=== PATIENT | female | born 1960 | race Caucasian/White ===

== ENCOUNTER 2021-01-15 10:35 | Inpatient (IN) | payer MEDICARE, MEDICAID ==
[~2021-01-15] VITALS: Ht 157.5 cm; Wt 57.3 kg
[2021-01-15] MEDS ORDERED: methylPREDNISolone sod succ 125mg/2ml vial IV ONE (10:45)
[2021-01-15] MEDS ORDERED: albuterol 2.5 MG/3 ML nebule NEB ONE (10:45)
[2021-01-15] MEDS ORDERED: iohexol 350MG/ML 100ml bottle IV ONE (11:10)
[2021-01-15 11:20] LABS: BASOPHILS # (AUTO) 0.1 X10'3 (0-0.2); BASOPHILS % (AUTO) 0.8 % (0-1); EOSINOPHILS # (AUTO) 0.1 X10'3 (0-0.9); EOSINOPHILS % (AUTO) 1.1 % (0-6); HEMATOCRIT 30.2 % (35.0-45.0); LYMPHOCYTES # (AUTO) 1.9 X10'3 (1.1-4.8); LYMPHOCYTES % (AUTO) 26.4 % (21-51); MEAN CORPUSCULAR HEMOGLOBIN 32.2 PG (27.0-31.0); MEAN CORPUSCULAR HGB CONC 33.2 g/dL (33.0-36.5); MEAN PLATELET VOLUME 8.1 FL (7.4-10.4); MONOCYTES # (AUTO) 0.6 X10'3 (0-0.9); MONOCYTES % (AUTO) 7.6 % (2-12); NEUTROPHILS # (AUTO) 4.7 X10'3 (1.8-7.7); NEUTROPHILS % (AUTO) 64.1 % (42-75); PLATELET COUNT 294 X10'3 (140-440); RED BLOOD COUNT 3.11 X10'6 (4.20-5.60); RED CELL DISTRIBUTION WIDTH 15.3 % (11.5-14.5); WHITE BLOOD COUNT 7.3 X10'3 (4.5-11.0)
[2021-01-15 11:35] LABS: ABG BASE EXCESS -7.8 mmol/L (-2.0-2.0); ABG HCO3 17.4 mmol/L (22.0-26.0); ABG OXYGEN SATURATION 95.3 % (94-97); ABG PCO2 (T) 33.9 mmHg (32.0-45.0); ABG PO2 (T) 82.9 mmHg (75.0-100.0); ALLEN'S TEST POSITIVE; FCOHb 0.7 % (0.0-3.9); FMetHb 0.4 % (0.0-1.5); FO2Hb 94.3 % (94-97); PATIENT TEMPERATURE 36.7; RESPIRATORY RATE 12 b/min; TOTAL HEMOGLOBIN 10.8 G/dl (12.0-16.0)
[2021-01-15 11:36] LABS: ALANINE AMINOTRANSFERASE 26 U/L (12-78); ALBUMIN/GLOBULIN RATIO 0.7 (1.1-1.5); ALKALINE PHOSPHATASE 96 IU/L (46-116); ANION GAP 14 (8-16); ASPARTATE AMINO TRANSFERASE 38 U/L (10-37); BILIRUBIN,TOTAL 0.8 MG/DL (0.1-1.0); BLOOD UREA NITROGEN 49 MG/DL (7-18); BUN/CREATININE RATIO 25.1 (6.6-38.0); CALCIUM 8.3 MG/DL (8.5-10.1); CHLORIDE 103 MMOL/L (99-107); CREATININE 1.95 MG/DL (0.40-0.90); GLUCOSE 137 MG/DL (70-104); POTASSIUM 4.8 MMOL/L (3.5-5.1); SODIUM 135 MMOL/L (135-145); TOTAL CARBON DIOXIDE 17.9 MMOL/L (24-32); TOTAL PROTEIN 7.2 G/DL (6.4-8.2); eGFR 26 ML/MIN
--- NOTE | 2021-01-15 11:43 | NUR ---
RELIEVING RN FOR BREAK, PT IS RESTING QUIETLY ON GURNEY, AUGUSTA BIPAP WELL, NO RESP DISTRESS,
[2021-01-15 12:04] LABS: PARTIAL THROMBOPLASTIN TIME 27 SECONDS (22-32)
[2021-01-15] MEDS ORDERED: aspirin 81mg tab.chew PO ONE (13:10)
[2021-01-15] MEDS ORDERED: nitroGLYCERIN 0.2mg/hour patch TD ONE (13:10)
[2021-01-15] MEDS ORDERED: FENO160T30 PO (13:40)
[2021-01-15] MEDS ORDERED: METO50TA17 PO (13:40)
[2021-01-15] MEDS ORDERED: LISI5TAB22 PO (13:40)
[2021-01-15] MEDS ORDERED: VERA240C2 PO (13:40)
[2021-01-15] MEDS ORDERED: EZET10TA6 PO (13:42)
[2021-01-15] MEDS ORDERED: ASPI-611 PO (13:42)
[2021-01-15] MEDS ORDERED: RIVA2.5T PO (13:42)
[2021-01-15] MEDS ORDERED: ROSU40TA PO (13:42)
[2021-01-15] MEDS ORDERED: mag hydrox/Alum hydrox/simeth 30ml oral suspension PO PRN (14:20)
[2021-01-15] MEDS ORDERED: acetaminophen 325mg tablet PO PRN (14:20)
[2021-01-15] MEDS ORDERED: ondansetron/PF 4mg/2ml inj IV PRN (14:20)
[2021-01-15] MEDS ORDERED: magnesium hydroxide 30ml (MOM) UD suspension PO PRN (14:20)
[2021-01-15] MEDS ORDERED: enoxaparin 60mg/0.6ml syringe SUBCUT ONE (15:25)
[2021-01-15] MEDS ORDERED: furosemide 10 MG/1 ML 10ml inj IV ONE (15:30)
[2021-01-15] MEDS ORDERED: albuterol 2.5 MG/3 ML nebule NEB PRN (18:20)
--- NOTE | 2021-01-15 18:30 | NUR ---
ASSUMED CARE OF PT. PT SLEEPING COMFORTABLY. AWAKENS SPONTANEOUSLY WHEN I ENTER ROOM. MEAL TRAY AT BEDSIDE.
[2021-01-15] MEDS: docusate sod 100mg capsule PO SCH (20:00)
[2021-01-15] MEDS: XARELTO 2.5 MG PO SCH (20:00)
[2021-01-15] MEDS: furosemide 40mg/4ml inj IV SCH (21:20)
[2021-01-15] MEDS: methylPREDNISolone sod succ 125mg/2ml vial IV SCH (21:20)
[2021-01-15] MEDS ORDERED: rivaroxaban 10mg tablet PO ONE (22:20)
[2021-01-15 22:21] LABS: CLARITY,URINE CLEAR (Clear); COLOR,URINE YELLOW (Yellow); UA COLLECTION TYPE NON-SPECIFIED
[2021-01-15 22:22] LABS: GLUCOSE, URINE NEGATIVE (Neg); KETONES,URINE NEGATIVE (Neg); LEUKOCYTE ESTERASE ,URINE NEGATIVE (Neg); NITRITES, URINE NEGATIVE (Neg); OCCULT BLOOD,URINE NEGATIVE (Neg); PROTEIN,URINE NEGATIVE (Neg); UROBILINOGEN,URINE 0.2 E.U/dL (0.2-1.0)
[2021-01-15 22:23] LABS: URINE AMPHETAMINE SCREEN NEGATIVE (Neg); URINE BARBITUATE SCREEN NEGATIVE (Neg); URINE BENZODIAZEPINES SCREEN NEGATIVE (Neg); URINE CANNABINOID SCREEN POSITIVE (Neg); URINE COCAINE SCREEN NEGATIVE (Neg); URINE METHADONE SCREEN NEGATIVE (Neg); URINE OPIATE SCREEN NEGATIVE (Neg); URINE PHENCYCLIDINE SCREEN NEGATIVE (Neg)
--- NOTE | 2021-01-15 23:00 | NUR ---
SPOKE TO DR AGUILAR AND PHARMACY CONCERNING PT'S XARELTO. PT TAKES 2.5 MG TWICE A DAY BUT PHARMACY ONLY CARRIES 10 MG TABS. PT DID NOT BRING HER OWN MEDICATION WITH HER. DR AGUILAR GAVE VERBAL ORDER FOR ONE DOSE 5MG XARELTO TO BE GIVEN NOW.
[2021-01-16 02:36] LABS: BASOPHILS % (AUTO) 0.5 % (0-1); EOSINOPHILS % (AUTO) 0 % (0-6); HEMATOCRIT 31.3 % (35.0-45.0); HEMOGLOBIN 10.5 g/dl (12.0-16.0); LYMPHOCYTES % (AUTO) 25.3 % (21-51); MEAN CORPUSCULAR HGB CONC 33.5 g/dL (33.0-36.5); MEAN CORPUSCULAR VOLUME 95.5 FL (78-98); MEAN PLATELET VOLUME 8.6 FL (7.4-10.4); MONOCYTES % (AUTO) 1.2 % (2-12); NEUTROPHILS # (AUTO) 2.9 X10'3 (1.8-7.7); PLATELET COUNT 277 X10'3 (140-440); RED BLOOD COUNT 3.28 X10'6 (4.20-5.60); RED CELL DISTRIBUTION WIDTH 15.3 % (11.5-14.5)
[2021-01-16 02:54] LABS: ALANINE AMINOTRANSFERASE 26 U/L (12-78); ALBUMIN 3.1 G/DL (3.4-5.0); ALBUMIN/GLOBULIN RATIO 0.7 (1.1-1.5); ALKALINE PHOSPHATASE 69 IU/L (46-116); ANION GAP 12 (8-16); ASPARTATE AMINO TRANSFERASE 41 U/L (10-37); BLOOD UREA NITROGEN 57 MG/DL (7-18); BUN/CREATININE RATIO 29.7 (6.6-38.0); CHLORIDE 105 MMOL/L (99-107); CREATININE 1.92 MG/DL (0.40-0.90); GLUCOSE 136 MG/DL (70-104); POTASSIUM 4.5 MMOL/L (3.5-5.1); SODIUM 138 MMOL/L (135-145); TOTAL CARBON DIOXIDE 20.8 MMOL/L (24-32); TOTAL PROTEIN 7.5 G/DL (6.4-8.2); eGFR 27 ML/MIN
--- NOTE | 2021-01-16 03:08 | NUR ---
PT SITTING UP AND PLAYING ON HER PHONE. NO COMPLAINTS. SHE REPORTS FEELING MUCH BETTER THAN WHEN SHE FIRST CAME IN.
[2021-01-16 06:00] VITALS: BP 122/69
--- NOTE | 2021-01-16 06:00 | NUR ---
received ED report, patient comfortable and without complaint in 3012A. Vitals were taken on patient and MRSA swab completed before it was time for shift change
--- NOTE | 2021-01-16 06:37 | NUR ---
Problems reprioritized. Patient report given, questions answered & plan of care reviewed with Radha MEJIA.
[2021-01-16] MEDS: XARELTO 2.5 MG PO SCH (08:00)
[2021-01-16] MEDS ORDERED: aspirin 81mg, enteric-coated 1 TAB TABLET.DR PO SCH (08:00)
[2021-01-16] MEDS ORDERED: ezetimibe 10mg tablet PO SCH (08:00)
[2021-01-16] MEDS ORDERED: fenofibrate 145mg tablet PO SCH (08:00)
[2021-01-16] MEDS ORDERED: atorvastatin 20mg tablet PO SCH (08:00)
[2021-01-16] MEDS ORDERED: metoprolol tartrate 50mg tablet PO SCH (08:00)
[2021-01-16] MEDS ORDERED: lisinopril 5mg tablet PO SCH (08:00)
[2021-01-16] MEDS ORDERED: CefTRIAXone/D5W-Rocephin 1gm 50 ML IV SCH (08:00)
[2021-01-16] MEDS ORDERED: verapamil SR 120mg (sust. release) tab PO SCH (08:00)
[2021-01-16] MEDS: methylPREDNISolone sod succ 125mg/2ml vial IV SCH (09:00)
[2021-01-16] MEDS: furosemide 40mg/4ml inj IV SCH (09:00)
[2021-01-16] MEDS: docusate sod 100mg capsule PO SCH (09:01)
[2021-01-16] MEDS ORDERED: gabapentin 300mg capsule PO ONE (09:25)
[2021-01-16] MEDS ORDERED: PRED20TA PO (10:43)
[2021-01-16] MEDS ORDERED: FURO-150 PO (10:43)
[2021-01-16] MEDS ORDERED: DOXY100C2 PO (10:43)
[2021-01-16 11:00] VITALS: BP 140/74
--- NOTE | 2021-01-16 13:45 | NUR ---
Pt stable for discharge. All d/c paperwork reviewed with pt. Pt verbalized understanding. All questions answered. New prescriptions faxed to [facility] and verified received. PIV removed from left forearm. tolerated well. telebox 23 removed and given to Mbite. All personal belongings sent with pt. Pt left via wheelchair by nursing staff to personal vehicle.
== END 2021-01-16 13:45 | disposition home or self-care (01) | DRG 189 ==
LOC: ER 10:35 → ED HOLD 14:21 → PCU 3S 01-16 09:30
PROVIDERS: ADMIT Family Medicine; ATTEND Family Medicine
PROC: 5A09357 Assistance with Respiratory Ventilation, Less than 24 Consecutive Hours, Continuous Positive Airway Pressure (ICD-10-PCS; principal; 2021-01-15)
DX: J96.01 Acute respiratory failure with hypoxia (principal); I21.A1 Myocardial infarction type 2; I50.33 Acute on chronic diastolic (congestive) heart failure; I13.0 Hypertensive heart and chronic kidney disease with heart failure and stage 1 through stage 4 chronic kidney disease, or unspecified chronic kidney disease; J44.1 Chronic obstructive pulmonary disease with (acute) exacerbation; I42.9 Cardiomyopathy, unspecified; N18.9 Chronic kidney disease, unspecified; Z20.822 Contact with and (suspected) exposure to COVID-19; E78.5 Hyperlipidemia, unspecified; F12.90 Cannabis use, unspecified, uncomplicated; I73.9 Peripheral vascular disease, unspecified; Z91.14 Patient's other noncompliance with medication regimen; Z91.19 Patient's noncompliance with other medical treatment and regimen; Z88.8 Allergy status to other drugs, medicaments and biological substances; Z90.49 Acquired absence of other specified parts of digestive tract; Z88.7 Allergy status to serum and vaccine; Z71.51 Drug abuse counseling and surveillance of drug abuser
CPT/HCPCS: 36415; 36600; 71045; 80053; 80305; 81003; 82803; 83880; 84443; 84484; 85018; 85025; 85610; 85730; 87081; 87635; 93005; 93306; 94640; 94660; 94760; 99291; C9803; G0378; J1650; J1940; J2930; Q9967

== ENCOUNTER 2021-03-20 20:46 | Inpatient (IN) | payer MEDICARE, MEDICAID ==
[~2021-03-20] VITALS: Ht 172.7 cm; Wt 60.0 kg
[~2021-03-20 20:46] MED LIST: ASPI-611 PO; EZET10TA6 PO; FENO160T30 PO; METO50CA PO; ONDA4TAB6 PO; RIVA2.5T PO; ROSU40TA PO; VERA240C2 PO
[2021-03-20] MEDS ORDERED: nitroGLYCERIN-Tridil 50MG/D5W 250 ML IV PRN (21:00)
[2021-03-20] MEDS ORDERED: nitroGLYCERIN 0.4mg SUBLingual tab SL PRN (21:00)
[2021-03-20] MEDS: nitroGLYCERIN-Tridil 50MG/D5W 250 ML IV PRN ×2 (21:14→22:38)
[2021-03-20 21:17] LABS: BASOPHILS # (AUTO) 0.1 X10'3 (0-0.2); BASOPHILS % (AUTO) 0.7 % (0-1); EOSINOPHILS # (AUTO) 0.2 X10'3 (0-0.9); HEMOGLOBIN 8.9 g/dl (12.0-16.0); LYMPHOCYTES # (AUTO) 8.2 X10'3 (1.1-4.8); LYMPHOCYTES % (AUTO) 52.5 % (21-51); MEAN CORPUSCULAR HGB CONC 30.6 g/dL (33.0-36.5); MEAN PLATELET VOLUME 8.4 FL (7.4-10.4)
[2021-03-20 21:19] LABS: EOSINOPHILS % (AUTO) 1.1 % (0-6); MEAN CORPUSCULAR HEMOGLOBIN 31.1 PG (27.0-31.0); MEAN CORPUSCULAR VOLUME 101.8 FL (78-98); MONOCYTES % (AUTO) 6.3 % (2-12); NEUTROPHILS # (AUTO) 6.1 X10'3 (1.8-7.7); NEUTROPHILS % (AUTO) 39.4 % (42-75); PLATELET COUNT 225 X10'3 (140-440); RED BLOOD COUNT 2.84 X10'6 (4.20-5.60); RED CELL DISTRIBUTION WIDTH 22.5 % (11.5-14.5); WHITE BLOOD COUNT 15.6 X10'3 (4.5-11.0)
[2021-03-20 21:20] LABS: ALANINE AMINOTRANSFERASE 12 U/L (12-78); ALBUMIN/GLOBULIN RATIO 0.7 (1.1-1.5); ALKALINE PHOSPHATASE 112 IU/L (46-116); ANION GAP 18 (8-16); ASPARTATE AMINO TRANSFERASE 40 U/L (10-37); BILIRUBIN,TOTAL 0.9 MG/DL (0.1-1.0); BLOOD UREA NITROGEN 60 MG/DL (7-18); BUN/CREATININE RATIO 30.8 (6.6-38.0); CALCIUM 8.7 MG/DL (8.5-10.1); CHLORIDE 104 MMOL/L (99-107); CREATININE 1.95 MG/DL (0.40-0.90); GLUCOSE 171 MG/DL (70-104); POTASSIUM 4.8 MMOL/L (3.5-5.1); SODIUM 137 MMOL/L (135-145); TOTAL CARBON DIOXIDE 15.4 MMOL/L (24-32); TOTAL PROTEIN 7.2 G/DL (6.4-8.2); eGFR 26 ML/MIN
[2021-03-20] MEDS ORDERED: GABA300T25 PO (21:23)
[2021-03-20 21:28] LABS: C-REACTIVE PROTEIN 0.42 MG/DL (0.0-0.5); MAGNESIUM 2.2 MG/DL (1.5-2.4)
[2021-03-20 21:29] LABS: ABG BASE EXCESS -11.5 mmol/L (-2.0-2.0); ABG HCO3 14.4 mmol/L (22.0-26.0); ABG OXYGEN SATURATION 98.3 % (94-97); ABG PCO2 (T) 31.7 mmHg (32.0-45.0); ABG PO2 (T) 127.8 mmHg (75.0-100.0); ALLEN'S TEST POSITIVE; FCOHb 1.3 % (0.0-3.9); FMetHb 0.3 % (0.0-1.5); FO2Hb 96.7 % (94-97); PATIENT TEMPERATURE 36.6; RESPIRATORY RATE 12 b/min; TOTAL HEMOGLOBIN 9.4 G/dl (12.0-16.0)
[2021-03-20 21:38] LABS: APTT 29 SECONDS (22-32)
[2021-03-20 21:56] LABS: PLATELET ESTIMATE NORMAL; TOTAL CELLS COUNTED 100
[2021-03-20 21:57] LABS: ANISOCYTOSIS 3+; STOMATOCYTES 1+
[2021-03-20 21:58] LABS: ELLIPTOCYTES FEW; HYPOCHROMASIA 1+; POLYCHROMASIA FEW
[2021-03-20 22:08] LABS: D-DIMER 16.35 MG/L FEU (0-0.50)
--- NOTE | 2021-03-20 22:12 | NUR ---
Patient appears asleep and is improved. remains on bipap and nitro gtt 10mcg/min. Will CTM.
[2021-03-20] MEDS ORDERED: iohexol 350MG/ML 100ml bottle IV ONE (22:32)
[2021-03-20] MEDS ORDERED: enalaprilat dihydrate 2.5mg/2ml vial IV ONE (23:00)
[2021-03-20 23:35] LABS: ABG BASE EXCESS -8.5 mmol/L (-2.0-2.0); ABG HCO3 16.6 mmol/L (22.0-26.0); ABG OXYGEN SATURATION 99.5 % (94-97); ABG PCO2 (T) 31.9 mmHg (32.0-45.0); ABG PO2 (T) 254.7 mmHg (75.0-100.0); ALLEN'S TEST POSITIVE; FCOHb 0.8 % (0.0-3.9); FMetHb 0.2 % (0.0-1.5); FO2Hb 98.5 % (94-97); PATIENT TEMPERATURE 36.8; RESPIRATORY RATE 12 b/min; TOTAL HEMOGLOBIN 8.1 G/dl (12.0-16.0)
[2021-03-21] MEDS ORDERED: magnesium Cl slow-release 64mg tablet PO PRN (01:10)
[2021-03-21] MEDS ORDERED: potassium Cl 20 mEq SR tablet PO PRN ×2 (01:10)
[2021-03-21] MEDS ORDERED: potassium CL 10mEq/100ml bag 100 ML IV PRN (01:10)
[2021-03-21] MEDS ORDERED: acetaminophen 325mg tablet PO PRN ×2 (01:10)
[2021-03-21] MEDS ORDERED: magnesium 2GM in 50ml NS 50 ML IV PRN (01:10)
[2021-03-21] MEDS ORDERED: magnesium 4gm in 100ml NS 100 ML IV PRN (01:10)
[2021-03-21] MEDS ORDERED: magnesium hydroxide 30ml (MOM) UD suspension PO PRN (01:10)
[2021-03-21] MEDS: heparin, porcine 5000 units/ml vial SQ SCH ×4 (01:14→23:22)
[2021-03-21] MEDS ORDERED: ondansetron 4mg rapidly disintigrating tab PO PRN (01:20)
[2021-03-21] MEDS: normal saline 1000ml 1,000 ML IV SCH ×2 (01:41→21:10)
[2021-03-21] MEDS: nitroGLYCERIN-Tridil 50MG/D5W 250 ML IV PRN (01:42)
[2021-03-21 01:54] LABS: MAGNESIUM 2.1 MG/DL (1.5-2.4); POTASSIUM 5.2 MMOL/L (3.5-5.1)
[2021-03-21] MEDS ORDERED: albuterol 2.5 MG/3 ML nebule NEB SCH (04:00)
--- NOTE | 2021-03-21 05:14 | NUR ---
pt complains of VERDE now. ongoing nitro gtt at 20mcg/min - see MAR
[2021-03-21 05:45] LABS: CLARITY,URINE CLEAR (Clear); GLUCOSE, URINE NEGATIVE (Neg); KETONES,URINE NEGATIVE (Neg); LEUKOCYTE ESTERASE ,URINE NEGATIVE (Neg); NITRITES, URINE NEGATIVE (Neg); OCCULT BLOOD,URINE NEGATIVE (Neg); PROTEIN,URINE NEGATIVE (Neg); UROBILINOGEN,URINE 0.2 E.U/dL (0.2-1.0)
[2021-03-21 05:55] LABS: UA COLLECTION TYPE VOIDED
[2021-03-21 05:56] LABS: COLOR,URINE STRAW (Yellow)
[2021-03-21] MEDS: aspirin 81mg, enteric-coated 1 TAB TABLET.DR PO SCH (08:00)
[2021-03-21] MEDS: furosemide 40mg/4ml inj IV SCH ×2 (08:00→22:20)
[2021-03-21] MEDS: ezetimibe 10mg tablet PO SCH (08:00)
[2021-03-21] MEDS ORDERED: non-formulary drug (Rivaroxaban (Xarelto) 1 TAB) PO SCH (08:00)
[2021-03-21] MEDS: metoprolol succinate 25mg (24-HOUR) SR. Tablet PO SCH (08:00)
[2021-03-21] MEDS: K and/or MAG REPLACEMENT MC SCH ×2 (08:00→20:00)
[2021-03-21] MEDS: atorvastatin 20mg tablet PO SCH (08:00)
[2021-03-21] MEDS: methylPREDNISolone sod succ 125mg/2ml vial IV SCH ×2 (08:00→22:20)
[2021-03-21] MEDS: verapamil SR 120mg (sust. release) tab PO SCH ×2 (08:00→21:20)
[2021-03-21] MEDS: CefTRIAXone 2gm/D5W 50ml BAG 50 ML IV SCH (08:00)
[2021-03-21] MEDS ORDERED: ipratropium/albuterol 3ml nebule NEB PRN (08:25)
[2021-03-21] MEDS ORDERED: albuterol 2.5 MG/3 ML nebule NEB PRN (08:25)
--- NOTE | 2021-03-21 09:10 | NUR ---
ALL MEDICATION CHECKED W/5 RIGHTS. SCANNER NOT WORKING. PURPOSE AND SIDE EFFECTS DISCUSSED W/ PT.
[2021-03-21 09:16] LABS: EOSINOPHILS % (AUTO) 0.3 % (0-6); MONOCYTES # (AUTO) 0.7 X10'3 (0-0.9)
[2021-03-21 09:18] LABS: BASOPHILS # (AUTO) 0.1 X10'3 (0-0.2); BASOPHILS % (AUTO) 0.9 % (0-1); HEMATOCRIT 25.6 % (35.0-45.0); LYMPHOCYTES % (AUTO) 19.9 % (21-51); MEAN CORPUSCULAR HEMOGLOBIN 31.5 PG (27.0-31.0); MEAN CORPUSCULAR HGB CONC 31.4 g/dL (33.0-36.5); MEAN CORPUSCULAR VOLUME 100.3 FL (78-98); MEAN PLATELET VOLUME 8.3 FL (7.4-10.4); MONOCYTES % (AUTO) 7.3 % (2-12); NEUTROPHILS % (AUTO) 71.6 % (42-75); PLATELET COUNT 182 X10'3 (140-440); RED BLOOD COUNT 2.55 X10'6 (4.20-5.60); RED CELL DISTRIBUTION WIDTH 22.9 % (11.5-14.5); WHITE BLOOD COUNT 9.8 X10'3 (4.5-11.0)
[2021-03-21 10:03] LABS: ALANINE AMINOTRANSFERASE 19 U/L (12-78); ALBUMIN 2.8 G/DL (3.4-5.0); ALBUMIN/GLOBULIN RATIO 0.7 (1.1-1.5); ALKALINE PHOSPHATASE 85 IU/L (46-116); ANION GAP 13 (8-16); ASPARTATE AMINO TRANSFERASE 47 U/L (10-37); BILIRUBIN,TOTAL 0.9 MG/DL (0.1-1.0); BLOOD UREA NITROGEN 58 MG/DL (7-18); BUN/CREATININE RATIO 33.1 (6.6-38.0); CALCIUM 8.9 MG/DL (8.5-10.1); CHLORIDE 107 MMOL/L (99-107); CREATININE 1.75 MG/DL (0.40-0.90); GLUCOSE 117 MG/DL (70-104); POTASSIUM 5.2 MMOL/L (3.5-5.1); SODIUM 139 MMOL/L (135-145); TOTAL CARBON DIOXIDE 18.8 MMOL/L (24-32); TOTAL PROTEIN 6.6 G/DL (6.4-8.2); eGFR 30 ML/MIN
[2021-03-21] MEDS ORDERED: hydrALAZINE 20mg/ml inj. IV PRN (10:50)
[2021-03-21] MEDS ORDERED: LISI5TAB22 PO (11:14)
--- NOTE | 2021-03-21 12:13 | NUR ---
SPOKE W/ DR. DARNELL FOR ORDER CLARIFICATION. PER MD; ADMINISTER HYDRALAZINE 10MG FOR HTN. CONT. NITRO GTT W/ GOAL TO TITRATE NITRO DOSE.
[2021-03-21] MEDS ORDERED: lisinopril 20mg tablet PO ONE (15:25)
--- NOTE | 2021-03-21 19:17 | NUR ---
assumed care of patient. placed patient on an inpatient bed. Advocated to CN for room assignment. see MAR/ patient is aox4 98% RA and bp within acceptable range. patient is asking about her verapamil. will notify hospitalist.
[2021-03-21] MEDS ORDERED: temazepam 15mg capsule PO PRN (21:00)
[2021-03-21 22:00] VITALS: BP 139/55
[2021-03-21] MEDS: lactobacillus rhamnosus 10,000 MMU CELLS/CAPSULE PO SCH (22:20)
[2021-03-22 02:00] VITALS: BP 160/77
--- NOTE | 2021-03-22 06:30 | NUR ---
Patient in room PCU 3017. I have received report from Asmita RN and had the opportunity to ask questions and assume patient care. Patient is up and watching tv, asked questions about the plan of care for the day. Patient is wanting to be discharged if possible. All needs are met at this time.
[2021-03-22 07:09] LABS: BASOPHILS # (AUTO) 0.1 X10'3 (0-0.2); BASOPHILS % (AUTO) 0.8 % (0-1); EOSINOPHILS % (AUTO) 0.2 % (0-6); HEMATOCRIT 25.1 % (35.0-45.0); HEMOGLOBIN 7.9 g/dl (12.0-16.0); LYMPHOCYTES # (AUTO) 2.5 X10'3 (1.1-4.8); LYMPHOCYTES % (AUTO) 29.6 % (21-51); MEAN CORPUSCULAR HEMOGLOBIN 31.5 PG (27.0-31.0); MEAN CORPUSCULAR HGB CONC 31.6 g/dL (33.0-36.5); MEAN CORPUSCULAR VOLUME 99.6 FL (78-98); MEAN PLATELET VOLUME 8.7 FL (7.4-10.4); MONOCYTES % (AUTO) 11.8 % (2-12); NEUTROPHILS # (AUTO) 4.8 X10'3 (1.8-7.7); NEUTROPHILS % (AUTO) 57.6 % (42-75); PLATELET COUNT 199 X10'3 (140-440); RED BLOOD COUNT 2.52 X10'6 (4.20-5.60); RED CELL DISTRIBUTION WIDTH 22.7 % (11.5-14.5); WHITE BLOOD COUNT 8.4 X10'3 (4.5-11.0)
[2021-03-22 07:28] LABS: ALANINE AMINOTRANSFERASE 19 U/L (12-78); ALBUMIN 2.8 G/DL (3.4-5.0); ALBUMIN/GLOBULIN RATIO 0.8 (1.1-1.5); ALKALINE PHOSPHATASE 71 IU/L (46-116); ANION GAP 13 (8-16); ASPARTATE AMINO TRANSFERASE 39 U/L (10-37); BILIRUBIN,TOTAL 0.8 MG/DL (0.1-1.0); BLOOD UREA NITROGEN 63 MG/DL (7-18); BUN/CREATININE RATIO 38.9 (6.6-38.0); CALCIUM 9.3 MG/DL (8.5-10.1); CHLORIDE 108 MMOL/L (99-107); CHOL/HDL RATIO 14.2 (0.00-4.99); CHOLESTEROL 128 MG/DL (0-200); CREATININE 1.62 MG/DL (0.40-0.90); GLUCOSE 105 MG/DL (70-104); HDL CHOLESTEROL 9 MG/DL (35-60); LDL CHOLESTEROL 88 MG/DL (50-100); POTASSIUM 4.5 MMOL/L (3.5-5.1); SODIUM 140 MMOL/L (135-145); TOTAL CARBON DIOXIDE 19.2 MMOL/L (24-32); TOTAL PROTEIN 6.5 G/DL (6.4-8.2); TRIGLYCERIDES 159 MG/DL (20-135); eGFR 33 ML/MIN
[2021-03-22] MEDS: K and/or MAG REPLACEMENT MC SCH (08:00)
[2021-03-22] MEDS ORDERED: lisinopril 5mg tablet PO SCH (08:00)
[2021-03-22] MEDS: methylPREDNISolone sod succ 125mg/2ml vial IV SCH (08:31)
[2021-03-22] MEDS: furosemide 40mg/4ml inj IV SCH (08:31)
[2021-03-22] MEDS: heparin, porcine 5000 units/ml vial SQ SCH (08:32)
[2021-03-22] MEDS: atorvastatin 20mg tablet PO SCH (08:32)
[2021-03-22] MEDS: metoprolol succinate 25mg (24-HOUR) SR. Tablet PO SCH (08:32)
[2021-03-22] MEDS: CefTRIAXone 2gm/D5W 50ml BAG 50 ML IV SCH (08:32)
[2021-03-22 08:33] VITALS: BP_SYST 151
[2021-03-22] MEDS: aspirin 81mg, enteric-coated 1 TAB TABLET.DR PO SCH (08:33)
[2021-03-22] MEDS: lactobacillus rhamnosus 10,000 MMU CELLS/CAPSULE PO SCH (08:33)
[2021-03-22] MEDS: ezetimibe 10mg tablet PO SCH (08:33)
[2021-03-22] MEDS: verapamil SR 120mg (sust. release) tab PO SCH (08:33)
[2021-03-22 09:06] LABS: PLATELET ESTIMATE NORMAL
[2021-03-22 09:07] LABS: ANISOCYTOSIS 3+; TARGET CELLS 1+
[2021-03-22 09:08] LABS: POLYCHROMASIA 1+; SCHISTOCYTES FEW
[2021-03-22] MEDS ORDERED: ALBU8.5H17 INH (11:16)
[2021-03-22] MEDS ORDERED: PRED20TA PO (11:16)
[2021-03-22] MEDS ORDERED: FURO40TA4 PO (11:16)
[2021-03-22] MEDS ORDERED: CEFD300C3 PO (11:16)
--- NOTE | 2021-03-22 14:10 | NUR ---
Patient is stable for discharge per MD. Patient was educated and was able to ask questions about new medications and diagnosis. PIV was removed and tele was discontinued. Wheeled patient down to car where mom picked her up to discharge home.
== END 2021-03-22 16:05 | disposition home or self-care (01) | DRG 189 ==
LOC: ER 20:47 → ED HOLD 03-21 01:14 → PCU 3S 03-21 21:40
PROVIDERS: ADMIT Internal Medicine; ATTEND Family Medicine
PROC: 5A09357 Assistance with Respiratory Ventilation, Less than 24 Consecutive Hours, Continuous Positive Airway Pressure (ICD-10-PCS; 2021-03-20)
PROC: CB121ZZ Planar Nuclear Medicine Imaging of Lungs and Bronchi using Technetium 99m (Tc-99m) (ICD-10-PCS; principal; 2021-03-21)
DX: J96.01 Acute respiratory failure with hypoxia (principal); I21.A1 Myocardial infarction type 2; I50.43 Acute on chronic combined systolic (congestive) and diastolic (congestive) heart failure; I13.0 Hypertensive heart and chronic kidney disease with heart failure and stage 1 through stage 4 chronic kidney disease, or unspecified chronic kidney disease; J44.1 Chronic obstructive pulmonary disease with (acute) exacerbation; I16.1 Hypertensive emergency; I48.20 Chronic atrial fibrillation, unspecified; N17.9 Acute kidney failure, unspecified; I42.9 Cardiomyopathy, unspecified; N18.9 Chronic kidney disease, unspecified; I73.9 Peripheral vascular disease, unspecified; I08.3 Combined rheumatic disorders of mitral, aortic and tricuspid valves; I25.10 Atherosclerotic heart disease of native coronary artery without angina pectoris; Z20.822 Contact with and (suspected) exposure to COVID-19; E78.5 Hyperlipidemia, unspecified; F12.90 Cannabis use, unspecified, uncomplicated; Z79.01 Long term (current) use of anticoagulants; Z79.899 Other long term (current) drug therapy; Z87.891 Personal history of nicotine dependence; Z95.1 Presence of aortocoronary bypass graft; Z88.6 Allergy status to analgesic agent; Z88.7 Allergy status to serum and vaccine; Z91.048 Other nonmedicinal substance allergy status; Z79.82 Long term (current) use of aspirin
CPT/HCPCS: 36415; 36600; 71045; 78582; 80053; 80061; 81003; 82803; 83605; 83735; 83880; 84132; 84484; 85007; 85008; 85018; 85025; 85379; 85610; 85730; 86140; 87040; 87081; 87635; 93005; 93308; 94660; 94760; 99291; A9539; A9540; G0378; J0360; J0696; J1644; J1940; J2930; J3490; J7030; Q9967

== ENCOUNTER 2021-04-04 15:26 | Emergency (ER) | payer MEDICARE, MEDICAID ==
[~2021-04-04] VITALS: Ht 157.5 cm; Wt 125.0 kg
[~2021-04-04 15:26] MED LIST changes: +ALBU8.5H17 INH; +CEFD300C3 PO; +FURO40TA4 PO; +GABA300T25 PO; +LISI5TAB22 PO; -ONDA4TAB6 PO; +PRED20TA PO
[2021-04-04 16:48] LABS: BASOPHILS % (AUTO) 0.3 % (0-1); EOSINOPHILS # (AUTO) 0.1 X10'3 (0-0.9); EOSINOPHILS % (AUTO) 1.2 % (0-6); HEMATOCRIT 25.3 % (35.0-45.0); LYMPHOCYTES # (AUTO) 2.2 X10'3 (1.1-4.8); LYMPHOCYTES % (AUTO) 27.7 % (21-51); MEAN CORPUSCULAR HEMOGLOBIN 29.3 PG (27.0-31.0); MEAN CORPUSCULAR HGB CONC 31.8 g/dL (33.0-36.5); MEAN CORPUSCULAR VOLUME 92.4 FL (78-98); MEAN PLATELET VOLUME 8.8 FL (7.4-10.4); MONOCYTES # (AUTO) 1.2 X10'3 (0-0.9); NEUTROPHILS # (AUTO) 4.3 X10'3 (1.8-7.7); NEUTROPHILS % (AUTO) 54.8 % (42-75); PLATELET COUNT 164 X10'3 (140-440); RED BLOOD COUNT 2.74 X10'6 (4.20-5.60); RED CELL DISTRIBUTION WIDTH 20.6 % (11.5-14.5); WHITE BLOOD COUNT 7.8 X10'3 (4.5-11.0)
[2021-04-04 17:03] LABS: ALANINE AMINOTRANSFERASE 31 U/L (12-78); ALBUMIN 2.4 G/DL (3.4-5.0); ALBUMIN/GLOBULIN RATIO 0.7 (1.1-1.5); ALKALINE PHOSPHATASE 122 IU/L (46-116); ANION GAP 13 (8-16); ASPARTATE AMINO TRANSFERASE 42 U/L (10-37); BILIRUBIN,TOTAL 0.6 MG/DL (0.1-1.0); BLOOD UREA NITROGEN 129 MG/DL (7-18); BUN/CREATININE RATIO 41.9 (6.6-38.0); CALCIUM 8.2 MG/DL (8.5-10.1); CHLORIDE 107 MMOL/L (99-107); CREATININE 3.08 MG/DL (0.40-0.90); GLUCOSE 115 MG/DL (70-104); POTASSIUM 5.5 MMOL/L (3.5-5.1); SODIUM 139 MMOL/L (135-145); TOTAL CARBON DIOXIDE 18.6 MMOL/L (24-32); TOTAL PROTEIN 5.7 G/DL (6.4-8.2); eGFR 15 ML/MIN
[2021-04-04 18:04] LABS: ANISOCYTOSIS 3+; PLATELET ESTIMATE NORMAL; SCHISTOCYTES FEW; TARGET CELLS FEW; TOTAL CELLS COUNTED 100
[2021-04-04 18:05] LABS: HYPERSEGMENTED NEUTROPHILS 2+; LARGE PLATELETS FEW; MICROCYTOSIS FEW; POLYCHROMASIA FEW
[2021-04-04 23:46] VITALS: BP 150/78
== END 2021-04-05 | disposition home or self-care (01) ==
LOC: ER 15:27
DX: K62.5 Hemorrhage of anus and rectum (principal); R10.30 Lower abdominal pain, unspecified; I13.0 Hypertensive heart and chronic kidney disease with heart failure and stage 1 through stage 4 chronic kidney disease, or unspecified chronic kidney disease; I50.9 Heart failure, unspecified; N18.9 Chronic kidney disease, unspecified; J44.9 Chronic obstructive pulmonary disease, unspecified; Z95.1 Presence of aortocoronary bypass graft; Z88.6 Allergy status to analgesic agent; Z79.82 Long term (current) use of aspirin; Z79.899 Other long term (current) drug therapy
CPT/HCPCS: 36415; 80053; 85007; 85025; 85610; 86885; 86900; 86901; 99283

== ENCOUNTER 2021-04-24 12:21 | Inpatient (IN) | payer MEDICARE, MEDICAID ==
[2021-04-24] VITALS (9 sets, daily range): BP systolic 95–124; BP diastolic 49–98
[~2021-04-24] VITALS: Ht 157.5 cm; Wt 56.8 kg
[2021-04-24 13:28] LABS: BASOPHILS % (AUTO) 0.5 % (0-1); EOSINOPHILS % (AUTO) 0.2 % (0-6); LYMPHOCYTES # (AUTO) 1.1 X10'3 (1.1-4.8); LYMPHOCYTES % (AUTO) 18.4 % (21-51); MEAN CORPUSCULAR HEMOGLOBIN 24.2 PG (27.0-31.0); MEAN CORPUSCULAR HGB CONC 29.5 g/dL (33.0-36.5); MEAN CORPUSCULAR VOLUME 82.2 FL (78-98); MEAN PLATELET VOLUME 8.6 FL (7.4-10.4); MONOCYTES # (AUTO) 0.7 X10'3 (0-0.9); MONOCYTES % (AUTO) 12.2 % (2-12); NEUTROPHILS # (AUTO) 4.2 X10'3 (1.8-7.7); NEUTROPHILS % (AUTO) 68.7 % (42-75); PLATELET COUNT 207 X10'3 (140-440); RED BLOOD COUNT 2.37 X10'6 (4.20-5.60); WHITE BLOOD COUNT 6.1 X10'3 (4.5-11.0)
[2021-04-24 13:36] LABS: ALANINE AMINOTRANSFERASE 64 U/L (12-78); ALBUMIN 2.5 G/DL (3.4-5.0); ALBUMIN/GLOBULIN RATIO 0.6 (1.1-1.5); ALKALINE PHOSPHATASE 77 IU/L (46-116); ANION GAP 26 (8-16); ASPARTATE AMINO TRANSFERASE 159 U/L (10-37); BILIRUBIN,TOTAL 1.9 MG/DL (0.1-1.0); CALCIUM 7.2 MG/DL (8.5-10.1); CHLORIDE 87 MMOL/L (99-107); CREATININE 12.86 MG/DL (0.40-0.90); ETHANOL < 0.010 GM/DL (0.0-0.010); GLUCOSE 88 MG/DL (70-104); SODIUM 128 MMOL/L (135-145); TOTAL CARBON DIOXIDE 15.5 MMOL/L (24-32); TOTAL PROTEIN 6.5 G/DL (6.4-8.2); eGFR 3 ML/MIN
[2021-04-24 13:44] LABS: HEMOGLOBIN 5.7 g/dl (12.0-16.0)
[2021-04-24 13:45] LABS: HEMATOCRIT 19.5 % (35.0-45.0); PLATELET ESTIMATE NORMAL
[2021-04-24 13:46] LABS: ANISOCYTOSIS 3+
[2021-04-24 13:51] LABS: NUCLEATED RED BLOOD CELLS 15 /100WBC (0-0); TOTAL CELLS COUNTED 100
[2021-04-24 13:52] LABS: ELLIPTOCYTES FEW; HYPOCHROMASIA 1+; POLYCHROMASIA 1+; TARGET CELLS FEW
[2021-04-24 13:57] LABS: BLOOD UREA NITROGEN 243 MG/DL (7-18)
[2021-04-24 13:58] LABS: BUN/CREATININE RATIO 18.9 (6.6-38.0); POTASSIUM 7.6 MMOL/L (3.5-5.1)
[2021-04-24] MEDS ORDERED: calcium chloride 100 MG/1 ML inj IV STA (15:46)
[2021-04-24] MEDS ORDERED: SODIUM ZIRCONIUM CYCLOSILICATE 10 GM POWD.PACK PO STA (15:46)
[2021-04-24] MEDS ORDERED: insulin regular, human U-100 3ml vial - multi-dose IV ONE (15:50)
[2021-04-24] MEDS ORDERED: dextrose 50%-water 50ml dispensing syringe IV ONE (15:50)
[2021-04-24] MEDS ORDERED: albuterol 2.5 MG/3 ML nebule CONTNEB PRN (15:50)
[2021-04-24] MEDS: sodium bicarbonate (8.4%) inj. 150 MEQ in dextrose 5%-water 1,000 ML IV SCH (16:13)
[2021-04-24 16:26] LABS: ABG BASE EXCESS -9.6 mmol/L (-2.0-2.0); ABG HCO3 14.6 mmol/L (22.0-26.0); ABG OXYGEN SATURATION 85.3 % (94-97); ABG PCO2 (T) 24.5 mmHg (32.0-45.0); ABG PO2 (T) 53.7 mmHg (75.0-100.0); ALLEN'S TEST POSITIVE; FCOHb 0.5 % (0.0-3.9); FMetHb 0.2 % (0.0-1.5); FO2Hb 84.7 % (94-97); TOTAL HEMOGLOBIN 4.8 G/dl (12.0-16.0)
[2021-04-24] MEDS ORDERED: sodium bicarbonate (8.4%) 1 mEq/ml syringe IV ONE (16:50)
[2021-04-24] MEDS ORDERED: VERA240T92 PO (17:09)
[2021-04-24] MEDS ORDERED: ALBU17AE26 PO (17:09)
[2021-04-24] MEDS ORDERED: OXYB5TAB16 PO (17:09)
[2021-04-24] MEDS ORDERED: METO-384 PO (17:09)
[2021-04-24] MEDS ORDERED: ROSU40TA22 PO (17:09)
[2021-04-24] MEDS ORDERED: FENO160T PO (17:09)
[2021-04-24] MEDS ORDERED: ASPI-1265 PO (17:09)
[2021-04-24] MEDS ORDERED: EZET10TA48 PO (17:09)
[2021-04-24] MEDS ORDERED: GABA300C PO (17:10)
[2021-04-24] MEDS ORDERED: GABA600T13 PO (17:10)
[2021-04-24] MEDS ORDERED: LIDOcaine 2% 10ml TOPICAL JELLY (Urojet) TP ONE (17:30)
[2021-04-24] MEDS ORDERED: normal saline 1000ml 1,000 ML IV ONE (17:55)
[2021-04-24] MEDS ORDERED: DESMOPRESSIN IV ONE (19:15)
[2021-04-24] MEDS ORDERED: NORMAL SALINE IV ONE (19:15)
[2021-04-24] MEDS ORDERED: magnesium 4gm in 100ml NS 100 ML IV PRN (19:50)
[2021-04-24] MEDS: normal saline 1000ml 1,000 ML IV SCH (19:50)
[2021-04-24] MEDS ORDERED: magnesium Cl slow-release 64mg tablet PO PRN (19:50)
[2021-04-24] MEDS ORDERED: potassium CL 10mEq/100ml bag 100 ML IV PRN (19:50)
[2021-04-24] MEDS ORDERED: potassium Cl 20 mEq SR tablet PO PRN ×2 (19:50)
[2021-04-24] MEDS ORDERED: magnesium 2GM in 50ml NS 50 ML IV PRN (19:50)
[2021-04-24] MEDS ORDERED: K and/or MAG REPLACEMENT MC SCH (20:00)
[2021-04-24 20:01] LABS: MEAN CORPUSCULAR VOLUME 81.5 FL (78-98); MONOCYTES # (AUTO) 0.9 X10'3 (0-0.9); WHITE BLOOD COUNT 5.7 X10'3 (4.5-11.0)
[2021-04-24 20:02] LABS: BASOPHILS % (AUTO) 0.4 % (0-1); EOSINOPHILS % (AUTO) 0.1 % (0-6); LYMPHOCYTES # (AUTO) 0.5 X10'3 (1.1-4.8); LYMPHOCYTES % (AUTO) 8.6 % (21-51); MEAN CORPUSCULAR HEMOGLOBIN 25.6 PG (27.0-31.0); MEAN CORPUSCULAR HGB CONC 31.4 g/dL (33.0-36.5); MEAN PLATELET VOLUME 8.2 FL (7.4-10.4); MONOCYTES % (AUTO) 16.7 % (2-12); NEUTROPHILS # (AUTO) 4.2 X10'3 (1.8-7.7); NEUTROPHILS % (AUTO) 74.2 % (42-75); PLATELET COUNT 163 X10'3 (140-440); RED BLOOD COUNT 2.19 X10'6 (4.20-5.60); RED CELL DISTRIBUTION WIDTH 22.9 % (11.5-14.5)
[2021-04-24 20:21] LABS: CLARITY,URINE CLOUDY (Clear); COLOR,URINE YELLOW (Yellow); GLUCOSE, URINE NEGATIVE (Neg); KETONES,URINE NEGATIVE (Neg); LEUKOCYTE ESTERASE ,URINE NEGATIVE (Neg); NITRITES, URINE NEGATIVE (Neg); OCCULT BLOOD,URINE SMALL (Neg); PROTEIN,URINE 100 mg/dl (Neg); UROBILINOGEN,URINE 0.2 E.U/dL (0.2-1.0)
[2021-04-24 20:26] LABS: UA COLLECTION TYPE FOLEY CATH
[2021-04-24 20:26] LABS: HEMATOCRIT 17.9 % (35.0-45.0); HEMOGLOBIN 5.6 g/dl (12.0-16.0)
[2021-04-24 20:28] LABS: SQUAMOUS EPITHELIAL CELL,UR FEW /LPF (FEW)
[2021-04-24 20:30] LABS: TRANSITIONAL EPI CELLS,URINE FEW /HPF
[2021-04-24 20:32] LABS: RBC,URINE 0-2 /HPF (0-2); WBC,URINE 0-4 /HPF (0-4)
[2021-04-24 20:39] LABS: URINE AMPHETAMINE SCREEN NEGATIVE (Neg); URINE BARBITUATE SCREEN NEGATIVE (Neg); URINE BENZODIAZEPINES SCREEN NEGATIVE (Neg); URINE CANNABINOID SCREEN POSITIVE (Neg); URINE COCAINE SCREEN NEGATIVE (Neg); URINE METHADONE SCREEN NEGATIVE (Neg); URINE OPIATE SCREEN NEGATIVE (Neg); URINE PHENCYCLIDINE SCREEN NEGATIVE (Neg)
[2021-04-24 20:46] LABS: BACTERIA,URINE NONE SEEN /HPF (Neg)
[2021-04-24 20:52] LABS: ALANINE AMINOTRANSFERASE 56 U/L (12-78); ALBUMIN 2.2 G/DL (3.4-5.0); ALBUMIN/GLOBULIN RATIO 0.6 (1.1-1.5); ALKALINE PHOSPHATASE 68 IU/L (46-116); ANION GAP 24 (8-16); ASPARTATE AMINO TRANSFERASE 148 U/L (10-37); BILIRUBIN,TOTAL 1.5 MG/DL (0.1-1.0); CALCIUM 8.8 MG/DL (8.5-10.1); CHLORIDE 89 MMOL/L (99-107); CREATININE 12.22 MG/DL (0.40-0.90); GLUCOSE 156 MG/DL (70-104); MAGNESIUM 2.5 MG/DL (1.5-2.4); SODIUM 131 MMOL/L (135-145); TOTAL CARBON DIOXIDE 18.4 MMOL/L (24-32); TOTAL PROTEIN 5.7 G/DL (6.4-8.2); eGFR 3 ML/MIN
[2021-04-24 21:02] LABS: POTASSIUM 6.5 MMOL/L (3.5-5.1)
[2021-04-24 21:45] LABS: BLOOD UREA NITROGEN 228 MG/DL (7-18); BUN/CREATININE RATIO 18.7 (6.6-38.0)
--- NOTE | 2021-04-24 23:11 | NUR ---
called nephrology. instructed to continue bicarb infusion and repeat morning cmp labs. if CO2 is over 24, may dc bicarb.
[2021-04-24 23:53] LABS: EOSINOPHILS % (AUTO) 0 % (0-6); MEAN CORPUSCULAR HEMOGLOBIN 24.5 PG (27.0-31.0); MONOCYTES # (AUTO) 0.5 X10'3 (0-0.9); NEUTROPHILS # (AUTO) 4.4 X10'3 (1.8-7.7)
[2021-04-24 23:55] LABS: BASOPHILS % (AUTO) 0.2 % (0-1); HEMATOCRIT 24.5 % (35.0-45.0); HEMOGLOBIN 7.7 g/dl (12.0-16.0); LYMPHOCYTES # (AUTO) 0.4 X10'3 (1.1-4.8); LYMPHOCYTES % (AUTO) 7.6 % (21-51); MEAN CORPUSCULAR HGB CONC 31.4 g/dL (33.0-36.5); MEAN CORPUSCULAR VOLUME 77.8 FL (78-98); MEAN PLATELET VOLUME 8.6 FL (7.4-10.4); MONOCYTES % (AUTO) 9.6 % (2-12); NEUTROPHILS % (AUTO) 82.6 % (42-75); PLATELET COUNT 135 X10'3 (140-440); RED BLOOD COUNT 3.15 X10'6 (4.20-5.60); RED CELL DISTRIBUTION WIDTH 21.9 % (11.5-14.5); WHITE BLOOD COUNT 5.3 X10'3 (4.5-11.0)
[2021-04-25] VITALS (9 sets, daily range): BP systolic 93–137; BP diastolic 52–90
[2021-04-25] MEDS ORDERED: albuterol 2.5 MG/3 ML nebule NEB PRN (00:05)
[2021-04-25] MEDS ORDERED: gabapentin 300mg capsule PO SCH ×2 (00:10→08:00)
[2021-04-25 00:53] LABS: NUCLEATED RED BLOOD CELLS 11 /100WBC (0-0); TOTAL CELLS COUNTED 100
[2021-04-25 00:54] LABS: ANISOCYTOSIS 3+; MICROCYTOSIS 1+; PLATELET ESTIMATE DECREASED; TARGET CELLS FEW
[2021-04-25 00:56] LABS: HYPOCHROMASIA 1+
[2021-04-25 00:57] LABS: BURR CELLS FEW; ELLIPTOCYTES FEW
[2021-04-25 00:58] LABS: POLYCHROMASIA 1+
--- NOTE | 2021-04-25 01:00 | NUR ---
Received pt on stretcher, transferred to bed AAOX4 pt denied any discomfort. pt oriented to room and staff, call light placed within reach. pt placed on tele, IV fluid infusing well. Berman to gravity. HOB elevated for comfort.
[2021-04-25] MEDS: sodium bicarbonate (8.4%) inj. 150 MEQ in dextrose 5%-water 1,000 ML IV SCH ×3 (03:10→19:26)
[2021-04-25] MEDS: normal saline 1000ml 1,000 ML IV SCH (05:50)
[2021-04-25] MEDS: verapamil SR 120mg (sust. release) tab PO SCH (08:00)
[2021-04-25] MEDS: aspirin 81mg tab.chew PO SCH (08:00)
[2021-04-25] MEDS ORDERED: metoprolol succinate 25mg (24-HOUR) SR. Tablet PO SCH (08:00)
[2021-04-25 08:19] LABS: HEMOGLOBIN 7.2 g/dl (12.0-16.0); LYMPHOCYTES # (AUTO) 0.9 X10'3 (1.1-4.8); MONOCYTES # (AUTO) 0.7 X10'3 (0-0.9); WHITE BLOOD COUNT 5.6 X10'3 (4.5-11.0)
[2021-04-25 08:21] LABS: BASOPHILS % (AUTO) 0.2 % (0-1); EOSINOPHILS % (AUTO) 0.2 % (0-6); HEMATOCRIT 22.2 % (35.0-45.0); LYMPHOCYTES % (AUTO) 15.4 % (21-51); MEAN CORPUSCULAR HEMOGLOBIN 24.8 PG (27.0-31.0); MEAN CORPUSCULAR HGB CONC 32.6 g/dL (33.0-36.5); MEAN CORPUSCULAR VOLUME 76.2 FL (78-98); MONOCYTES % (AUTO) 12.1 % (2-12); NEUTROPHILS % (AUTO) 72.1 % (42-75); PLATELET COUNT 128 X10'3 (140-440); RED BLOOD COUNT 2.91 X10'6 (4.20-5.60); RED CELL DISTRIBUTION WIDTH 23.1 % (11.5-14.5)
[2021-04-25] MEDS: oxybutynin 5mg tablet PO SCH (08:31)
[2021-04-25] MEDS: atorvastatin 20mg tablet PO SCH (08:31)
--- NOTE | 2021-04-25 08:34 | NUR ---
Dr. Mckeon made aware of blood pressure 101/51 Heart rate 80. States to hold verapamil and decrease metoprolol to 25mg. States to hold apirin and DC NS 100ml/hr and to just infuse Bicarb.
[2021-04-25 09:00] LABS: ALANINE AMINOTRANSFERASE 58 U/L (12-78); ALBUMIN 2.2 G/DL (3.4-5.0); ALBUMIN/GLOBULIN RATIO 0.8 (1.1-1.5); ALKALINE PHOSPHATASE 74 IU/L (46-116); ASPARTATE AMINO TRANSFERASE 167 U/L (10-37); BILIRUBIN,TOTAL 1.8 MG/DL (0.1-1.0); CALCIUM 6.9 MG/DL (8.5-10.1); CHLORIDE 88 MMOL/L (99-107); CREATININE 11.49 MG/DL (0.40-0.90); GLUCOSE 173 MG/DL (70-104); MAGNESIUM 2.3 MG/DL (1.5-2.4); SODIUM 132 MMOL/L (135-145); TOTAL PROTEIN 4.8 G/DL (6.4-8.2); eGFR 3 ML/MIN
[2021-04-25] MEDS: metoprolol succinate 25mg (24-HOUR) SR. Tablet PO SCH (09:20)
[2021-04-25 09:34] LABS: ANION GAP 22 (8-16); BLOOD UREA NITROGEN 223 MG/DL (7-18); BUN/CREATININE RATIO 19.4 (6.6-38.0)
[2021-04-25 09:35] LABS: POTASSIUM 6.1 MMOL/L (3.5-5.1); RHEUM FACTOR QUAL REFLEX TITER NEGATIVE (Neg)
--- NOTE | 2021-04-25 09:36 | NUR ---
PAGER ID: [phone] MESSAGE: [id number] Lauro Cook 6.1. Dee 9087
[2021-04-25] MEDS ORDERED: EPOETIN ALFA-EPBX 20,000 UNIT/ML 1 ML MDV IV ONE (09:40)
[2021-04-25] MEDS ORDERED: albumin (human) 25% 100ml IV 100 ML IV PRN (09:40)
[2021-04-25] MEDS ORDERED: heparin 1,000 units/ml 10ml inj HE ONE ×2 (10:00)
--- NOTE | 2021-04-25 10:20 | NUR ---
Communicated with patient and her mother, Paris, on the phone in the room. The mother states she is doing laundry at the patient's house and found blood in her underwear.
--- NOTE | 2021-04-25 10:53 | NUR ---
PAGER ID: [phone] MESSAGE: [id number] Leonardo- Mother called stating her underwear at home has blood in it. Dee [id number]
[2021-04-25] MEDS ORDERED: heparin 1,000unit/ml 10ml vial 10 ML ONE (11:23)
[2021-04-25 12:52] LABS: LYMPHOCYTES # (AUTO) 0.9 X10'3 (1.1-4.8); LYMPHOCYTES % (AUTO) 14.7 % (21-51)
[2021-04-25 12:54] LABS: BASOPHILS % (AUTO) 0.4 % (0-1); EOSINOPHILS % (AUTO) 0.1 % (0-6); HEMATOCRIT 24.1 % (35.0-45.0); HEMOGLOBIN 7.7 g/dl (12.0-16.0); MEAN CORPUSCULAR HEMOGLOBIN 24.6 PG (27.0-31.0); MEAN CORPUSCULAR HGB CONC 32.2 g/dL (33.0-36.5); MEAN CORPUSCULAR VOLUME 76.5 FL (78-98); MONOCYTES # (AUTO) 1.1 X10'3 (0-0.9); MONOCYTES % (AUTO) 18.3 % (2-12); NEUTROPHILS # (AUTO) 4.1 X10'3 (1.8-7.7); NEUTROPHILS % (AUTO) 66.5 % (42-75); PLATELET COUNT 110 X10'3 (140-440); RED BLOOD COUNT 3.14 X10'6 (4.20-5.60); RED CELL DISTRIBUTION WIDTH 22.8 % (11.5-14.5); WHITE BLOOD COUNT 6.2 X10'3 (4.5-11.0)
[2021-04-25 13:17] LABS: NUCLEATED RED BLOOD CELLS 10 /100WBC (0-0); TOTAL CELLS COUNTED 100
[2021-04-25 13:18] LABS: ANISOCYTOSIS 3+; BURR CELLS FEW; ELLIPTOCYTES FEW; HYPOCHROMASIA 2+; MICROCYTOSIS 1+; PLATELET ESTIMATE DECREASED; POLYCHROMASIA 1+; TARGET CELLS FEW
[2021-04-25 15:44] LABS: EOSINOPHILS % (AUTO) 0.1 % (0-6); LYMPHOCYTES # (AUTO) 0.8 X10'3 (1.1-4.8); NEUTROPHILS # (AUTO) 3.6 X10'3 (1.8-7.7)
[2021-04-25 15:47] LABS: BASOPHILS % (AUTO) 0.3 % (0-1); LYMPHOCYTES % (AUTO) 15.3 % (21-51); MEAN CORPUSCULAR HEMOGLOBIN 24.8 PG (27.0-31.0); MEAN CORPUSCULAR HGB CONC 32.8 g/dL (33.0-36.5); MEAN CORPUSCULAR VOLUME 75.5 FL (78-98); MEAN PLATELET VOLUME 8.2 FL (7.4-10.4); MONOCYTES # (AUTO) 0.7 X10'3 (0-0.9); MONOCYTES % (AUTO) 14.6 % (2-12); NEUTROPHILS % (AUTO) 69.7 % (42-75); PLATELET COUNT 96 X10'3 (140-440); RED BLOOD COUNT 2.56 X10'6 (4.20-5.60); RED CELL DISTRIBUTION WIDTH 22.7 % (11.5-14.5); WHITE BLOOD COUNT 5.1 X10'3 (4.5-11.0)
[2021-04-25 15:53] LABS: HEMOGLOBIN 6.3 g/dl (12.0-16.0)
[2021-04-25 15:54] LABS: HEMATOCRIT 19.3 % (35.0-45.0)
--- NOTE | 2021-04-25 15:56 | NUR ---
PAGER ID: [phone] MESSAGE: [id number] Jennifer Patterson- Antonino/Antonino 6.3 and 19.3. Dee 4498
--- NOTE | 2021-04-25 16:57 | NUR ---
PAGER ID: [phone] MESSAGE: [id number] Jennifer Patterson= H/H 6.3/19.3. Dee 7804
--- NOTE | 2021-04-25 18:00 | NUR ---
Problems reprioritized. Patient report given, questions answered & plan of care reviewed with Maribel MEJIA.
--- NOTE | 2021-04-25 18:30 | NUR ---
Pt in bed confused and restless, plan of care verbalized to pt about blood transfusion . Pt denied any discomfort.
--- NOTE | 2021-04-25 20:42 | NUR ---
Blood transfusion started as per protocol, Pt teaching done about the signs and symptoms of transfusion reaction. Pt verbalized understanding. IV fluid is on hold.
[2021-04-25 20:43] LABS: EOSINOPHILS % (AUTO) 0.2 % (0-6); HEMOGLOBIN 7.7 g/dl (12.0-16.0); MONOCYTES # (AUTO) 0.4 X10'3 (0-0.9); NEUTROPHILS # (AUTO) 5.2 X10'3 (1.8-7.7); PLATELET COUNT 127 X10'3 (140-440)
[2021-04-25 20:45] LABS: BASOPHILS % (AUTO) 0.2 % (0-1); HEMATOCRIT 24.2 % (35.0-45.0); LYMPHOCYTES # (AUTO) 0.7 X10'3 (1.1-4.8); LYMPHOCYTES % (AUTO) 11.4 % (21-51); MEAN CORPUSCULAR HEMOGLOBIN 24.2 PG (27.0-31.0); MEAN CORPUSCULAR HGB CONC 31.7 g/dL (33.0-36.5); MEAN CORPUSCULAR VOLUME 76.2 FL (78-98); MEAN PLATELET VOLUME 8.7 FL (7.4-10.4); MONOCYTES % (AUTO) 6.1 % (2-12); NEUTROPHILS % (AUTO) 82.1 % (42-75); RED BLOOD COUNT 3.18 X10'6 (4.20-5.60); WHITE BLOOD COUNT 6.3 X10'3 (4.5-11.0)
--- NOTE | 2021-04-25 21:00 | NUR ---
Blood infusing well; no reaction noted.
--- NOTE | 2021-04-25 22:00 | NUR ---
Pt continues to be in stable condition.
[2021-04-25 22:51] LABS: ANISOCYTOSIS 3+; MICROCYTOSIS 1+; NUCLEATED RED BLOOD CELLS 7 /100WBC (0-0); PLATELET ESTIMATE DECREASED; TOTAL CELLS COUNTED 100
[2021-04-25 22:52] LABS: ELLIPTOCYTES FEW; HYPOCHROMASIA 1+; POLYCHROMASIA 1+; TARGET CELLS FEW
[2021-04-25 22:53] LABS: BURR CELLS FEW
--- NOTE | 2021-04-25 23:39 | NUR ---
Transfusion ended; pt tolerated it well
[2021-04-26 02:05] LABS: EOSINOPHILS % (AUTO) 0.1 % (0-6); MEAN PLATELET VOLUME 8.6 FL (7.4-10.4); NEUTROPHILS # (AUTO) 8.1 X10'3 (1.8-7.7)
[2021-04-26 02:07] LABS: BASOPHILS % (AUTO) 0.1 % (0-1); HEMATOCRIT 25.8 % (35.0-45.0); HEMOGLOBIN 8.5 g/dl (12.0-16.0); LYMPHOCYTES # (AUTO) 0.9 X10'3 (1.1-4.8); LYMPHOCYTES % (AUTO) 8.1 % (21-51); MEAN CORPUSCULAR HEMOGLOBIN 25.5 PG (27.0-31.0); MEAN CORPUSCULAR VOLUME 77.2 FL (78-98); MONOCYTES # (AUTO) 1.7 X10'3 (0-0.9); MONOCYTES % (AUTO) 15.7 % (2-12); PLATELET COUNT 94 X10'3 (140-440); RED BLOOD COUNT 3.35 X10'6 (4.20-5.60); RED CELL DISTRIBUTION WIDTH 22.5 % (11.5-14.5); WHITE BLOOD COUNT 10.7 X10'3 (4.5-11.0)
[2021-04-26 04:22] VITALS: BP 117/61
[2021-04-26] MEDS: sodium bicarbonate (8.4%) inj. 150 MEQ in dextrose 5%-water 1,000 ML IV SCH (04:38)
[2021-04-26 06:00] VITALS: BP 132/76
[2021-04-26] MEDS ORDERED: albumin (human) 25% 100ml IV 100 ML IV PRN (07:35)
[2021-04-26] MEDS ORDERED: EPOETIN ALFA-EPBX 20,000 UNIT/ML 1 ML MDV IV ONE (07:35)
[2021-04-26 07:36] LABS: HEMOGLOBIN 8.8 g/dl (12.0-16.0); WHITE BLOOD COUNT 11.5 X10'3 (4.5-11.0)
[2021-04-26] MEDS ORDERED: heparin 1,000 units/ml 10ml inj HE ONE ×2 (07:40)
[2021-04-26 07:45] LABS: BASOPHILS % (AUTO) 0.3 % (0-1); EOSINOPHILS % (AUTO) 0.1 % (0-6); HEMATOCRIT 27.1 % (35.0-45.0); LYMPHOCYTES # (AUTO) 1.7 X10'3 (1.1-4.8); LYMPHOCYTES % (AUTO) 14.9 % (21-51); MEAN CORPUSCULAR HEMOGLOBIN 25.3 PG (27.0-31.0); MEAN CORPUSCULAR HGB CONC 32.4 g/dL (33.0-36.5); MEAN PLATELET VOLUME 8.9 FL (7.4-10.4); MONOCYTES # (AUTO) 1.8 X10'3 (0-0.9); MONOCYTES % (AUTO) 15.9 % (2-12); NEUTROPHILS # (AUTO) 7.9 X10'3 (1.8-7.7); NEUTROPHILS % (AUTO) 68.8 % (42-75); PLATELET COUNT 98 X10'3 (140-440); RED BLOOD COUNT 3.48 X10'6 (4.20-5.60); RED CELL DISTRIBUTION WIDTH 22.1 % (11.5-14.5)
[2021-04-26] MEDS ORDERED: metoprolol succinate 25mg (24-HOUR) SR. Tablet PO SCH (08:00)
[2021-04-26] MEDS: verapamil SR 120mg (sust. release) tab PO SCH (08:00)
[2021-04-26] MEDS: aspirin 81mg tab.chew PO SCH (08:00)
[2021-04-26] MEDS: metoprolol succinate 25mg (24-HOUR) SR. Tablet PO SCH (08:00)
[2021-04-26 08:17] LABS: ALANINE AMINOTRANSFERASE 63 U/L (12-78); ALBUMIN 1.9 G/DL (3.4-5.0); ALBUMIN/GLOBULIN RATIO 0.6 (1.1-1.5); ALKALINE PHOSPHATASE 87 IU/L (46-116); ANION GAP 13 (8-16); ASPARTATE AMINO TRANSFERASE 179 U/L (10-37); BILIRUBIN,TOTAL 2.5 MG/DL (0.1-1.0); BLOOD UREA NITROGEN 76 MG/DL (7-18); BUN/CREATININE RATIO 13.5 (6.6-38.0); CALCIUM 6.9 MG/DL (8.5-10.1); CHLORIDE 96 MMOL/L (99-107); CREATININE 5.62 MG/DL (0.40-0.90); GLUCOSE 114 MG/DL (70-104); MAGNESIUM 1.8 MG/DL (1.5-2.4); PHOSPHORUS 7.5 MG/DL (2.3-4.5); POTASSIUM 4.1 MMOL/L (3.5-5.1); SODIUM 138 MMOL/L (135-145); TOTAL CARBON DIOXIDE 29.2 MMOL/L (24-32); eGFR 8 ML/MIN
[2021-04-26] MEDS: oxybutynin 5mg tablet PO SCH (08:44)
[2021-04-26] MEDS: atorvastatin 20mg tablet PO SCH (08:44)
[2021-04-26 10:24] LABS: ANISOCYTOSIS 3+; HYPOCHROMASIA 1+; MICROCYTOSIS 1+; PLATELET ESTIMATE DECREASED; TOTAL CELLS COUNTED 100
[2021-04-26 10:25] LABS: NUCLEATED RED BLOOD CELLS 1 /100WBC (0-0); POLYCHROMASIA 1+
[2021-04-26 11:00] VITALS: BP 132/72
[2021-04-26 11:16] LABS: A/G RATIO 0.9 (0.7-1.7); ALBUMIN 2.4 g/dL (2.9-4.4); ANTINUCLEAR ANTIBODIES Negative (Negative); BETA GLOBULIN 0.9 g/dL (0.7-1.3); GLOBULIN, TOTAL 2.8 g/dL (2.2-3.9); M-SPIKE Not Observed g/dL (Not Observed); PROTEIN, TOTAL, SERUM 5.2 g/dL (6.0-8.5)
[2021-04-26 15:00] VITALS: BP 150/77
--- NOTE | 2021-04-26 16:03 | NUR ---
Nutrition consult: Pt presented with c/o BLE weakness and admit for acute renal failure/CKD with hyperkalemia and hyponatremia. Pt s/p TDC placement and started on dialysis per EMR. Pt currently on a mechanical soft heart healthy diet and eating poorly, documented to be refusing meals with the exception of 25% PO intake of protein with lunch and dinner 04/25. Attempted visit with pt at bedside however pt sleeping. RD contact information left at bedside. Recommend Nepro TID to assist with meeting estimated nutrient needs, to be sent pending physician approval in EMR. LBM 04/25, first documented BM since admit. Will continue to follow closely. Recommendations: 1) Liberalize to regular diet if PO intake does not improve 2) Nepro TIDWM, pending physician approval in EMR 3) Monitor need for Phos binder per MD discretion 4) Routine bowel care 5) Scaled weight this admit; subsequent scaled weights with dialysis Addendum: 04/26/21 at [address] Amended: Links added.
[2021-04-26 18:00] VITALS: BP 146/67
--- NOTE | 2021-04-26 18:16 | NUR ---
Problems reprioritized. Patient report given, questions answered & plan of care reviewed with Asmita RN.
[2021-04-26] MEDS: gabapentin 100mg capsule PO SCH (20:33)
[2021-04-26 22:00] VITALS: BP 142/70
[2021-04-27 02:00] VITALS: BP 119/55
[2021-04-27 06:00] VITALS: BP 133/74
[2021-04-27 07:36] LABS: MEAN PLATELET VOLUME 9.3 FL (7.4-10.4); MONOCYTES # (AUTO) 2.2 X10'3 (0-0.9)
[2021-04-27 07:41] LABS: BASOPHILS % (AUTO) 0.4 % (0-1); EOSINOPHILS % (AUTO) 0.3 % (0-6); LYMPHOCYTES # (AUTO) 1.3 X10'3 (1.1-4.8); LYMPHOCYTES % (AUTO) 10.9 % (21-51); MEAN CORPUSCULAR HEMOGLOBIN 25.5 PG (27.0-31.0); MEAN CORPUSCULAR HGB CONC 32.1 g/dL (33.0-36.5); MEAN CORPUSCULAR VOLUME 79.4 FL (78-98); MONOCYTES % (AUTO) 18.8 % (2-12); NEUTROPHILS # (AUTO) 8.2 X10'3 (1.8-7.7); NEUTROPHILS % (AUTO) 69.6 % (42-75); PLATELET COUNT 84 X10'3 (140-440); RED BLOOD COUNT 3.53 X10'6 (4.20-5.60); RED CELL DISTRIBUTION WIDTH 22.4 % (11.5-14.5); WHITE BLOOD COUNT 11.7 X10'3 (4.5-11.0)
[2021-04-27 08:00] LABS: ALANINE AMINOTRANSFERASE 59 U/L (12-78); ALBUMIN 1.9 G/DL (3.4-5.0); ALBUMIN/GLOBULIN RATIO 0.7 (1.1-1.5); ALKALINE PHOSPHATASE 90 IU/L (46-116); ANION GAP 11 (8-16); ASPARTATE AMINO TRANSFERASE 167 U/L (10-37); BILIRUBIN,TOTAL 3.3 MG/DL (0.1-1.0); BLOOD UREA NITROGEN 40 MG/DL (7-18); BUN/CREATININE RATIO 10.6 (6.6-38.0); CALCIUM 7.2 MG/DL (8.5-10.1); CHLORIDE 100 MMOL/L (99-107); CREATININE 3.76 MG/DL (0.40-0.90); GLUCOSE 80 MG/DL (70-104); MAGNESIUM 1.7 MG/DL (1.5-2.4); PHOSPHORUS 5.4 MG/DL (2.3-4.5); POTASSIUM 3.3 MMOL/L (3.5-5.1); SODIUM 138 MMOL/L (135-145); TOTAL CARBON DIOXIDE 26.9 MMOL/L (24-32); TOTAL PROTEIN 4.7 G/DL (6.4-8.2); eGFR 12 ML/MIN
[2021-04-27] MEDS: aspirin 81mg tab.chew PO SCH (08:00)
[2021-04-27 08:12] LABS: TOTAL CELLS COUNTED 100
[2021-04-27 08:13] LABS: ANISOCYTOSIS 3+; MICROCYTOSIS 1+; PLATELET ESTIMATE DECREASED; POLYCHROMASIA FEW; STOMATOCYTES 1+
[2021-04-27] MEDS: metoprolol succinate 25mg (24-HOUR) SR. Tablet PO SCH (08:13)
[2021-04-27] MEDS: oxybutynin 5mg tablet PO SCH (08:13)
[2021-04-27] MEDS: atorvastatin 20mg tablet PO SCH (08:13)
--- NOTE | 2021-04-27 10:30 | NUR ---
Verapamil on hold for clarification from physician. Waiting for call back. Medication has been on hold for decreased BP.
[2021-04-27 11:00] VITALS: BP 140/66
[2021-04-27 15:00] VITALS: BP 123/60
[2021-04-27 18:00] VITALS: BP 133/74
--- NOTE | 2021-04-27 18:15 | NUR ---
Problems reprioritized. Patient report given, questions answered & plan of care reviewed with Cordelia MEJIA.
[2021-04-27 20:20] LABS: HBSAG SCREEN Negative (Negative)
[2021-04-27] MEDS: gabapentin 100mg capsule PO SCH (20:25)
[2021-04-27 22:00] VITALS: BP 131/70
[2021-04-28] VITALS (8 sets, daily range): BP systolic 103–127; BP diastolic 51–68
[2021-04-28] MEDS: diltiazem SR 60mg capsule (twice daily) PO SCH ×3 (05:13→20:02)
--- NOTE | 2021-04-28 06:54 | NUR ---
Patient in room PCU 3013A. I have received report from ROBERTO ROBISON and had the opportunity to ask questions and assume patient care.
[2021-04-28 07:11] LABS: ALANINE AMINOTRANSFERASE 63 U/L (12-78); ALBUMIN 1.9 G/DL (3.4-5.0); ALBUMIN/GLOBULIN RATIO 0.6 (1.1-1.5); ALKALINE PHOSPHATASE 115 IU/L (46-116); ANION GAP 15 (8-16); ASPARTATE AMINO TRANSFERASE 185 U/L (10-37); BILIRUBIN,TOTAL 3.9 MG/DL (0.1-1.0); BLOOD UREA NITROGEN 48 MG/DL (7-18); BUN/CREATININE RATIO 10.8 (6.6-38.0); CALCIUM 7.4 MG/DL (8.5-10.1); CHLORIDE 97 MMOL/L (99-107); CREATININE 4.46 MG/DL (0.40-0.90); GLUCOSE 61 MG/DL (70-104); MAGNESIUM 1.6 MG/DL (1.5-2.4); PHOSPHORUS 5.6 MG/DL (2.3-4.5); SODIUM 135 MMOL/L (135-145); TOTAL PROTEIN 4.9 G/DL (6.4-8.2); eGFR 10 ML/MIN
[2021-04-28 07:12] LABS: POTASSIUM 3.4 MMOL/L (3.5-5.1)
--- NOTE | 2021-04-28 07:56 | NUR ---
PAGED DR ABOUT HEART RATE 120-140'S. AWAITING CALL BACK. CHECKED ON PATIENT. PATIENT SITTING ON SIDE OF BED EATING BREAKFAST, NO CURRENT SYMPTOMS
[2021-04-28] MEDS: NUT.TX.IMP.RENAL FXN,LAC-REDUC (Nepro) 237 ML VANILLA PO SCH ×3 (08:00→18:00)
[2021-04-28] MEDS: metoprolol succinate 25mg (24-HOUR) SR. Tablet PO SCH (08:04)
[2021-04-28] MEDS: atorvastatin 20mg tablet PO SCH (08:05)
[2021-04-28] MEDS: oxybutynin 5mg tablet PO SCH (08:05)
[2021-04-28 09:15] LABS: BASOPHILS # (AUTO) 0.1 X10'3 (0-0.2); HEMOGLOBIN 9.4 g/dl (12.0-16.0); MEAN CORPUSCULAR HGB CONC 31.5 g/dL (33.0-36.5); NEUTROPHILS # (AUTO) 8.7 X10'3 (1.8-7.7); RED BLOOD COUNT 3.71 X10'6 (4.20-5.60)
[2021-04-28 09:16] LABS: BASOPHILS % (AUTO) 0.4 % (0-1); EOSINOPHILS % (AUTO) 0.1 % (0-6); LYMPHOCYTES # (AUTO) 1.7 X10'3 (1.1-4.8); LYMPHOCYTES % (AUTO) 13.6 % (21-51); MEAN CORPUSCULAR HEMOGLOBIN 25.4 PG (27.0-31.0); MEAN CORPUSCULAR VOLUME 80.7 FL (78-98); MEAN PLATELET VOLUME 9.4 FL (7.4-10.4); MONOCYTES % (AUTO) 15.7 % (2-12); NEUTROPHILS % (AUTO) 70.2 % (42-75); PLATELET COUNT 89 X10'3 (140-440); RED CELL DISTRIBUTION WIDTH 22.3 % (11.5-14.5); WHITE BLOOD COUNT 12.4 X10'3 (4.5-11.0)
[2021-04-28 09:48] LABS: ANISOCYTOSIS 3+; ELLIPTOCYTES FEW; HYPOCHROMASIA 1+; PLATELET ESTIMATE DECREASED; POLYCHROMASIA FEW; STOMATOCYTES 1+; TEAR DROP CELLS FEW; TOTAL CELLS COUNTED 100
[2021-04-28] MEDS ORDERED: heparin 10,000 units/1 ML INJ IV ONE (13:55)
[2021-04-28 14:36] LABS: BASOPHILS % (AUTO) 0.4 % (0-1); EOSINOPHILS % (AUTO) 0.3 % (0-6); HEMATOCRIT 30.1 % (35.0-45.0); HEMOGLOBIN 9.7 g/dl (12.0-16.0); LYMPHOCYTES # (AUTO) 1.2 X10'3 (1.1-4.8); LYMPHOCYTES % (AUTO) 12.1 % (21-51); MEAN CORPUSCULAR HEMOGLOBIN 25.8 PG (27.0-31.0); MEAN CORPUSCULAR HGB CONC 32.2 g/dL (33.0-36.5); MEAN CORPUSCULAR VOLUME 80.1 FL (78-98); MEAN PLATELET VOLUME 8.8 FL (7.4-10.4); MONOCYTES # (AUTO) 1.4 X10'3 (0-0.9); MONOCYTES % (AUTO) 13.9 % (2-12); NEUTROPHILS # (AUTO) 7.3 X10'3 (1.8-7.7); NEUTROPHILS % (AUTO) 73.3 % (42-75); PLATELET COUNT 78 X10'3 (140-440); RED BLOOD COUNT 3.75 X10'6 (4.20-5.60); RED CELL DISTRIBUTION WIDTH 22.6 % (11.5-14.5); WHITE BLOOD COUNT 9.9 X10'3 (4.5-11.0)
[2021-04-28 14:44] LABS: APTT 31 SECONDS (22-32)
[2021-04-28] MEDS: heparin 25,000 UNIT/250ml bag 250 ML IV SCH (15:00)
--- NOTE | 2021-04-28 19:21 | NUR ---
Problems reprioritized. Patient report given, questions answered & plan of care reviewed with ROBERTO JOHNSON.
[2021-04-28] MEDS: gabapentin 100mg capsule PO SCH (20:02)
--- NOTE | 2021-04-28 23:30 | NUR ---
aptt 139. heparin held per protocol. will continue to monitor.
[2021-04-29] MEDS: heparin 25,000 UNIT/250ml bag 250 ML IV SCH (01:35)
--- NOTE | 2021-04-29 01:36 | NUR ---
heparin restarted @ 0130. next aptt is for 0330. will continue to monitor.
[2021-04-29 02:00] VITALS: BP 109/83
[2021-04-29 06:00] VITALS: BP 99/58
[2021-04-29 07:14] LABS: BASOPHILS % (AUTO) 0.4 % (0-1); LYMPHOCYTES # (AUTO) 1.4 X10'3 (1.1-4.8); WHITE BLOOD COUNT 10.9 X10'3 (4.5-11.0)
[2021-04-29 07:17] LABS: EOSINOPHILS % (AUTO) 0.2 % (0-6); HEMATOCRIT 25.5 % (35.0-45.0); HEMOGLOBIN 8.4 g/dl (12.0-16.0); MEAN CORPUSCULAR HEMOGLOBIN 25.8 PG (27.0-31.0); MEAN CORPUSCULAR VOLUME 78.2 FL (78-98); MEAN PLATELET VOLUME 9.6 FL (7.4-10.4); MONOCYTES # (AUTO) 1.6 X10'3 (0-0.9); NEUTROPHILS # (AUTO) 7.8 X10'3 (1.8-7.7); NEUTROPHILS % (AUTO) 71.4 % (42-75); PLATELET COUNT 74 X10'3 (140-440); RED BLOOD COUNT 3.26 X10'6 (4.20-5.60); RED CELL DISTRIBUTION WIDTH 23.1 % (11.5-14.5)
[2021-04-29 07:58] LABS: ALANINE AMINOTRANSFERASE 71 U/L (12-78); ALBUMIN 1.7 G/DL (3.4-5.0); ALBUMIN/GLOBULIN RATIO 0.6 (1.1-1.5); ALKALINE PHOSPHATASE 217 IU/L (46-116); ANION GAP 11 (8-16); ASPARTATE AMINO TRANSFERASE 209 U/L (10-37); BILIRUBIN,TOTAL 3.1 MG/DL (0.1-1.0); BLOOD UREA NITROGEN 55 MG/DL (7-18); BUN/CREATININE RATIO 10.7 (6.6-38.0); CHLORIDE 90 MMOL/L (99-107); CREATININE 5.13 MG/DL (0.40-0.90); GLUCOSE 112 MG/DL (70-104); MAGNESIUM 1.3 MG/DL (1.5-2.4); PHOSPHORUS 4.5 MG/DL (2.3-4.5); SODIUM 127 MMOL/L (135-145); TOTAL CARBON DIOXIDE 25.6 MMOL/L (24-32); TOTAL PROTEIN 4.6 G/DL (6.4-8.2); eGFR 9 ML/MIN
[2021-04-29] MEDS: NUT.TX.IMP.RENAL FXN,LAC-REDUC (Nepro) 237 ML VANILLA PO SCH ×3 (08:00→17:35)
[2021-04-29 08:03] LABS: ANISOCYTOSIS 3+; MICROCYTOSIS 1+; PLATELET ESTIMATE DECREASED; TOTAL CELLS COUNTED 100
[2021-04-29 08:05] LABS: ELLIPTOCYTES FEW; SCHISTOCYTES FEW
[2021-04-29 08:18] LABS: POTASSIUM 2.9 MMOL/L (3.5-5.1)
[2021-04-29] MEDS ORDERED: EPOETIN ALFA-EPBX 20,000 UNIT/ML 1 ML MDV IV ONE (08:40)
[2021-04-29] MEDS ORDERED: albumin (human) 25% 100ml IV 100 ML IV PRN (08:40)
[2021-04-29] MEDS ORDERED: heparin 1,000 units/ml 10ml inj HE ONE ×2 (08:45)
[2021-04-29] MEDS: atorvastatin 20mg tablet PO SCH (08:52)
[2021-04-29] MEDS: diltiazem SR 60mg capsule (twice daily) PO SCH ×2 (08:52→20:09)
[2021-04-29] MEDS: oxybutynin 5mg tablet PO SCH (08:53)
[2021-04-29] MEDS: metoprolol succinate 25mg (24-HOUR) SR. Tablet PO SCH (08:53)
[2021-04-29] MEDS: heparin 10,000 units/1 ML INJ IV PRN ×2 (09:03→17:34)
[2021-04-29] MEDS ORDERED: magnesium 4gm in 100ml NS 100 ML IV PRN (09:05)
[2021-04-29] MEDS ORDERED: potassium Cl 20 mEq SR tablet PO PRN (09:05)
[2021-04-29] MEDS ORDERED: potassium Cl 40MEQ/1/2NS 520ml 520 ML IV PRN (09:05)
[2021-04-29] MEDS ORDERED: potassium CL 10mEq/100ml bag 100 ML IV PRN (09:10)
--- NOTE | 2021-04-29 10:45 | NUR ---
Reassessment: Pt currently on MM5/heart healthy/renal diet and eating poorly, documented to be refusing meals with the exception of ~25% consumption of 04/28 meals and 50% ONS x 2. Pt partially meeting estimated nutrient needs. Recommend liberalizing to regular diet if PO intake does not improve. Pt received dialysis 04/26 w/ 1 liter output per documentation. LBM 04/28. Will continue to monitor need for additional nutrition intervention. Recommendations: 1) Liberalize to regular diet if PO intake does not improve 2) Continue Nepro TIDWM 3) Routine bowel care 4) Scaled weight this admit; subsequent scaled weights with dialysis Addendum: 04/29/21 at [address] Amended: Links added. Addendum: 04/29/21 at [address] I have reviewed assessment by internet application developer
[2021-04-29 11:00] VITALS: BP 107/60
[2021-04-29] MEDS: potassium Cl 20 mEq SR tablet PO SCH (14:09)
[2021-04-29 14:45] LABS: APTT 33 SECONDS (22-32)
[2021-04-29 15:00] VITALS: BP 106/58
[2021-04-29] MEDS: LORazepam 1 MG tablet PO PRN (16:27)
[2021-04-29 18:00] VITALS: BP 106/52
[2021-04-29] MEDS: K and/or MAG REPLACEMENT MC SCH (19:17)
[2021-04-29] MEDS: gabapentin 100mg capsule PO SCH (20:09)
[2021-04-29] MEDS: magnesium Cl slow-release 64mg tablet PO PRN (20:09)
[2021-04-30 02:00] VITALS: BP 95/52
[2021-04-30] MEDS: heparin 25,000 UNIT/250ml bag 250 ML IV SCH ×2 (04:49→12:58)
[2021-04-30 06:00] VITALS: BP 98/57
[2021-04-30] MEDS: potassium Cl 20 mEq SR tablet PO SCH (07:47)
[2021-04-30] MEDS: oxybutynin 5mg tablet PO SCH (07:47)
[2021-04-30] MEDS: atorvastatin 20mg tablet PO SCH (07:47)
[2021-04-30] MEDS: diltiazem SR 60mg capsule (twice daily) PO SCH ×2 (07:47→20:08)
[2021-04-30] MEDS: metoprolol succinate 25mg (24-HOUR) SR. Tablet PO SCH (07:48)
[2021-04-30] MEDS: K and/or MAG REPLACEMENT MC SCH ×2 (07:49→20:00)
[2021-04-30] MEDS: NUT.TX.IMP.RENAL FXN,LAC-REDUC (Nepro) 237 ML VANILLA PO SCH ×3 (08:00→18:00)
[2021-04-30 08:52] LABS: HEMOGLOBIN 8.6 g/dl (12.0-16.0); WHITE BLOOD COUNT 9.9 X10'3 (4.5-11.0)
[2021-04-30 08:55] LABS: MEAN CORPUSCULAR HEMOGLOBIN 25.6 PG (27.0-31.0); MEAN CORPUSCULAR HGB CONC 31.9 g/dL (33.0-36.5); MEAN CORPUSCULAR VOLUME 80.1 FL (78-98); PLATELET COUNT 73 X10'3 (140-440); RED BLOOD COUNT 3.37 X10'6 (4.20-5.60); RED CELL DISTRIBUTION WIDTH 22.4 % (11.5-14.5)
[2021-04-30 09:01] LABS: ALANINE AMINOTRANSFERASE 70 U/L (12-78); ALBUMIN 1.5 G/DL (3.4-5.0); ALBUMIN/GLOBULIN RATIO 0.5 (1.1-1.5); ANION GAP 8 (8-16); ASPARTATE AMINO TRANSFERASE 168 U/L (10-37); BILIRUBIN,TOTAL 2.2 MG/DL (0.1-1.0); BLOOD UREA NITROGEN 31 MG/DL (7-18); BUN/CREATININE RATIO 9.3 (6.6-38.0); CHLORIDE 99 MMOL/L (99-107); CREATININE 3.32 MG/DL (0.40-0.90); GLUCOSE 96 MG/DL (70-104); MAGNESIUM 1.4 MG/DL (1.5-2.4); POTASSIUM 3.5 MMOL/L (3.5-5.1); SODIUM 133 MMOL/L (135-145); TOTAL CARBON DIOXIDE 25.9 MMOL/L (24-32); TOTAL PROTEIN 4.4 G/DL (6.4-8.2); eGFR 14 ML/MIN
[2021-04-30 09:02] LABS: PHOSPHORUS 3.3 MG/DL (2.3-4.5)
[2021-04-30 11:00] VITALS: BP 109/70
[2021-04-30 11:29] LABS: ANISOCYTOSIS 3+; GIANT PLATELET FEW; LARGE PLATELETS FEW; MICROCYTOSIS 1+; PLATELET ESTIMATE DECREASED; POIKILOCYTOSIS 1+; TOTAL CELLS COUNTED 100; TOXIC GRANULATION 1+; TOXIC VACUOLATION 3+
[2021-04-30 11:30] LABS: POLYCHROMASIA 1+
[2021-04-30 11:40] LABS: ELLIPTOCYTES FEW; STOMATOCYTES 1+
[2021-04-30 11:41] LABS: HYPOCHROMASIA 1+
[2021-04-30 15:00] VITALS: BP 105/66
--- NOTE | 2021-04-30 18:59 | NUR ---
Patient in room PCU 3012. I have received report from ROBERTO Chan and had the opportunity to ask questions and assume patient care.
[2021-04-30 19:47] VITALS: BP 113/53
--- NOTE | 2021-04-30 19:47 | NUR ---
I received report and was told that the heparin drip was running at 5ML/hr, and has been therapeutic. When I rounded on the patient the pump was set to 5mL/hr, but the eMar shows that it has been at 7mL/hr. Charge nurse and I looked into this the 5mL/hr is correct, it was just not changed correctly previously. Charge nurse Agnes and I changed it from 7 to 5 mL/hr in the eMar.
[2021-04-30] MEDS: gabapentin 100mg capsule PO SCH (20:08)
[2021-04-30 23:24] VITALS: BP 105/50
[2021-05-01 02:00] VITALS: BP 96/62
[2021-05-01 03:42] LABS: HEMOGLOBIN 9.7 g/dl (12.0-16.0); MEAN CORPUSCULAR HEMOGLOBIN 25.8 PG (27.0-31.0); MEAN CORPUSCULAR HGB CONC 32.1 g/dL (33.0-36.5); MEAN CORPUSCULAR VOLUME 80.2 FL (78-98); MEAN PLATELET VOLUME 10.2 FL (7.4-10.4); PLATELET COUNT 89 X10'3 (140-440); RED BLOOD COUNT 3.74 X10'6 (4.20-5.60); RED CELL DISTRIBUTION WIDTH 22.9 % (11.5-14.5); WHITE BLOOD COUNT 10.5 X10'3 (4.5-11.0)
[2021-05-01] MEDS: heparin 10,000 units/1 ML INJ IV PRN ×2 (04:12→16:58)
[2021-05-01 05:05] LABS: ANISOCYTOSIS 3+; PLATELET ESTIMATE DECREASED; TOTAL CELLS COUNTED 100
[2021-05-01 05:06] LABS: ELLIPTOCYTES FEW; POIKILOCYTOSIS FEW; POLYCHROMASIA FEW; TEAR DROP CELLS FEW
[2021-05-01 05:07] LABS: HYPOCHROMASIA 1+; TOXIC GRANULATION 2+; TOXIC VACUOLATION FEW
[2021-05-01 05:08] LABS: LARGE PLATELETS FEW
[2021-05-01 06:00] VITALS: BP 125/76
[2021-05-01 06:14] LABS: ALBUMIN, UR 16.4 % (.); ALPHA-1-GLOBULIN,UR 7.5 % (.); ALPHA-2-GLOBULIN,UR 30.3 % (.); BETA GLOBULIN, UR 29.9 % (.); GAMMA GLOBULIN,UR 15.9 % (.); PROTEIN,TOTAL,URINE 158.8 mg/dL (Not Estab.)
--- NOTE | 2021-05-01 06:34 | NUR ---
Problems reprioritized. Patient report given, questions answered & plan of care reviewed with ROBERTO Flores.
[2021-05-01] MEDS: K and/or MAG REPLACEMENT MC SCH ×2 (08:00→20:00)
[2021-05-01] MEDS: metoprolol succinate 25mg (24-HOUR) SR. Tablet PO SCH (08:51)
[2021-05-01] MEDS: atorvastatin 20mg tablet PO SCH (08:51)
[2021-05-01] MEDS: oxybutynin 5mg tablet PO SCH (08:53)
[2021-05-01] MEDS: potassium Cl 20 mEq SR tablet PO SCH (08:53)
[2021-05-01] MEDS: diltiazem SR 60mg capsule (twice daily) PO SCH ×2 (08:53→20:45)
[2021-05-01 11:00] VITALS: BP 111/64
[2021-05-01 11:16] LABS: ALANINE AMINOTRANSFERASE 84 U/L (12-78); ALBUMIN 1.5 G/DL (3.4-5.0); ALBUMIN/GLOBULIN RATIO 0.5 (1.1-1.5); ANION GAP 8 (8-16); ASPARTATE AMINO TRANSFERASE 178 U/L (10-37); BILIRUBIN,TOTAL 1.8 MG/DL (0.1-1.0); BLOOD UREA NITROGEN 40 MG/DL (7-18); BUN/CREATININE RATIO 10.2 (6.6-38.0); CALCIUM 6.9 MG/DL (8.5-10.1); CHLORIDE 98 MMOL/L (99-107); CREATININE 3.93 MG/DL (0.40-0.90); GLUCOSE 111 MG/DL (70-104); MAGNESIUM 1.4 MG/DL (1.5-2.4); PHOSPHORUS 3.9 MG/DL (2.3-4.5); POTASSIUM 3.2 MMOL/L (3.5-5.1); SODIUM 131 MMOL/L (135-145); TOTAL PROTEIN 4.7 G/DL (6.4-8.2); eGFR 12 ML/MIN
[2021-05-01] MEDS: ondansetron/PF 4mg/2ml inj IV PRN ×2 (11:21→23:06)
[2021-05-01] MEDS: NUT.TX.IMP.RENAL FXN,LAC-REDUC (Nepro) 237 ML VANILLA PO SCH ×3 (11:22→18:00)
[2021-05-01 12:41] LABS: HEP B CORE AB, TOT Negative (Negative)
[2021-05-01] MEDS: magnesium Cl slow-release 64mg tablet PO PRN (12:59)
[2021-05-01] MEDS: LORazepam 1 MG tablet PO PRN ×2 (16:20→22:27)
--- NOTE | 2021-05-01 16:25 | NUR ---
Provided with PO Ativan for c/o anxiety
[2021-05-01 18:00] VITALS: BP 106/57
[2021-05-01] MEDS: heparin 25,000 UNIT/250ml bag 250 ML IV SCH (18:00)
[2021-05-01] MEDS: potassium Cl 20 mEq SR tablet PO PRN ×2 (18:21→22:27)
--- NOTE | 2021-05-01 18:25 | NUR ---
Patient in room PCU 3012. I have received report from ROBERTO Travis, and had the opportunity to ask questions and assume patient care. Heparin infusion in progress at 800units/hr/8cc/hr, next PTT due at 2221.
[2021-05-01] MEDS: gabapentin 100mg capsule PO SCH (20:45)
[2021-05-01 22:00] VITALS: BP 110/57
--- NOTE | 2021-05-02 00:20 | NUR ---
Heparin on hold, PTT >130. Will restart infusion in 120mins, per protocol.
[2021-05-02 00:23] LABS: APTT > 139 SECONDS (22-32)
--- NOTE | 2021-05-02 00:37 | NUR ---
PAGER ID: [phone] MESSAGE: RE:Leonardo Rodriguez in room 3012-B, Lab called at 0020, PTT >130, Heparin infusion on hold for 120mins,per protocol.
[2021-05-02 02:00] VITALS: BP_SYST 106; BP_SYST 115; BP_DIAS 57; BP_DIAS 60
--- NOTE | 2021-05-02 02:21 | NUR ---
Heparin restarted after 120mins, hold, rar Addendum: 05/02/21 at 0305 by Yolanda Zendejas RN Heparin restarted at 0221,after 120mins hold, rate decreased by 3units/kg/Hr, infusing at 600u/6cc/hr, PTT in 2 hrs,0421, after decreasing rate.
--- NOTE | 2021-05-02 04:56 | NUR ---
Unable to draw PTT after multiple attempts , by 2 RNsm lab informed, will draw with morning lab.
[2021-05-02] MEDS: heparin 25,000 UNIT/250ml bag 250 ML IV SCH (05:49)
[2021-05-02 06:00] VITALS: BP 115/60
--- NOTE | 2021-05-02 06:30 | NUR ---
Patient in room PCU 3012. I have received report from Yolanda MEJIA and had the opportunity to ask questions and assume patient care.
--- NOTE | 2021-05-02 06:30 | NUR ---
Patient in room PCU 3012. I have received report from ROBERTO Guerrero and had the opportunity to ask questions and assume patient care. Patient resting comfortably in bed with no concerns at this time.
--- NOTE | 2021-05-02 06:40 | NUR ---
Problems reprioritized. Patient report given, questions answered & plan of care reviewed with RN Karla from lab, reported that she is unable to draw blood for PTT, after multiple attempts, endorsed to AM RN,possibility of PICC line placement.
[2021-05-02] MEDS: K and/or MAG REPLACEMENT MC SCH ×2 (08:00→20:00)
[2021-05-02] MEDS ORDERED: heparin 1,000unit/ml 10ml vial 10 ML IV ONE (08:20)
[2021-05-02] MEDS ORDERED: normal saline 1000ml 250 ML IV PRN (08:20)
[2021-05-02] MEDS ORDERED: EPOETIN ALFA-EPBX 20,000 UNIT/ML 1 ML MDV IV ONE (08:20)
[2021-05-02] MEDS ORDERED: heparin 1,000 units/ml 10ml inj HE ONE ×2 (08:25)
[2021-05-02] MEDS: atorvastatin 20mg tablet PO SCH (08:31)
[2021-05-02] MEDS: diltiazem SR 60mg capsule (twice daily) PO SCH ×2 (08:31→20:18)
[2021-05-02] MEDS: potassium Cl 20 mEq SR tablet PO SCH (08:32)
[2021-05-02] MEDS: metoprolol succinate 25mg (24-HOUR) SR. Tablet PO SCH (08:32)
[2021-05-02] MEDS: oxybutynin 5mg tablet PO SCH (08:32)
[2021-05-02] MEDS: NUT.TX.IMP.RENAL FXN,LAC-REDUC (Nepro) 237 ML VANILLA PO SCH ×3 (08:33→18:13)
[2021-05-02] MEDS: heparin 10,000 units/1 ML INJ IV PRN (08:34)
[2021-05-02 09:09] LABS: HEMOGLOBIN 8.7 g/dl (12.0-16.0); MEAN CORPUSCULAR VOLUME 80.3 FL (78-98); PLATELET COUNT 98 X10'3 (140-440); RED CELL DISTRIBUTION WIDTH 23.5 % (11.5-14.5)
[2021-05-02 09:10] LABS: BASOPHILS # (AUTO) 0.1 X10'3 (0-0.2); BASOPHILS % (AUTO) 0.5 % (0-1); EOSINOPHILS % (AUTO) 0.1 % (0-6); HEMATOCRIT 27.1 % (35.0-45.0); LYMPHOCYTES # (AUTO) 1.1 X10'3 (1.1-4.8); LYMPHOCYTES % (AUTO) 11.2 % (21-51); MEAN CORPUSCULAR HEMOGLOBIN 25.9 PG (27.0-31.0); MEAN CORPUSCULAR HGB CONC 32.3 g/dL (33.0-36.5); MEAN PLATELET VOLUME 9.9 FL (7.4-10.4); MONOCYTES # (AUTO) 1.8 X10'3 (0-0.9); MONOCYTES % (AUTO) 17.8 % (2-12); NEUTROPHILS # (AUTO) 7.1 X10'3 (1.8-7.7); NEUTROPHILS % (AUTO) 70.4 % (42-75); RED BLOOD COUNT 3.37 X10'6 (4.20-5.60); WHITE BLOOD COUNT 10.1 X10'3 (4.5-11.0)
[2021-05-02 10:41] LABS: TOTAL CELLS COUNTED 100
[2021-05-02 10:42] LABS: HYPOCHROMASIA 1+; STOMATOCYTES 1+; TOXIC GRANULATION 1+; TOXIC VACUOLATION 1+
[2021-05-02 10:43] LABS: ELLIPTOCYTES FEW; POLYCHROMASIA 1+; SCHISTOCYTES FEW
[2021-05-02 10:44] LABS: POIKILOCYTOSIS 2+
[2021-05-02 10:45] LABS: PLATELET ESTIMATE DECREASED
[2021-05-02 11:00] VITALS: BP 101/59
--- NOTE | 2021-05-02 14:06 | NUR ---
Reassessment: PO intake appears to have improved significantly, documented with average 60% PO intake of meals with average 46% PO intake of ONS since last nutrition assessment 04/29 meeting estimated nutrient needs. Received TC from ROXANNE stating pt dislikes the flavor of current ONS though unfortunately there are no other flavors available. Per ROXANNE note pt c/o not liking current texture of food. Pt seen at bedside. Noted pt with dentures at bedside. Pt denies issues chewing or swallowing and requests regular texture of food. Noted current texture modification is NOT per ST anays and was ordered by previous RN. RD discussed available ONS flavors and the reasoning of ONS being sent. Pt agrees that she does need to continue with ONS to assist with meeting estimated nutrient needs given dialysis though wishes to decrease frequency. Pt denies food allergies or food preferences at this time. RD contact information again provided and pt encouraged to reach out if needed. D/w bedside RN recommendation to liberalize texture modification per pt preferences given pt reports of no difficultly chewing/swallowing as well as recommendation to discontinue renal diet as patient's electrolytes are low and pt receiving routine K replacement. Also d/w RN recommendation to decrease ONS frequency to once daily or BID. LBM 05/01. Will continue to follow. Recommendations: 1) Liberalize to heart healthy diet with no texture modification; electrolytes low and pt denies difficulty chewing or swallowing 2) Decrease Nepro to once daily versus BID 3) Routine bowel care 4) Scaled weight this admit; subsequent scaled weights with dialysis Addendum: 05/02/21 at [address] Amended: Links added.
[2021-05-02 15:00] VITALS: BP 116/67
--- NOTE | 2021-05-02 16:03 | NUR ---
Page Accepted Message: Room 3012B: Elizabeth Patterson: Critical PTT value: 93. Holding for 120 minutes per protocol. [place] [phone]
--- NOTE | 2021-05-02 16:38 | NUR ---
Paged hospitalist: [phone]: Pt: Leonardo: Pt requesting pain medication for a continuous generalized, aching pain. Is it possible for them to have PRN Tylenol to treat their pain? -[facility] [phone]
[2021-05-02 18:00] VITALS: BP 122/63
--- NOTE | 2021-05-02 18:16 | NUR ---
Patient in room PCU 3012. I have received report from ROBERTO Marks, and had the opportunity to ask questions and assume patient care. Heparin infusion, continues per protocol.
--- NOTE | 2021-05-02 18:16 | NUR ---
Problems reprioritized. Patient report given, questions answered & plan of care reviewed with Yolanda MEJIA.
[2021-05-02 19:20] LABS: ALANINE AMINOTRANSFERASE 93 U/L (12-78); ALBUMIN 1.6 G/DL (3.4-5.0); ALBUMIN/GLOBULIN RATIO 0.5 (1.1-1.5); ALKALINE PHOSPHATASE 158 IU/L (46-116); ANION GAP 14 (8-16); ASPARTATE AMINO TRANSFERASE 208 U/L (10-37); BILIRUBIN,TOTAL 1.5 MG/DL (0.1-1.0); BLOOD UREA NITROGEN 51 MG/DL (7-18); BUN/CREATININE RATIO 11.5 (6.6-38.0); CHLORIDE 97 MMOL/L (99-107); CREATININE 4.44 MG/DL (0.40-0.90); GLUCOSE 92 MG/DL (70-104); PHOSPHORUS 4.9 MG/DL (2.3-4.5); SODIUM 129 MMOL/L (135-145); TOTAL CARBON DIOXIDE 18.2 MMOL/L (24-32); TOTAL PROTEIN 4.6 G/DL (6.4-8.2); eGFR 10 ML/MIN
[2021-05-02 19:27] LABS: POTASSIUM 5.3 MMOL/L (3.5-5.1)
[2021-05-02] MEDS: gabapentin 100mg capsule PO SCH (20:18)
--- NOTE | 2021-05-02 20:38 | NUR ---
HD Nurse here for dialysis, draw blood for PTT, from HD catheter.
--- NOTE | 2021-05-02 21:17 | NUR ---
PAGER ID: [phone] MESSAGE, sent to Dr. White, RE: Leonardo Rodriguez in room 3012 B, PTT >139. Heparin infusion on hold , will hold for 120mins, decrease rate by 3units/kg/hour, per protocol.
[2021-05-02 22:00] VITALS: BP 91/53
--- NOTE | 2021-05-02 23:05 | NUR ---
Heparin decreased, by 3units/kg/hr-200units/hr, restarted at 2305, infusing at 3cc/hr, next PTT IN 2hrs. at 0105am.
--- NOTE | 2021-05-03 01:05 | NUR ---
Unable to draw PTT, multiple attempts failed, CN informed,
[2021-05-03 02:00] VITALS: BP 100/54
--- NOTE | 2021-05-03 02:50 | NUR ---
More attempts to draw PTT, not successful, pt states, she does not want to be stuck any more, c/o she has not slept due to dialysis, and want to be left alone, Lab called , spoke with Aj, lab will draw about 5am, as no one in the lab now to draw blood.
--- NOTE | 2021-05-03 05:15 | NUR ---
PTT drawn by Vivian from lab, and taken sent to lab.
[2021-05-03 05:32] LABS: ALBUMIN 1.4 G/DL (3.4-5.0); ANION GAP 7 (8-16); BLOOD UREA NITROGEN 24 MG/DL (7-18); BUN/CREATININE RATIO 10.4 (6.6-38.0); CALCIUM 7.2 MG/DL (8.5-10.1); CHLORIDE 103 MMOL/L (99-107); CREATININE 2.31 MG/DL (0.40-0.90); GLUCOSE 91 MG/DL (70-104); MAGNESIUM 1.5 MG/DL (1.5-2.4); PHOSPHORUS 2.7 MG/DL (2.3-4.5); POTASSIUM 4.1 MMOL/L (3.5-5.1); SODIUM 133 MMOL/L (135-145); TOTAL CARBON DIOXIDE 23.4 MMOL/L (24-32); eGFR 22 ML/MIN
[2021-05-03 05:36] LABS: HEMATOCRIT 24.3 % (35.0-45.0); HEMOGLOBIN 7.7 g/dl (12.0-16.0); MEAN CORPUSCULAR HEMOGLOBIN 25.4 PG (27.0-31.0); MEAN CORPUSCULAR HGB CONC 31.7 g/dL (33.0-36.5); MEAN CORPUSCULAR VOLUME 80.2 FL (78-98); MEAN PLATELET VOLUME 9.7 FL (7.4-10.4); PLATELET COUNT 94 X10'3 (140-440); RED BLOOD COUNT 3.03 X10'6 (4.20-5.60); RED CELL DISTRIBUTION WIDTH 23.9 % (11.5-14.5); WHITE BLOOD COUNT 10.9 X10'3 (4.5-11.0)
[2021-05-03] MEDS: heparin 10,000 units/1 ML INJ IV PRN ×2 (06:01→16:11)
[2021-05-03 06:23] LABS: ANISOCYTOSIS 3+; NUCLEATED RED BLOOD CELLS 1 /100WBC (0-0); PLATELET ESTIMATE DECREASED; TOTAL CELLS COUNTED 100
[2021-05-03 06:24] LABS: HYPOCHROMASIA 1+; SCHISTOCYTES FEW; STOMATOCYTES 1+; TARGET CELLS FEW; TOXIC GRANULATION 1+; TOXIC VACUOLATION 1+
[2021-05-03 06:25] LABS: POLYCHROMASIA 2+
--- NOTE | 2021-05-03 06:30 | NUR ---
Problems reprioritized. Patient report given, questions answered & plan of care reviewed with ROBERTO Smith, Heparin infusion continues at 500units/hr-5cc/hr, per protocol, next PTT due at 12n00m Addendum: 05/03/21 at 0658 by Yolanda Zendejas RN Next PTT due at 12NOON.
[2021-05-03] MEDS: K and/or MAG REPLACEMENT MC SCH ×2 (07:08→20:00)
[2021-05-03 07:23] VITALS: BP 108/49
[2021-05-03] MEDS: potassium Cl 20 mEq SR tablet PO SCH (10:57)
[2021-05-03] MEDS: diltiazem SR 60mg capsule (twice daily) PO SCH ×2 (10:57→20:42)
[2021-05-03] MEDS: NUT.TX.IMP.RENAL FXN,LAC-REDUC (Nepro) 237 ML VANILLA PO SCH ×3 (10:58→18:00)
[2021-05-03] MEDS: oxybutynin 5mg tablet PO SCH (10:58)
[2021-05-03] MEDS: atorvastatin 20mg tablet PO SCH (10:58)
[2021-05-03] MEDS: metoprolol succinate 25mg (24-HOUR) SR. Tablet PO SCH (10:58)
[2021-05-03 11:00] VITALS: BP 124/60
[2021-05-03 15:00] VITALS: BP 113/60
[2021-05-03 18:00] VITALS: BP 121/52
--- NOTE | 2021-05-03 18:30 | NUR ---
Pt in bed resting, denied any discomfort. heparin drips infusing well. Pt encouraged to notify staff if having any sign of bleeding.
--- NOTE | 2021-05-03 18:30 | NUR ---
Pt is getting dialysis IV fluid stops; will notified Addendum: 05/04/21 at 0700 by Maribel Zendejas RN error, wrong patient
[2021-05-03] MEDS: gabapentin 100mg capsule PO SCH (20:42)
--- NOTE | 2021-05-03 21:00 | NUR ---
Pt voiced no complaints. Heparin infusing well.
[2021-05-03 22:00] VITALS: BP 107/56
[2021-05-04 02:00] VITALS: BP 114/72
--- NOTE | 2021-05-04 04:00 | NUR ---
right Internal Jugular temporary dialysis catheter dressing change done. Steril technique used, no bleeding noted. Addendum: 05/04/21 at 0700 by Maribel Zendejas RN error, wrong patient
[2021-05-04 06:49] LABS: BASOPHILS # (AUTO) 0.1 X10'3 (0-0.2); BASOPHILS % (AUTO) 0.5 % (0-1); EOSINOPHILS % (AUTO) 0 % (0-6); HEMATOCRIT 24.6 % (35.0-45.0); HEMOGLOBIN 7.8 g/dl (12.0-16.0); LYMPHOCYTES # (AUTO) 1.3 X10'3 (1.1-4.8); LYMPHOCYTES % (AUTO) 11.2 % (21-51); MEAN CORPUSCULAR HEMOGLOBIN 25.8 PG (27.0-31.0); MEAN CORPUSCULAR HGB CONC 31.9 g/dL (33.0-36.5); MEAN CORPUSCULAR VOLUME 80.9 FL (78-98); MEAN PLATELET VOLUME 9.3 FL (7.4-10.4); MONOCYTES # (AUTO) 1.3 X10'3 (0-0.9); MONOCYTES % (AUTO) 11.4 % (2-12); NEUTROPHILS # (AUTO) 8.7 X10'3 (1.8-7.7); NEUTROPHILS % (AUTO) 76.9 % (42-75); PLATELET COUNT 113 X10'3 (140-440); RED BLOOD COUNT 3.04 X10'6 (4.20-5.60); RED CELL DISTRIBUTION WIDTH 24.1 % (11.5-14.5); WHITE BLOOD COUNT 11.3 X10'3 (4.5-11.0)
[2021-05-04 06:59] LABS: ALBUMIN 1.4 G/DL (3.4-5.0); ANION GAP 11 (8-16); BLOOD UREA NITROGEN 34 MG/DL (7-18); BUN/CREATININE RATIO 11.4 (6.6-38.0); CHLORIDE 101 MMOL/L (99-107); CREATININE 2.98 MG/DL (0.40-0.90); GLUCOSE 72 MG/DL (70-104); MAGNESIUM 1.5 MG/DL (1.5-2.4); PHOSPHORUS 3.5 MG/DL (2.3-4.5); SODIUM 134 MMOL/L (135-145); TOTAL CARBON DIOXIDE 21.7 MMOL/L (24-32); eGFR 16 ML/MIN
--- NOTE | 2021-05-04 07:16 | NUR ---
Pt has no BM, container placed at bedside for stool collection ; pt and sitter made aware.
[2021-05-04 07:38] VITALS: BP 109/60
[2021-05-04] MEDS: K and/or MAG REPLACEMENT MC SCH ×2 (08:00→20:00)
[2021-05-04] MEDS: NUT.TX.IMP.RENAL FXN,LAC-REDUC (Nepro) 237 ML VANILLA PO SCH ×2 (08:00→13:00)
[2021-05-04] MEDS: diltiazem SR 60mg capsule (twice daily) PO SCH ×2 (09:39→20:43)
[2021-05-04] MEDS: metoprolol succinate 25mg (24-HOUR) SR. Tablet PO SCH (09:41)
[2021-05-04] MEDS: atorvastatin 20mg tablet PO SCH (09:41)
[2021-05-04] MEDS: oxybutynin 5mg tablet PO SCH (09:41)
[2021-05-04] MEDS: potassium Cl 20 mEq SR tablet PO SCH (09:42)
[2021-05-04] MEDS: ondansetron/PF 4mg/2ml inj IV PRN (10:16)
[2021-05-04] MEDS ORDERED: heparin 1,000 units/ml 10ml inj HE ONE (10:50)
[2021-05-04 11:00] VITALS: BP 107/51
[2021-05-04] MEDS: heparin 25,000 UNIT/250ml bag 250 ML IV SCH (14:12)
[2021-05-04 15:00] VITALS: BP 109/60
[2021-05-04] MEDS ORDERED: heparin 1,000 units/ml 10ml inj IV ONE (16:20)
[2021-05-04 18:00] VITALS: BP 113/54
[2021-05-04] MEDS: gabapentin 100mg capsule PO SCH (20:43)
[2021-05-04] MEDS: enoxaparin 60mg/0.6ml syringe SUBCUT SCH (20:43)
[2021-05-04] MEDS: LORazepam 1 MG tablet PO PRN (20:50)
[2021-05-04 22:00] VITALS: BP 111/55
[2021-05-05 02:00] VITALS: BP 117/50
--- NOTE | 2021-05-05 02:00 | NUR ---
Pt is sleeping, no signs of any discomfort noted.
[2021-05-05 06:00] VITALS: BP 133/67
[2021-05-05 07:49] LABS: BASOPHILS # (AUTO) 0.1 X10'3 (0-0.2); HEMOGLOBIN 8.9 g/dl (12.0-16.0); PLATELET COUNT 134 X10'3 (140-440)
[2021-05-05 07:51] LABS: BASOPHILS % (AUTO) 0.4 % (0-1); EOSINOPHILS % (AUTO) 0.1 % (0-6); HEMATOCRIT 28.2 % (35.0-45.0); LYMPHOCYTES # (AUTO) 1.2 X10'3 (1.1-4.8); LYMPHOCYTES % (AUTO) 9.9 % (21-51); MEAN CORPUSCULAR HEMOGLOBIN 25.8 PG (27.0-31.0); MEAN CORPUSCULAR HGB CONC 31.4 g/dL (33.0-36.5); MEAN CORPUSCULAR VOLUME 82.2 FL (78-98); MEAN PLATELET VOLUME 9.3 FL (7.4-10.4); MONOCYTES # (AUTO) 1.3 X10'3 (0-0.9); MONOCYTES % (AUTO) 10.4 % (2-12); NEUTROPHILS # (AUTO) 9.7 X10'3 (1.8-7.7); NEUTROPHILS % (AUTO) 79.2 % (42-75); RED BLOOD COUNT 3.44 X10'6 (4.20-5.60); RED CELL DISTRIBUTION WIDTH 24.9 % (11.5-14.5); WHITE BLOOD COUNT 12.2 X10'3 (4.5-11.0)
[2021-05-05 07:53] LABS: ALBUMIN 1.5 G/DL (3.4-5.0); ANION GAP 13 (8-16); BLOOD UREA NITROGEN 40 MG/DL (7-18); BUN/CREATININE RATIO 11.9 (6.6-38.0); CALCIUM 7.2 MG/DL (8.5-10.1); CHLORIDE 101 MMOL/L (99-107); CREATININE 3.36 MG/DL (0.40-0.90); GLUCOSE 71 MG/DL (70-104); MAGNESIUM 1.6 MG/DL (1.5-2.4); POTASSIUM 4.2 MMOL/L (3.5-5.1); SODIUM 135 MMOL/L (135-145); TOTAL CARBON DIOXIDE 20.8 MMOL/L (24-32); eGFR 14 ML/MIN
[2021-05-05] MEDS: K and/or MAG REPLACEMENT MC SCH ×2 (08:00→20:00)
[2021-05-05] MEDS: NUT.TX.IMP.RENAL FXN,LAC-REDUC (Nepro) 237 ML VANILLA PO SCH ×4 (08:00→17:48)
[2021-05-05] MEDS: diltiazem SR 60mg capsule (twice daily) PO SCH ×2 (08:02→20:20)
[2021-05-05] MEDS: atorvastatin 20mg tablet PO SCH (08:02)
[2021-05-05] MEDS: potassium Cl 20 mEq SR tablet PO SCH (08:03)
[2021-05-05] MEDS: oxybutynin 5mg tablet PO SCH (08:03)
[2021-05-05] MEDS: metoprolol succinate 25mg (24-HOUR) SR. Tablet PO SCH (08:03)
[2021-05-05] MEDS: enoxaparin 60mg/0.6ml syringe SUBCUT SCH ×2 (08:04→20:20)
[2021-05-05 08:56] LABS: TOTAL CELLS COUNTED 100
[2021-05-05 08:58] LABS: ANISOCYTOSIS 3+; HYPOCHROMASIA 1+; PLATELET ESTIMATE DECREASED; POLYCHROMASIA 1+; STOMATOCYTES 1+; TEAR DROP CELLS 1+
[2021-05-05 11:00] VITALS: BP 113/96
[2021-05-05 15:00] VITALS: BP 113/51
[2021-05-05 18:00] VITALS: BP 119/52
[2021-05-05] MEDS: gabapentin 100mg capsule PO SCH (20:20)
[2021-05-05] MEDS: LORazepam 1 MG tablet PO PRN (20:20)
[2021-05-05 22:00] VITALS: BP 148/76
[2021-05-06 02:00] VITALS: BP 146/71
[2021-05-06 06:00] VITALS: BP 123/50
[2021-05-06 06:43] LABS: HEMOGLOBIN 8.4 g/dl (12.0-16.0); PLATELET COUNT 145 X10'3 (140-440); RED CELL DISTRIBUTION WIDTH 24.9 % (11.5-14.5)
[2021-05-06 06:47] LABS: BASOPHILS % (AUTO) 0 % (0-1); MEAN CORPUSCULAR HEMOGLOBIN 26.8 PG (27.0-31.0); MEAN PLATELET VOLUME 8.7 FL (7.4-10.4); RED BLOOD COUNT 3.13 X10'6 (4.20-5.60)
[2021-05-06 06:53] LABS: EOSINOPHILS % (AUTO) 0.1 % (0-6); LYMPHOCYTES % (AUTO) 14.9 % (21-51); MEAN CORPUSCULAR HGB CONC 32.2 g/dL (33.0-36.5); MEAN CORPUSCULAR VOLUME 82.6 FL (78-98); MONOCYTES % (AUTO) 12.3 % (2-12); NEUTROPHILS % (AUTO) 71.8 % (42-75); WHITE BLOOD COUNT 10.7 X10'3 (4.5-11.0)
[2021-05-06 06:54] LABS: EOSINOPHILS # (AUTO) 0.1 X10'3 (0-0.9); LYMPHOCYTES # (AUTO) 1.6 X10'3 (1.1-4.8); MONOCYTES # (AUTO) 1.3 X10'3 (0-0.9); NEUTROPHILS # (AUTO) 7.7 X10'3 (1.8-7.7)
[2021-05-06 07:13] LABS: ALBUMIN 1.4 G/DL (3.4-5.0); ANION GAP 12 (8-16); BLOOD UREA NITROGEN 48 MG/DL (7-18); CALCIUM 7.1 MG/DL (8.5-10.1); CHLORIDE 103 MMOL/L (99-107); CREATININE 3.44 MG/DL (0.40-0.90); GLUCOSE 82 MG/DL (70-104); MAGNESIUM 1.7 MG/DL (1.5-2.4); PHOSPHORUS 4.5 MG/DL (2.3-4.5); POTASSIUM 4.3 MMOL/L (3.5-5.1); SODIUM 134 MMOL/L (135-145); TOTAL CARBON DIOXIDE 19.5 MMOL/L (24-32); eGFR 14 ML/MIN
[2021-05-06] MEDS: K and/or MAG REPLACEMENT MC SCH ×2 (08:00→20:00)
[2021-05-06] MEDS: NUT.TX.IMP.RENAL FXN,LAC-REDUC (Nepro) 237 ML VANILLA PO SCH ×3 (08:00→18:00)
[2021-05-06] MEDS: metoprolol succinate 25mg (24-HOUR) SR. Tablet PO SCH (09:34)
[2021-05-06] MEDS: oxybutynin 5mg tablet PO SCH (09:34)
[2021-05-06] MEDS: diltiazem SR 60mg capsule (twice daily) PO SCH ×2 (09:35→20:11)
[2021-05-06] MEDS: atorvastatin 20mg tablet PO SCH (09:35)
[2021-05-06] MEDS: enoxaparin 60mg/0.6ml syringe SUBCUT SCH (09:43)
[2021-05-06] MEDS: potassium Cl 20 mEq SR tablet PO SCH (09:49)
[2021-05-06 10:02] LABS: ANISOCYTOSIS 3+; PLATELET ESTIMATE NORMAL
[2021-05-06 10:03] LABS: HYPOCHROMASIA 1+; SCHISTOCYTES FEW
[2021-05-06 10:04] LABS: TEAR DROP CELLS FEW
[2021-05-06 11:00] VITALS: BP 138/69
--- NOTE | 2021-05-06 11:07 | NUR ---
Reassessment: Pt PO intake currently average ~52% x 10 renal meals and average 73% PO intake of ONS since last nutrition assessment 05/02 meeting estimated nutrient needs. Pt seen at bedside by JENNY and international trade teacher and discussed pt preferences stated she would like Nepro BID versus TID. RD discussed w/ RN. Pt further noted she does not prefer many of the starchy foods offered, though she does particularly like the raspberry vinaigrette and green salads. LB 05/06. Will continue to follow. Recommendations: 1) Continue renal diet on HD; consider liberalizing to regular if off HD given labs and receiving routine potassium replacement 2) Decrease Nepro to BID versus TID per pt preference 3) Routine bowel care 4) Scaled weight this admit; subsequent scaled weights with dialysis Addendum: 05/06/21 at [address] Amended: Links added. Addendum: 05/06/21 at [address] JENNY has reviewed and approves of above note.
[2021-05-06 15:00] VITALS: BP 138/61
[2021-05-06 18:00] VITALS: BP 125/64
[2021-05-06] MEDS: LORazepam 1 MG tablet PO PRN (20:11)
[2021-05-06] MEDS: gabapentin 100mg capsule PO SCH (20:11)
[2021-05-07 02:00] VITALS: BP 138/56
[2021-05-07 06:00] VITALS: BP 131/69
[2021-05-07 07:24] LABS: ALBUMIN 1.5 G/DL (3.4-5.0); ANION GAP 14 (8-16); BLOOD UREA NITROGEN 51 MG/DL (7-18); BUN/CREATININE RATIO 15.4 (6.6-38.0); CALCIUM 7.5 MG/DL (8.5-10.1); CHLORIDE 105 MMOL/L (99-107); CREATININE 3.32 MG/DL (0.40-0.90); GLUCOSE 70 MG/DL (70-104); MAGNESIUM 1.6 MG/DL (1.5-2.4); PHOSPHORUS 4.9 MG/DL (2.3-4.5); POTASSIUM 4.5 MMOL/L (3.5-5.1); SODIUM 136 MMOL/L (135-145); eGFR 14 ML/MIN
[2021-05-07] MEDS: K and/or MAG REPLACEMENT MC SCH ×2 (08:00→20:00)
[2021-05-07] MEDS: atorvastatin 20mg tablet PO SCH (08:13)
[2021-05-07] MEDS: diltiazem SR 60mg capsule (twice daily) PO SCH ×2 (08:13→20:50)
[2021-05-07] MEDS: potassium Cl 20 mEq SR tablet PO SCH (08:14)
[2021-05-07] MEDS: oxybutynin 5mg tablet PO SCH (08:14)
[2021-05-07] MEDS: metoprolol succinate 25mg (24-HOUR) SR. Tablet PO SCH (08:14)
[2021-05-07] MEDS: enoxaparin 60mg/0.6ml syringe SUBCUT SCH (08:17)
[2021-05-07] MEDS: NUT.TX.IMP.RENAL FXN,LAC-REDUC (Nepro) 237 ML VANILLA PO SCH ×3 (08:20→20:00)
[2021-05-07 09:06] LABS: BASOPHILS # (AUTO) 0.1 X10'3 (0-0.2); BASOPHILS % (AUTO) 0.7 % (0-1); EOSINOPHILS % (AUTO) 0.3 % (0-6); HEMATOCRIT 28.2 % (35.0-45.0); LYMPHOCYTES % (AUTO) 11.1 % (21-51); MEAN CORPUSCULAR HEMOGLOBIN 26.4 PG (27.0-31.0); MEAN CORPUSCULAR HGB CONC 31.8 g/dL (33.0-36.5); MEAN CORPUSCULAR VOLUME 82.8 FL (78-98); MEAN PLATELET VOLUME 8.4 FL (7.4-10.4); MONOCYTES # (AUTO) 0.7 X10'3 (0-0.9); MONOCYTES % (AUTO) 7.9 % (2-12); NEUTROPHILS # (AUTO) 6.9 X10'3 (1.8-7.7); PLATELET COUNT 176 X10'3 (140-440); RED CELL DISTRIBUTION WIDTH 25.8 % (11.5-14.5); WHITE BLOOD COUNT 8.7 X10'3 (4.5-11.0)
[2021-05-07 11:00] VITALS: BP 129/67
[2021-05-07 15:00] VITALS: BP 130/68
[2021-05-07 18:00] VITALS: BP 137/73
[2021-05-07] MEDS: gabapentin 100mg capsule PO SCH (20:50)
[2021-05-07] MEDS: LORazepam 1 MG tablet PO PRN (20:50)
[2021-05-07 22:00] VITALS: BP 121/55
--- NOTE | 2021-05-07 22:00 | NUR ---
Pt is incontinent, night care done, wick is use. Pt reported feeling weak and would like to go to a rehab facility; pt encouraged to use her upper and lower extremities to move up in bed with assistance.
[2021-05-08] MEDS: ondansetron/PF 4mg/2ml inj IV PRN (06:10)
[2021-05-08 06:11] LABS: BASOPHILS # (AUTO) 0.1 X10'3 (0-0.2); BASOPHILS % (AUTO) 0.7 % (0-1); EOSINOPHILS % (AUTO) 0.2 % (0-6); HEMATOCRIT 27.2 % (35.0-45.0); HEMOGLOBIN 8.7 g/dl (12.0-16.0); LYMPHOCYTES # (AUTO) 1.3 X10'3 (1.1-4.8); LYMPHOCYTES % (AUTO) 13.8 % (21-51); MEAN CORPUSCULAR HEMOGLOBIN 26.7 PG (27.0-31.0); MEAN CORPUSCULAR HGB CONC 31.9 g/dL (33.0-36.5); MEAN CORPUSCULAR VOLUME 83.7 FL (78-98); MEAN PLATELET VOLUME 8.1 FL (7.4-10.4); MONOCYTES # (AUTO) 1.1 X10'3 (0-0.9); MONOCYTES % (AUTO) 11.5 % (2-12); NEUTROPHILS # (AUTO) 6.8 X10'3 (1.8-7.7); NEUTROPHILS % (AUTO) 73.8 % (42-75); PLATELET COUNT 200 X10'3 (140-440); RED BLOOD COUNT 3.25 X10'6 (4.20-5.60); RED CELL DISTRIBUTION WIDTH 25.7 % (11.5-14.5); WHITE BLOOD COUNT 9.2 X10'3 (4.5-11.0)
--- NOTE | 2021-05-08 06:13 | NUR ---
Pt reported feeling nauseous; IV medication given
[2021-05-08 06:41] LABS: ALBUMIN 1.5 G/DL (3.4-5.0); ANION GAP 17 (8-16); BLOOD UREA NITROGEN 55 MG/DL (7-18); BUN/CREATININE RATIO 17.1 (6.6-38.0); CALCIUM 7.5 MG/DL (8.5-10.1); CHLORIDE 103 MMOL/L (99-107); CREATININE 3.22 MG/DL (0.40-0.90); GLUCOSE 83 MG/DL (70-104); MAGNESIUM 1.7 MG/DL (1.5-2.4); POTASSIUM 4.7 MMOL/L (3.5-5.1); SODIUM 136 MMOL/L (135-145); TOTAL CARBON DIOXIDE 16.5 MMOL/L (24-32); eGFR 15 ML/MIN
[2021-05-08] MEDS: oxybutynin 5mg tablet PO SCH (08:10)
[2021-05-08] MEDS: atorvastatin 20mg tablet PO SCH (08:11)
[2021-05-08] MEDS: metoprolol succinate 25mg (24-HOUR) SR. Tablet PO SCH (08:12)
[2021-05-08] MEDS: potassium Cl 20 mEq SR tablet PO SCH (08:12)
[2021-05-08] MEDS: diltiazem SR 60mg capsule (twice daily) PO SCH ×2 (08:12→20:45)
[2021-05-08] MEDS: enoxaparin 60mg/0.6ml syringe SUBCUT SCH (08:14)
[2021-05-08] MEDS: NUT.TX.IMP.RENAL FXN,LAC-REDUC (Nepro) 237 ML VANILLA PO SCH ×3 (08:15→18:04)
[2021-05-08] MEDS: K and/or MAG REPLACEMENT MC SCH ×2 (08:17→20:00)
[2021-05-08 09:10] LABS: ANISOCYTOSIS 3+; PLATELET ESTIMATE NORMAL; SCHISTOCYTES FEW
[2021-05-08 09:11] LABS: HYPOCHROMASIA 1+
[2021-05-08 11:00] VITALS: BP 163/66
[2021-05-08 15:00] VITALS: BP 105/63
--- NOTE | 2021-05-08 15:13 | NUR ---
PT FEELING EXTREMELY WEAK , ACCORDING TO FAMILY PT COLOR AND ASHEN AND EYES DILATED, PT UNABLE TO PARTICIPATE IN PT THERAPY, PT STATES NO STRENGTH IN LEFT HAND. AWAITING MD ORDERS
[2021-05-08 18:00] VITALS: BP 114/57
[2021-05-08] MEDS: gabapentin 100mg capsule PO SCH (20:45)
[2021-05-08] MEDS: LORazepam 1 MG tablet PO PRN (20:45)
[2021-05-08 22:00] VITALS: BP 130/71
[2021-05-09 02:00] VITALS: BP 119/62
[2021-05-09 06:21] LABS: BASOPHILS # (AUTO) 0.1 X10'3 (0-0.2); BASOPHILS % (AUTO) 0.8 % (0-1); EOSINOPHILS % (AUTO) 0.4 % (0-6); HEMATOCRIT 28.1 % (35.0-45.0); HEMOGLOBIN 8.7 g/dl (12.0-16.0); LYMPHOCYTES # (AUTO) 1.2 X10'3 (1.1-4.8); LYMPHOCYTES % (AUTO) 12.5 % (21-51); MEAN CORPUSCULAR HEMOGLOBIN 26.7 PG (27.0-31.0); MEAN CORPUSCULAR HGB CONC 30.9 g/dL (33.0-36.5); MEAN CORPUSCULAR VOLUME 86.5 FL (78-98); MONOCYTES % (AUTO) 10.3 % (2-12); NEUTROPHILS # (AUTO) 7.3 X10'3 (1.8-7.7); PLATELET COUNT 209 X10'3 (140-440); RED BLOOD COUNT 3.24 X10'6 (4.20-5.60); RED CELL DISTRIBUTION WIDTH 26.4 % (11.5-14.5); WHITE BLOOD COUNT 9.7 X10'3 (4.5-11.0)
[2021-05-09 06:41] LABS: ALBUMIN 1.5 G/DL (3.4-5.0); ANION GAP 13 (8-16); BLOOD UREA NITROGEN 58 MG/DL (7-18); BUN/CREATININE RATIO 18.5 (6.6-38.0); CALCIUM 7.7 MG/DL (8.5-10.1); CHLORIDE 105 MMOL/L (99-107); CREATININE 3.13 MG/DL (0.40-0.90); GLUCOSE 70 MG/DL (70-104); MAGNESIUM 1.7 MG/DL (1.5-2.4); PHOSPHORUS 5.1 MG/DL (2.3-4.5); POTASSIUM 4.7 MMOL/L (3.5-5.1); SODIUM 135 MMOL/L (135-145); TOTAL CARBON DIOXIDE 16.6 MMOL/L (24-32); eGFR 15 ML/MIN
[2021-05-09] MEDS: K and/or MAG REPLACEMENT MC SCH (08:00)
[2021-05-09] MEDS: oxybutynin 5mg tablet PO SCH (08:39)
[2021-05-09] MEDS: potassium Cl 20 mEq SR tablet PO SCH (08:39)
[2021-05-09] MEDS: diltiazem SR 60mg capsule (twice daily) PO SCH (08:39)
[2021-05-09] MEDS: metoprolol succinate 25mg (24-HOUR) SR. Tablet PO SCH (08:39)
[2021-05-09] MEDS: atorvastatin 20mg tablet PO SCH (08:39)
[2021-05-09] MEDS: enoxaparin 60mg/0.6ml syringe SUBCUT SCH (08:40)
== END 2021-05-09 15:15 | DRG 377 ==
LOC: ER 12:21 → ED HOLD 19:52 → PCU 3S 04-25 00:02
PROVIDERS: ADMIT Internal Medicine; ATTEND Family Medicine
PROC: 30233N1 Transfusion of Nonautologous Red Blood Cells into Peripheral Vein, Percutaneous Approach (ICD-10-PCS; principal; 2021-04-24)
PROC: 02HV33Z Insertion of Infusion Device into Superior Vena Cava, Percutaneous Approach (ICD-10-PCS; 2021-04-25)
PROC: B548ZZA Ultrasonography of Superior Vena Cava, Guidance (ICD-10-PCS; 2021-04-25)
PROC: B5181ZA Fluoroscopy of Superior Vena Cava using Low Osmolar Contrast, Guidance (ICD-10-PCS; 2021-04-25)
PROC: 5A1D70Z Performance of Urinary Filtration, Intermittent, Less than 6 Hours Per Day (ICD-10-PCS; 2021-04-25)
PROC: 5A1D70Z Performance of Urinary Filtration, Intermittent, Less than 6 Hours Per Day (ICD-10-PCS; 2021-04-26)
PROC: 5A1D70Z Performance of Urinary Filtration, Intermittent, Less than 6 Hours Per Day (ICD-10-PCS; 2021-04-29)
PROC: 5A1D70Z Performance of Urinary Filtration, Intermittent, Less than 6 Hours Per Day (ICD-10-PCS; 2021-05-02)
DX: K92.1 Melena (principal); N17.0 Acute kidney failure with tubular necrosis; D62 Acute posthemorrhagic anemia; I13.0 Hypertensive heart and chronic kidney disease with heart failure and stage 1 through stage 4 chronic kidney disease, or unspecified chronic kidney disease; I50.32 Chronic diastolic (congestive) heart failure; E87.1 Hypo-osmolality and hyponatremia; E87.2 Acidosis; E86.0 Dehydration; Z20.822 Contact with and (suspected) exposure to COVID-19; D69.1 Qualitative platelet defects; E78.5 Hyperlipidemia, unspecified; E87.5 Hyperkalemia; M79.604 Pain in right leg; M79.605 Pain in left leg; Z60.2 Problems related to living alone; R26.2 Difficulty in walking, not elsewhere classified; E87.6 Hypokalemia; G62.9 Polyneuropathy, unspecified; I25.10 Atherosclerotic heart disease of native coronary artery without angina pectoris; I48.91 Unspecified atrial fibrillation; J44.9 Chronic obstructive pulmonary disease, unspecified; K76.9 Liver disease, unspecified; N18.9 Chronic kidney disease, unspecified; Z79.01 Long term (current) use of anticoagulants; Z95.1 Presence of aortocoronary bypass graft; Z88.7 Allergy status to serum and vaccine; Z88.8 Allergy status to other drugs, medicaments and biological substances; Z79.899 Other long term (current) drug therapy; Z91.19 Patient's noncompliance with other medical treatment and regimen
CPT/HCPCS: 36415; 36430; 36556; 36600; 71045; 80048; 80053; 80305; 80320; 81001; 82140; 82803; 82948; 83735; 84100; 84155; 84156; 84165; 84166; 85007; 85008; 85018; 85025; 85610; 85730; 86038; 86430; 86592; 86704; 86706; 86885; 86900; 86901; 86920; 87081; 87340; 87635; 93005; 93306; 94640; 94760; 96361; 96374; 96375; 97116; 97161; 97530; 97535; 99291; A7015; A9270; C1751; C1769; C1894; G0257; G0378; J1644; J1650; J1815; J2150; J2405; J2597; J3490; J7030; J7070; P9016; Q4081

== ENCOUNTER 2021-05-13 18:27 | Inpatient (IN) | payer MEDICARE, MEDICAID ==
[~2021-05-13] VITALS: Ht 157.5 cm; Wt 84.5 kg
[~2021-05-13 18:27] MED LIST changes: +ALBU17AE26 PO; -ALBU8.5H17 INH; +ASPI-1265 PO; -ASPI-611 PO; -CEFD300C3 PO; +EZET10TA48 PO; -EZET10TA6 PO; +FENO160T PO; -FENO160T30 PO; -FURO40TA4 PO; +GABA300C PO; -GABA300T25 PO; +GABA600T13 PO; +METO-384 PO; -METO50CA PO; +OXYB5TAB16 PO; -PRED20TA PO; -ROSU40TA PO; +ROSU40TA22 PO; -VERA240C2 PO; +VERA240T92 PO; +dextrose 50%-water 50ml dispensing syringe IV ONE
[2021-05-13 19:28] LABS: HEMOGLOBIN 9.6 g/dl (12.0-16.0); MEAN CORPUSCULAR HGB CONC 30.8 g/dL (33.0-36.5); MONOCYTES # (AUTO) 2.1 X10'3 (0-0.9); NEUTROPHILS % (AUTO) 88.4 % (42-75); RED BLOOD COUNT 3.65 X10'6 (4.20-5.60)
[2021-05-13 19:30] LABS: BASOPHILS % (AUTO) 0.2 % (0-1); EOSINOPHILS % (AUTO) 0.1 % (0-6); HEMATOCRIT 31.2 % (35.0-45.0); LYMPHOCYTES # (AUTO) 0.5 X10'3 (1.1-4.8); LYMPHOCYTES % (AUTO) 2.2 % (21-51); MEAN CORPUSCULAR HEMOGLOBIN 26.3 PG (27.0-31.0); MEAN CORPUSCULAR VOLUME 85.4 FL (78-98); MEAN PLATELET VOLUME 8.1 FL (7.4-10.4); MONOCYTES % (AUTO) 9.1 % (2-12); NEUTROPHILS # (AUTO) 20.5 X10'3 (1.8-7.7); PLATELET COUNT 314 X10'3 (140-440); RED CELL DISTRIBUTION WIDTH 26.2 % (11.5-14.5); WHITE BLOOD COUNT 23.2 X10'3 (4.5-11.0)
[2021-05-13 19:54] LABS: ALANINE AMINOTRANSFERASE 431 U/L (12-78); ALBUMIN 1.5 G/DL (3.4-5.0); ALBUMIN/GLOBULIN RATIO 0.3 (1.1-1.5); ALKALINE PHOSPHATASE 133 IU/L (46-116); ANION GAP 17 (8-16); ASPARTATE AMINO TRANSFERASE 510 U/L (10-37); BILIRUBIN,TOTAL 1.6 MG/DL (0.1-1.0); BLOOD UREA NITROGEN 90 MG/DL (7-18); BUN/CREATININE RATIO 22.8 (6.6-38.0); CALCIUM 7.7 MG/DL (8.5-10.1); CHLORIDE 97 MMOL/L (99-107); CREATININE 3.94 MG/DL (0.40-0.90); GLUCOSE 89 MG/DL (70-104); SODIUM 124 MMOL/L (135-145); TOTAL PROTEIN 6.2 G/DL (6.4-8.2); eGFR 12 ML/MIN
[2021-05-13 20:04] LABS: POTASSIUM 7.3 MMOL/L (3.5-5.1); TOTAL CARBON DIOXIDE 10.3 MMOL/L (24-32)
[2021-05-13] MEDS ORDERED: SODIUM ZIRCONIUM CYCLOSILICATE 10 GM POWD.PACK PO STA (21:06)
[2021-05-13] MEDS ORDERED: dextrose 50%-water 50ml dispensing syringe IV ONE (21:10)
[2021-05-13] MEDS ORDERED: albuterol 2.5 MG/3 ML nebule CONTNEB PRN (21:10)
[2021-05-13] MEDS ORDERED: CALCIUM GLUC 1gm/50ml NACL,iso 50 ML IV PRN (21:10)
[2021-05-13] MEDS ORDERED: normal saline 1000ML IV soln IV ONE (21:10)
[2021-05-13] MEDS ORDERED: insulin regular, human 10 units/0.1 ml syringe IV ONE (21:10)
[2021-05-13 21:23] LABS: TOTAL CELLS COUNTED 100
[2021-05-13 21:24] LABS: PLATELET ESTIMATE NORMAL
[2021-05-13 21:25] LABS: ANISOCYTOSIS 3+
[2021-05-13 21:27] LABS: HYPOCHROMASIA 1+; SCHISTOCYTES FEW
[2021-05-13 21:30] LABS: TEAR DROP CELLS FEW
[2021-05-13 21:38] LABS: ABG BASE EXCESS -12.4 mmol/L (-2.0-2.0); ABG HCO3 10.7 mmol/L (22.0-26.0); ABG PO2 (T) 73.7 mmHg (75.0-100.0); ALLEN'S TEST POSITIVE; FCOHb 0.4 % (0.0-3.9); FLOW 3 L/min; FMetHb 0.2 % (0.0-1.5); FO2Hb 93.4 % (94-97); PATIENT TEMPERATURE 36.9; TOTAL HEMOGLOBIN 9.7 G/dl (12.0-16.0)
[2021-05-13 21:50] LABS: MAGNESIUM 1.9 MG/DL (1.5-2.4); PHOSPHORUS 7.4 MG/DL (2.3-4.5)
[2021-05-13] MEDS ORDERED: piperacillin/tazo 3.375gm/50ml 50 ML IV ONE (22:10)
[2021-05-13] MEDS ORDERED: POTA-207 PO (22:27)
[2021-05-13] MEDS ORDERED: ALBU2.5V13 NEB (22:27)
[2021-05-13] MEDS ORDERED: ATOR-2 PO (22:27)
[2021-05-13] MEDS ORDERED: LORA-268 PO (22:27)
[2021-05-13] MEDS: sodium bicarbonate (8.4%) inj. 150 MEQ in dextrose 5%-water 1,000 ML IV SCH (22:29)
[2021-05-13] MEDS ORDERED: vancomycin/NS 1 GM ADD-VANTAGE 250 ML IV ONE (23:30)
[2021-05-13] MEDS ORDERED: acetaminophen 325mg tablet PO PRN (23:45)
[2021-05-13] MEDS ORDERED: albuterol 2.5 MG/3 ML nebule NEB PRN (23:50)
[2021-05-13] MEDS ORDERED: non-formulary drug (Albuterol 2 PUFFS) PO PRN (23:50)
[2021-05-14 01:33] LABS: MEAN CORPUSCULAR HEMOGLOBIN 26.2 PG (27.0-31.0)
[2021-05-14 01:35] LABS: BASOPHILS # (AUTO) 0.1 X10'3 (0-0.2); BASOPHILS % (AUTO) 0.3 % (0-1); EOSINOPHILS % (AUTO) 0 % (0-6); LYMPHOCYTES # (AUTO) 0.7 X10'3 (1.1-4.8); LYMPHOCYTES % (AUTO) 3.5 % (21-51); MEAN CORPUSCULAR HGB CONC 31.3 g/dL (33.0-36.5); MEAN CORPUSCULAR VOLUME 83.7 FL (78-98); MEAN PLATELET VOLUME 7.9 FL (7.4-10.4); MONOCYTES # (AUTO) 0.8 X10'3 (0-0.9); MONOCYTES % (AUTO) 4.4 % (2-12); NEUTROPHILS # (AUTO) 17.2 X10'3 (1.8-7.7); NEUTROPHILS % (AUTO) 91.8 % (42-75); PLATELET COUNT 209 X10'3 (140-440); RED BLOOD COUNT 2.62 X10'6 (4.20-5.60); WHITE BLOOD COUNT 18.7 X10'3 (4.5-11.0)
[2021-05-14 01:49] LABS: ALBUMIN 1.1 G/DL (3.4-5.0); ANION GAP 14 (8-16); BLOOD UREA NITROGEN 89 MG/DL (7-18); BUN/CREATININE RATIO 21.6 (6.6-38.0); CALCIUM 6.9 MG/DL (8.5-10.1); CHLORIDE 99 MMOL/L (99-107); CREATININE 4.12 MG/DL (0.40-0.90); GLUCOSE 136 MG/DL (70-104); POTASSIUM 5.8 MMOL/L (3.5-5.1); SODIUM 127 MMOL/L (135-145); eGFR 11 ML/MIN
[2021-05-14 01:50] LABS: HEMOGLOBIN 6.9 g/dl (12.0-16.0)
[2021-05-14 04:21] VITALS: BP 99/56
[2021-05-14 04:53] VITALS: BP 110/62
[2021-05-14 05:58] VITALS: BP 107/67
[2021-05-14 06:07] LABS: ANISOCYTOSIS 3+; BURR CELLS 1+; PLATELET ESTIMATE NORMAL
[2021-05-14 06:08] LABS: ELLIPTOCYTES FEW; HYPOCHROMASIA 1+; LARGE PLATELETS FEW
[2021-05-14] MEDS: RIVAROXABAN 2.5 MG PO SCH ×2 (08:00→20:00)
[2021-05-14 08:02] LABS: BASOPHILS % (AUTO) 0.2 % (0-1); LYMPHOCYTES # (AUTO) 0.6 X10'3 (1.1-4.8); MEAN CORPUSCULAR HEMOGLOBIN 26.9 PG (27.0-31.0)
[2021-05-14 08:03] LABS: EOSINOPHILS % (AUTO) 0.1 % (0-6); HEMATOCRIT 23.9 % (35.0-45.0); HEMOGLOBIN 7.7 g/dl (12.0-16.0); LYMPHOCYTES % (AUTO) 3.3 % (21-51); MEAN PLATELET VOLUME 8.3 FL (7.4-10.4); MONOCYTES # (AUTO) 1.2 X10'3 (0-0.9); MONOCYTES % (AUTO) 7.1 % (2-12); NEUTROPHILS # (AUTO) 15.7 X10'3 (1.8-7.7); NEUTROPHILS % (AUTO) 89.3 % (42-75); PLATELET COUNT 159 X10'3 (140-440); RED BLOOD COUNT 2.85 X10'6 (4.20-5.60); RED CELL DISTRIBUTION WIDTH 23.5 % (11.5-14.5); WHITE BLOOD COUNT 17.6 X10'3 (4.5-11.0)
[2021-05-14 08:13] LABS: ABG BASE EXCESS -8.3 mmol/L (-2.0-2.0); ABG HCO3 15.9 mmol/L (22.0-26.0); ABG PCO2 (T) 27.9 mmHg (32.0-45.0); ABG PO2 (T) 69.5 mmHg (75.0-100.0); ALLEN'S TEST POSITIVE; FCOHb 0.5 % (0.0-3.9); FLOW 3 L/min; FMetHb 0.2 % (0.0-1.5); FO2Hb 93.3 % (94-97); PATIENT TEMPERATURE 36.7; TOTAL HEMOGLOBIN 9.5 G/dl (12.0-16.0)
[2021-05-14] MEDS: sodium bicarbonate (8.4%) inj. 150 MEQ in dextrose 5%-water 1,000 ML IV SCH ×2 (08:45→22:08)
[2021-05-14] MEDS: oxybutynin 5mg tablet PO SCH (08:46)
[2021-05-14] MEDS: aspirin 81mg tab.chew PO SCH (08:46)
[2021-05-14] MEDS: atorvastatin 20mg tablet PO SCH (08:47)
[2021-05-14] MEDS: metoprolol succinate 25mg (24-HOUR) SR. Tablet PO SCH (08:47)
[2021-05-14] MEDS: verapamil SR 120mg (sust. release) tab PO SCH (08:48)
[2021-05-14] MEDS: sevelamer carbonate 800mg tablet PO SCH ×3 (08:48→17:30)
[2021-05-14] MEDS ORDERED: piperacillin/tazo 3.375gm/50ml 50 ML IV SCH (08:50)
--- NOTE | 2021-05-14 09:00 | NUR ---
spoke to dr hernandez and clarified if pt need the 2 nd unit of packed blood cell.as per md its not needed at this time ,get repeat lactic acid drawn.
[2021-05-14 10:21] LABS: ALANINE AMINOTRANSFERASE 343 U/L (12-78); ALBUMIN 1.1 G/DL (3.4-5.0); ALBUMIN/GLOBULIN RATIO 0.3 (1.1-1.5); ALKALINE PHOSPHATASE 127 IU/L (46-116); ANION GAP 12 (8-16); ASPARTATE AMINO TRANSFERASE 409 U/L (10-37); BILIRUBIN,TOTAL 1.5 MG/DL (0.1-1.0); BLOOD UREA NITROGEN 85 MG/DL (7-18); BUN/CREATININE RATIO 22.5 (6.6-38.0); CALCIUM 6.6 MG/DL (8.5-10.1); CHLORIDE 97 MMOL/L (99-107); CREATININE 3.78 MG/DL (0.40-0.90); GLUCOSE 160 MG/DL (70-104); POTASSIUM 4.6 MMOL/L (3.5-5.1); SODIUM 126 MMOL/L (135-145); TOTAL CARBON DIOXIDE 16.7 MMOL/L (24-32); TOTAL PROTEIN 4.6 G/DL (6.4-8.2); eGFR 12 ML/MIN
[2021-05-14 10:35] LABS: ANISOCYTOSIS 3+; BURR CELLS FEW; ELLIPTOCYTES FEW; HYPOCHROMASIA 1+; LARGE PLATELETS FEW; PLATELET ESTIMATE NORMAL; TEAR DROP CELLS FEW
--- NOTE | 2021-05-14 13:28 | NUR ---
to ct scan.
--- NOTE | 2021-05-14 13:58 | NUR ---
back from CT scan.
--- NOTE | 2021-05-14 15:06 | NUR ---
Dr Bradford called and requested that the patient's dialysis cath in her neck to be removed. Sanchez had consulted with Dr. Cruz who agreed to the removal. Stated the reason for removal was that the dialysis cath was the source of sepsis.
--- NOTE | 2021-05-14 15:17 | NUR ---
paged and spoken to dr hernandez and informed that we are not allowed to remove the dialysis catheter,clarified with charge nurse reba .dr hernandez agrees to get it removed by IR . PER HE WILL PUT THE ORDERS IN.
[2021-05-14] MEDS ORDERED: PERFLUTREN PROTEIN-A MICROSPHR (Optison) 0.22 MG/ML 3ML VIAL IV ONE (15:25)
--- NOTE | 2021-05-14 15:28 | NUR ---
SPOKE TO DICK AT IR AND INFORMED THAT THERE IS ORDER FOR REMOVAL OF DIALYSIS PORT , PER DICK IT WILL BE DONE BY TODAY .
--- NOTE | 2021-05-14 15:47 | NUR ---
pt had 3 soft running bm since am .pt urinated 3 times along with bm.
--- NOTE | 2021-05-14 16:35 | NUR ---
dr [facility] insurance clerk at bedside verbal orders for removing the dialysis port ,informed that we are not allowed as per md nurses can remove the temporary dialysis port out ,manjinder summers is aware ,reba charge nurse agrees to take the cath out.
--- NOTE | 2021-05-14 16:50 | NUR ---
taken temporary dialysis catheter out by therese haskins nurse in presence of journalists and other writers and IR Nurse.no distress noted ,dressing applied ,no excessive bld loss.
--- NOTE | 2021-05-14 16:55 | NUR ---
while was giving report to yvonne rn ,pt bp drop down to 75/48 ,notified the yvonne rn that will page dr mario and hold the transfer untill the pt is stable.
--- NOTE | 2021-05-14 17:00 | NUR ---
dr hernandez paged and recived verbal orders for normal saline 1l iv bolus.reassess the patient after 15 mins and call the hospitalitist.
[2021-05-14] MEDS ORDERED: normal saline 1000ml 1,000 ML IV ONE ×3 (17:05→19:05)
--- NOTE | 2021-05-14 17:35 | NUR ---
Page sent to Dr Mckeon to notify Bp 87/48 after 1L NS bolus.
--- NOTE | 2021-05-14 17:52 | NUR ---
pt lung sound checked clear b/l lung sound ,started the 500cc bolus .pt AOX 4.
--- NOTE | 2021-05-14 17:52 | NUR ---
spoke to dr hernandez informed pt bp is 87/48 after 1 l of n.s ,pt s still aox4,no sob after fluid bolus ,pt has diminished lung sound this am.tele order for normal saline 500 ml iv bolus.
--- NOTE | 2021-05-14 17:58 | NUR ---
[facility] tech at bedside.
--- NOTE | 2021-05-14 18:52 | NUR ---
ASSUMED CARE OF PT. PAGED DR SHAW D/T PT/S LOW BP
--- NOTE | 2021-05-14 19:00 | NUR ---
SPOKE TO DR SHAW OVER THE PHONE. DR SHAW GAVE T.O. FOR ONE LITER OF NS FLUID BOLUS AND THEN REASSESS BP AND PT'S LUNG SOUNDS.
--- NOTE | 2021-05-14 19:57 | NUR ---
pt only had two bites of her food. unable to give her Renvela med d/t pt not eating dinner.
--- NOTE | 2021-05-14 20:01 | NUR ---
Received report from COMMUNITY BOARD MEMBERROBERTO Kim. Patient to follow shortly.
[2021-05-14 20:15] VITALS: BP 105/59
--- NOTE | 2021-05-14 20:15 | NUR ---
Patient arrived to floor via gurney from ER. Transferred into bed using slide board. Pt. A&O and in no apparent distress at this time. VS taken and @ RN skin check completed.
[2021-05-14 22:00] VITALS: BP 110/59
[2021-05-14] MEDS: HYDROcodone/acetaminophen 5mg/325mg tablet PO PRN (22:09)
[2021-05-15] VITALS (11 sets, daily range): BP systolic 70–94; BP diastolic 40–53
--- NOTE | 2021-05-15 00:45 | NUR ---
Okay to bolus 250cc for low BP80/41, HR 54.
[2021-05-15] MEDS: sodium bicarbonate (8.4%) inj. 150 MEQ in dextrose 5%-water 1,000 ML IV SCH ×3 (00:46→20:52)
--- NOTE | 2021-05-15 02:24 | NUR ---
bp 78/39, hr 51. nEW ORDER TO BOLUS WITH 250CC AGAIN.
[2021-05-15] MEDS: VANCOMYCIN LEVEL IV SCH (03:00)
[2021-05-15 06:24] LABS: EOSINOPHILS # (AUTO) 0.1 X10'3 (0-0.9); EOSINOPHILS % (AUTO) 0.2 % (0-6); HEMOGLOBIN 8.3 g/dl (12.0-16.0); MEAN CORPUSCULAR HEMOGLOBIN 27.3 PG (27.0-31.0); MEAN CORPUSCULAR HGB CONC 32.7 g/dL (33.0-36.5); RED CELL DISTRIBUTION WIDTH 23.4 % (11.5-14.5)
[2021-05-15 06:25] LABS: BASOPHILS % (AUTO) 0.2 % (0-1); HEMATOCRIT 25.2 % (35.0-45.0); LYMPHOCYTES # (AUTO) 0.7 X10'3 (1.1-4.8); LYMPHOCYTES % (AUTO) 3.1 % (21-51); MEAN CORPUSCULAR VOLUME 83.3 FL (78-98); MEAN PLATELET VOLUME 8.6 FL (7.4-10.4); MONOCYTES # (AUTO) 1.4 X10'3 (0-0.9); MONOCYTES % (AUTO) 6.5 % (2-12); NEUTROPHILS # (AUTO) 19.7 X10'3 (1.8-7.7); PLATELET COUNT 141 X10'3 (140-440); RED BLOOD COUNT 3.03 X10'6 (4.20-5.60); WHITE BLOOD COUNT 21.9 X10'3 (4.5-11.0)
[2021-05-15 06:55] LABS: ALANINE AMINOTRANSFERASE 337 U/L (12-78); ALBUMIN/GLOBULIN RATIO 0.3 (1.1-1.5); ALKALINE PHOSPHATASE 98 IU/L (46-116); ANION GAP 14 (8-16); ASPARTATE AMINO TRANSFERASE 391 U/L (10-37); BILIRUBIN,TOTAL 1.3 MG/DL (0.1-1.0); BLOOD UREA NITROGEN 84 MG/DL (7-18); BUN/CREATININE RATIO 24.3 (6.6-38.0); CHLORIDE 99 MMOL/L (99-107); CREATININE 3.46 MG/DL (0.40-0.90); GLUCOSE 116 MG/DL (70-104); SODIUM 132 MMOL/L (135-145); TOTAL CARBON DIOXIDE 19.3 MMOL/L (24-32); VANCOMYCIN,RANDOM 10.2 UG/ML; eGFR 14 ML/MIN
--- NOTE | 2021-05-15 06:55 | NUR ---
Patient report given to oncoming day shift RN from U
[2021-05-15 06:56] LABS: ANISOCYTOSIS 3+; PLATELET ESTIMATE NORMAL; TOTAL CELLS COUNTED 100; TOXIC GRANULATION 1+; TOXIC VACUOLATION 2+
[2021-05-15 06:57] LABS: BURR CELLS 1+
[2021-05-15 06:58] LABS: HYPOCHROMASIA 1+; POLYCHROMASIA 1+; TEAR DROP CELLS FEW
[2021-05-15 06:59] LABS: LARGE PLATELETS FEW
[2021-05-15 07:05] LABS: CALCIUM 5.8 MG/DL (8.5-10.1)
[2021-05-15] MEDS ORDERED: VANCOMYCIN 1GM/200ML IVPB 200 ML IV ONE (07:20)
[2021-05-15] MEDS: verapamil SR 120mg (sust. release) tab PO SCH (08:00)
[2021-05-15] MEDS: RIVAROXABAN 2.5 MG PO SCH ×2 (08:00→19:12)
--- NOTE | 2021-05-15 08:04 | NUR ---
Page Sent PAGER ID: [phone] MESSAGE: [id number]. Jennifer Patterson. ESRD, came in with hyperkalemia of 7.0, treated and is now 3.0 with a calcium of 5.8. no dialysis for 3 weeks d/t ? catheter infection. PHIL critical lab [id number] Nayely. Please adv
[2021-05-15] MEDS ORDERED: piperacillin/tazo 3.375gm/50ml 50 ML IV SCH (08:30)
[2021-05-15] MEDS: oxybutynin 5mg tablet PO SCH (10:09)
[2021-05-15] MEDS: sevelamer carbonate 800mg tablet PO SCH ×3 (10:09→18:09)
[2021-05-15] MEDS: metoprolol succinate 25mg (24-HOUR) SR. Tablet PO SCH (10:09)
[2021-05-15] MEDS: aspirin 81mg tab.chew PO SCH (10:09)
[2021-05-15] MEDS: atorvastatin 20mg tablet PO SCH (10:10)
[2021-05-15] MEDS ORDERED: sincalide inj 1.2 MCG in normal saline 50ml IV soln 50 ML IV ONE (11:15)
--- NOTE | 2021-05-15 12:23 | NUR ---
Page Sent promotional table spacer PAGER ID: [phone] MESSAGE: [id number]. Jennifer Patterson. here with bacteremia, metabolic acidosis, left upper arm weakness. now has a BP 74/41, she has been low overnight per RN and has had 2 bolus with response. please advise. Nayely [id number]. thank ubaldo
[2021-05-15] MEDS: VANCOMYCIN 1GM/200ML IVPB 200 ML IV PRN ×2 (15:50→15:52)
--- NOTE | 2021-05-15 16:58 | NUR ---
Page Sent promotional table spacer PAGER ID: [phone] MESSAGE: [phone]. Leonardo Rodriguez. sorry for harrassing you w/ this but her BP is low again now at 78/45. would you like to do a bolus on her. [id number] Pascal
[2021-05-15] MEDS: normal saline 500ml IV soln 500 ML IV SCH ×2 (18:25→20:15)
[2021-05-15] MEDS: LORazepam 0.5 MG tablet PO PRN (18:58)
--- NOTE | 2021-05-15 21:13 | NUR ---
notified Dr. Olivas - pt Leonardo 316 has positive Blood Cx bilateral arms at 10.31 and 13.06 hrs. gram positive cocci pairs & chains. already on Zosyn and vanco..
--- NOTE | 2021-05-15 21:44 | NUR ---
virtual radiology contacted nurse about critical findings on MRI - requested MD phone number - given Dr. Olivas's pager and cell number.
[2021-05-15] MEDS: piperacillin/tazo 3.375gm/50ml 50 ML IV SCH (21:47)
--- NOTE | 2021-05-15 21:48 | NUR ---
late entry 1830 -noted low BP at 1800. order just received for 500ml NS bolus. hung with day RN. BP 89/54. see freq BP on VS. 2029 -pt returned from MRI BP 84/47 hr 86. sats 93% pt sleeping 2129 - noted decreased BP - BP on right arm 79/53 map 62. bolus complete. will continue to monitor and notify MD if BP continues to stay low. contacted Charge on PCU Agnes to find bed that will allow trendelenberg. unable to find at this time.
--- NOTE | 2021-05-15 21:51 | NUR ---
placed pillow under heels, HOB flat to help increase BP. pt resting, asympomatic
--- NOTE | 2021-05-15 22:39 | NUR ---
bp increased to 91/47. pt sitting up eating and watching TV. paged Dr. Olivas r/t positive CVA on MRI results and pt not on anticoagulation. noted surgery tomorrow. see neuro check. ordered tele-neuro consult with Chaim butler. requested assistance from charge manager on tele. she send aid to get machine.
--- NOTE | 2021-05-15 23:00 | NUR ---
pt states 1 week of weakness in bilateral legs, left arm more than right. left index and thumb numbness. usually walks at home independantly. pain in her back prevents ataxia leg test
--- NOTE | 2021-05-15 23:30 | NUR ---
found bed to place pt in trendelenberg. pt awake and eating - BP higher when awake. asympotomatic
--- NOTE | 2021-05-15 23:49 | NUR ---
neurologist consulted via telemedicine. will call Dr. Olivas with recommendations. suggested stat echo to r/o vegetation of heart. no blood thinner at this time. aware of low BP - suggested to consult dr. Olivas for orders on blood pressure. pt asymptomatic for blood pressure.
[2021-05-16] VITALS (36 sets, daily range): BP systolic 70–128; BP diastolic 33–78
[2021-05-16] MEDS: normal saline 500ml IV soln 500 ML IV SCH (00:13)
--- NOTE | 2021-05-16 00:14 | NUR ---
notified Dr. Olivas of low BP. order received for 500ml bolus. sent stat H/H to get value
--- NOTE | 2021-05-16 00:29 | NUR ---
lab reports that machine is out of service for H/H - will take 1 hour to run H/H.
[2021-05-16 01:20] LABS: HEMATOCRIT 23.5 % (35.0-45.0); HEMOGLOBIN 7.7 g/dl (12.0-16.0); MEAN CORPUSCULAR HGB CONC 32.7 g/dL (33.0-36.5)
[2021-05-16 01:23] LABS: MEAN CORPUSCULAR HEMOGLOBIN 26.9 PG (27.0-31.0); MEAN CORPUSCULAR VOLUME 82.1 FL (78-98); MEAN PLATELET VOLUME 8.9 FL (7.4-10.4); PLATELET COUNT 125 X10'3 (140-440); RED BLOOD COUNT 2.86 X10'6 (4.20-5.60); RED CELL DISTRIBUTION WIDTH 22.7 % (11.5-14.5); WHITE BLOOD COUNT 19.3 X10'3 (4.5-11.0)
[2021-05-16] MEDS: sodium bicarbonate (8.4%) inj. 150 MEQ in dextrose 5%-water 1,000 ML IV SCH ×2 (01:59→13:34)
--- NOTE | 2021-05-16 02:09 | NUR ---
notified Dr. Deisy ogden [id number] - Leonardo in room 316. bolus done. 70/42 BP HR 91 - new h/h 7.7/23 was transfused 40 hrs ago 1 unit.
[2021-05-16 02:15] LABS: TOTAL CELLS COUNTED 100
[2021-05-16 02:16] LABS: ANISOCYTOSIS 3+; PLATELET ESTIMATE DECREASED; TOXIC GRANULATION 1+
[2021-05-16 02:17] LABS: TOXIC VACUOLATION FEW
[2021-05-16 02:18] LABS: BURR CELLS FEW; HYPOCHROMASIA 1+; POLYCHROMASIA 1+
[2021-05-16 02:19] LABS: ELLIPTOCYTES FEW
--- NOTE | 2021-05-16 02:43 | NUR ---
Dr. Olivas ordered a unit of blood and additional 500ml NS bolus. will give bolus after blood is transfused. ok to give lasix after blood for hx. chf. sats stable tat this time 92% on 4L
[2021-05-16] MEDS: VANCOMYCIN LEVEL IV SCH (03:00)
--- NOTE | 2021-05-16 03:42 | NUR ---
langston placed. very cloudy with sediment. put out 400ml. pt tolerated well
[2021-05-16 04:02] LABS: CLARITY,URINE CLOUDY (Clear); COLOR,URINE YELLOW (Yellow); GLUCOSE, URINE NEGATIVE (Neg); KETONES,URINE TRACE mg/dl (Neg); LEUKOCYTE ESTERASE ,URINE MODERATE (Neg); NITRITES, URINE NEGATIVE (Neg); OCCULT BLOOD,URINE MODERATE (Neg); PROTEIN,URINE TRACE mg/dl (Neg); UROBILINOGEN,URINE 0.2 E.U/dL (0.2-1.0)
[2021-05-16 04:14] LABS: UA COLLECTION TYPE STRAIGHT CATH
[2021-05-16 04:17] LABS: BACTERIA,URINE 2+ /HPF (Neg); MUCUS STRANDS NONE SEEN /LPF (Neg); SQUAMOUS EPITHELIAL CELL,UR FEW /LPF (FEW); WBC,URINE TNTC /HPF (0-4)
--- NOTE | 2021-05-16 04:30 | NUR ---
transfusion complete. noted pt BP still low. called ICU monorail charger operator - she suggested albumin. will call .
--- NOTE | 2021-05-16 05:00 | NUR ---
Dr. Olivas gave order for albumin when blood complete. notified I did not give lasix post transfusion due to patient's low BP. IV in hand infiltrated with leaking, discontinued IV. noted right bicep IV leaking as well, will attempt to get albumin in before IV blows. bottle 1 of 2 started.
[2021-05-16] MEDS: furosemide 20 MG/2 ML vial IV ONE ×2 (05:10→05:31)
[2021-05-16] MEDS ORDERED: albumin (human) 25% 100 ML IV solution IV ONE (05:25)
[2021-05-16 06:38] LABS: ALANINE AMINOTRANSFERASE 291 U/L (12-78); ALBUMIN 0.8 G/DL (3.4-5.0); ALBUMIN/GLOBULIN RATIO 0.2 (1.1-1.5); ALKALINE PHOSPHATASE 147 IU/L (46-116); ANION GAP 13 (8-16); ASPARTATE AMINO TRANSFERASE 359 U/L (10-37); BILIRUBIN,TOTAL 1.8 MG/DL (0.1-1.0); BLOOD UREA NITROGEN 84 MG/DL (7-18); CHLORIDE 95 MMOL/L (99-107); CREATININE 3.65 MG/DL (0.40-0.90); GLUCOSE 102 MG/DL (70-104); SODIUM 128 MMOL/L (135-145); TOTAL CARBON DIOXIDE 20.5 MMOL/L (24-32); TOTAL PROTEIN 4.1 G/DL (6.4-8.2); VANCOMYCIN,RANDOM 23.7 UG/ML; eGFR 13 ML/MIN
--- NOTE | 2021-05-16 06:38 | NUR ---
reported to days. noted albumin almost complete. MAP is over 60 with BP at 87/50. pt currently on bedpan for attempting to have BM. notified day RN that she was on bedpen - call light in hand.
[2021-05-16 06:42] LABS: POTASSIUM 2.8 MMOL/L (3.5-5.1)
[2021-05-16 06:43] LABS: CALCIUM < 5.0 MG/DL (8.5-10.1)
--- NOTE | 2021-05-16 06:49 | NUR ---
Page Sent PAGER ID: [phone] MESSAGE: [phone]. Jennifersa daniels. pt hs critical again k+ 2.8, Ca less than 5. neurology recommend NURIS. neuro check has worsen overnight. MRI= stoke/septic shock. please adv [phone] Nayely
--- NOTE | 2021-05-16 06:50 | NUR ---
Patient in room MED 316. I have received report from ROBERTO Lindsey and had the opportunity to ask questions and assume patient care.
[2021-05-16] MEDS ORDERED: potassium Cl 20 mEq SR tablet PO PRN (07:00)
[2021-05-16] MEDS ORDERED: potassium CL 10mEq/100ml bag 100 ML IV PRN (07:00)
[2021-05-16] MEDS ORDERED: magnesium 2GM in 50ml NS 50 ML IV PRN (07:00)
[2021-05-16] MEDS ORDERED: magnesium Cl slow-release 64mg tablet PO PRN (07:00)
[2021-05-16] MEDS ORDERED: magnesium 4gm in 100ml NS 100 ML IV PRN (07:00)
[2021-05-16] MEDS: RIVAROXABAN 2.5 MG PO SCH ×2 (08:00→20:00)
[2021-05-16] MEDS: K and/or MAG REPLACEMENT MC SCH ×2 (08:00→20:00)
[2021-05-16] MEDS: verapamil SR 120mg (sust. release) tab PO SCH (08:00)
[2021-05-16 08:28] LABS: EOSINOPHILS # (AUTO) 0.1 X10'3 (0-0.9); HEMOGLOBIN 8.7 g/dl (12.0-16.0); NEUTROPHILS % (AUTO) 86.5 % (42-75)
[2021-05-16 08:30] LABS: BASOPHILS # (AUTO) 0.1 X10'3 (0-0.2); BASOPHILS % (AUTO) 0.3 % (0-1); EOSINOPHILS % (AUTO) 0.6 % (0-6); HEMATOCRIT 26.4 % (35.0-45.0); LYMPHOCYTES % (AUTO) 4.7 % (21-51); MEAN CORPUSCULAR HEMOGLOBIN 27.9 PG (27.0-31.0); MEAN CORPUSCULAR HGB CONC 32.9 g/dL (33.0-36.5); MEAN CORPUSCULAR VOLUME 84.7 FL (78-98); MONOCYTES # (AUTO) 1.7 X10'3 (0-0.9); MONOCYTES % (AUTO) 7.9 % (2-12); NEUTROPHILS # (AUTO) 18.7 X10'3 (1.8-7.7); PLATELET COUNT 108 X10'3 (140-440); RED BLOOD COUNT 3.12 X10'6 (4.20-5.60); RED CELL DISTRIBUTION WIDTH 21.5 % (11.5-14.5); WHITE BLOOD COUNT 21.6 X10'3 (4.5-11.0)
[2021-05-16 08:32] LABS: MAGNESIUM 1.3 MG/DL (1.5-2.4)
[2021-05-16] MEDS: piperacillin/tazo 3.375gm/50ml 50 ML IV SCH ×2 (08:40→20:00)
[2021-05-16 08:41] LABS: POTASSIUM 2.5 MMOL/L (3.5-5.1)
[2021-05-16] MEDS: atorvastatin 20mg tablet PO SCH (08:41)
[2021-05-16] MEDS: aspirin 81mg tab.chew PO SCH (08:41)
[2021-05-16] MEDS: potassium Cl 20 mEq SR tablet PO PRN ×2 (08:42→21:23)
[2021-05-16] MEDS: sevelamer carbonate 800mg tablet PO SCH ×3 (08:42→18:34)
[2021-05-16] MEDS: oxybutynin 5mg tablet PO SCH (08:43)
[2021-05-16] MEDS: calcium chloride inj. 1,000 MG in normal saline 100ml IV soln 90 ML IV SCH ×3 (08:47→11:02)
[2021-05-16 08:55] LABS: PLATELET ESTIMATE DECREASED
[2021-05-16 08:56] LABS: ANISOCYTOSIS 3+; HYPOCHROMASIA 1+
[2021-05-16 08:57] LABS: POIKILOCYTOSIS 1+; POLYCHROMASIA 1+
[2021-05-16 10:28] LABS: HDL CHOLESTEROL 8 MG/DL (35-60); LDL CHOLESTEROL 20 MG/DL (50-100); TRIGLYCERIDES 146 MG/DL (20-135)
[2021-05-16 10:34] LABS: CHOLESTEROL < 50 MG/DL (0-200)
[2021-05-16] MEDS ORDERED: fentaNYL/PF 50MCG/1 ML 2ML syringe ONE (12:03)
[2021-05-16] MEDS ORDERED: midazolam 1 mg/ML 2ml injection ONE (12:03)
[2021-05-16] MEDS ORDERED: LIDOcaine 1% (10mg/ml) 2ml vial ONE ×2 (12:14→12:20)
[2021-05-16] MEDS: HYDROcodone/acetaminophen 5mg/325mg tablet PO PRN (15:31)
[2021-05-16] MEDS: potassium Cl 20 mEq SR tablet PO SCH (18:34)
[2021-05-16] MEDS: calcium carbonate 500mg tablet PO SCH (18:34)
[2021-05-16] MEDS: calcitriol 0.25mcg capsule PO SCH (18:34)
[2021-05-16 20:00] LABS: ALBUMIN 1.5 G/DL (3.4-5.0); ANION GAP 12 (8-16); BLOOD UREA NITROGEN 87 MG/DL (7-18); BUN/CREATININE RATIO 21.9 (6.6-38.0); CALCIUM 6.2 MG/DL (8.5-10.1); CHLORIDE 95 MMOL/L (99-107); CREATININE 3.98 MG/DL (0.40-0.90); GLUCOSE 113 MG/DL (70-104); PHOSPHORUS 5.8 MG/DL (2.3-4.5); POTASSIUM 3.5 MMOL/L (3.5-5.1); SODIUM 129 MMOL/L (135-145); TOTAL CARBON DIOXIDE 22.4 MMOL/L (24-32); eGFR 12 ML/MIN
[2021-05-16 21:41] LABS: BASOPHILS # (AUTO) 0.1 X10'3 (0-0.2); BASOPHILS % (AUTO) 0.3 % (0-1); EOSINOPHILS # (AUTO) 0.1 X10'3 (0-0.9); LYMPHOCYTES # (AUTO) 1.2 X10'3 (1.1-4.8); PLATELET COUNT 104 X10'3 (140-440)
[2021-05-16 21:43] LABS: EOSINOPHILS % (AUTO) 0.3 % (0-6); HEMATOCRIT 24.6 % (35.0-45.0); LYMPHOCYTES % (AUTO) 5.2 % (21-51); MEAN CORPUSCULAR HEMOGLOBIN 27.5 PG (27.0-31.0); MEAN CORPUSCULAR HGB CONC 32.7 g/dL (33.0-36.5); MEAN PLATELET VOLUME 8.7 FL (7.4-10.4); MONOCYTES # (AUTO) 1.8 X10'3 (0-0.9); MONOCYTES % (AUTO) 7.9 % (2-12); NEUTROPHILS # (AUTO) 19.4 X10'3 (1.8-7.7); NEUTROPHILS % (AUTO) 86.3 % (42-75); RED BLOOD COUNT 2.93 X10'6 (4.20-5.60); RED CELL DISTRIBUTION WIDTH 21.6 % (11.5-14.5); WHITE BLOOD COUNT 22.4 X10'3 (4.5-11.0)
[2021-05-16 21:47] LABS: ALBUMIN 1.5 G/DL (3.4-5.0); ANION GAP 12 (8-16); BLOOD UREA NITROGEN 86 MG/DL (7-18); BUN/CREATININE RATIO 21.5 (6.6-38.0); CALCIUM 6.2 MG/DL (8.5-10.1); CHLORIDE 96 MMOL/L (99-107); GLUCOSE 103 MG/DL (70-104); POTASSIUM 3.9 MMOL/L (3.5-5.1); SODIUM 131 MMOL/L (135-145); eGFR 11 ML/MIN
[2021-05-16 22:31] LABS: PLATELET ESTIMATE DECREASED; TOTAL CELLS COUNTED 100
[2021-05-16 22:32] LABS: ANISOCYTOSIS 3+; HYPOCHROMASIA 1+; POLYCHROMASIA FEW
[2021-05-16 22:33] LABS: BURR CELLS FEW; SCHISTOCYTES FEW
[2021-05-17 02:00] VITALS: BP 89/53
[2021-05-17] MEDS: HYDROcodone/acetaminophen 5mg/325mg tablet PO PRN ×2 (02:48→10:58)
[2021-05-17] MEDS: VANCOMYCIN LEVEL IV SCH (03:00)
[2021-05-17 03:40] LABS: ALANINE AMINOTRANSFERASE 253 U/L (12-78); ALBUMIN 1.4 G/DL (3.4-5.0); ALBUMIN/GLOBULIN RATIO 0.5 (1.1-1.5); ALKALINE PHOSPHATASE 120 IU/L (46-116); ANION GAP 11 (8-16); ASPARTATE AMINO TRANSFERASE 345 U/L (10-37); BILIRUBIN,TOTAL 2.5 MG/DL (0.1-1.0); BLOOD UREA NITROGEN 81 MG/DL (7-18); CALCIUM 6.1 MG/DL (8.5-10.1); CHLORIDE 99 MMOL/L (99-107); CREATININE 3.68 MG/DL (0.40-0.90); GLUCOSE 80 MG/DL (70-104); SODIUM 132 MMOL/L (135-145); TOTAL CARBON DIOXIDE 21.9 MMOL/L (24-32); TOTAL PROTEIN 4.1 G/DL (6.4-8.2); VANCOMYCIN,RANDOM 19.9 UG/ML; eGFR 13 ML/MIN
[2021-05-17 03:43] LABS: POTASSIUM 4.6 MMOL/L (3.5-5.1)
[2021-05-17 05:40] LABS: HEMOGLOBIN 7.9 g/dl (12.0-16.0)
[2021-05-17 05:43] LABS: BASOPHILS % (AUTO) 0.2 % (0-1); EOSINOPHILS # (AUTO) 0.1 X10'3 (0-0.9); EOSINOPHILS % (AUTO) 0.5 % (0-6); LYMPHOCYTES # (AUTO) 1.1 X10'3 (1.1-4.8); MEAN CORPUSCULAR HEMOGLOBIN 27.7 PG (27.0-31.0); MEAN CORPUSCULAR HGB CONC 33.1 g/dL (33.0-36.5); MEAN CORPUSCULAR VOLUME 83.7 FL (78-98); MEAN PLATELET VOLUME 8.9 FL (7.4-10.4); MONOCYTES # (AUTO) 1.2 X10'3 (0-0.9); MONOCYTES % (AUTO) 5.6 % (2-12); NEUTROPHILS # (AUTO) 19.7 X10'3 (1.8-7.7); NEUTROPHILS % (AUTO) 88.7 % (42-75); PLATELET COUNT 101 X10'3 (140-440); RED BLOOD COUNT 2.87 X10'6 (4.20-5.60); RED CELL DISTRIBUTION WIDTH 21.6 % (11.5-14.5); WHITE BLOOD COUNT 22.2 X10'3 (4.5-11.0)
[2021-05-17 06:00] VITALS: BP 104/66
--- NOTE | 2021-05-17 06:43 | NUR ---
Problems reprioritized. Patient report given, questions answered & plan of care reviewed with Maritza.
[2021-05-17 07:38] LABS: ANISOCYTOSIS 3+; HYPOCHROMASIA 1+; PLATELET ESTIMATE DECREASED; POLYCHROMASIA FEW; TOTAL CELLS COUNTED 100
[2021-05-17 07:39] LABS: BURR CELLS FEW; SCHISTOCYTES FEW
[2021-05-17] MEDS: K and/or MAG REPLACEMENT MC SCH ×2 (08:00→20:00)
[2021-05-17] MEDS: piperacillin/tazo 3.375gm/50ml 50 ML IV SCH ×2 (08:00→23:00)
[2021-05-17] MEDS: calcitriol 0.25mcg capsule PO SCH (08:00)
[2021-05-17] MEDS: verapamil SR 120mg (sust. release) tab PO SCH (08:00)
[2021-05-17] MEDS: rivaroxaban 10mg tablet PO SCH ×2 (08:00→20:00)
[2021-05-17] MEDS: aspirin 81mg tab.chew PO SCH (08:00)
[2021-05-17] MEDS: oxybutynin 5mg tablet PO SCH (08:00)
[2021-05-17] MEDS: atorvastatin 20mg tablet PO SCH (08:00)
[2021-05-17] MEDS: calcium carbonate 500mg tablet PO SCH ×3 (08:30→17:46)
[2021-05-17] MEDS: sevelamer carbonate 800mg tablet PO SCH ×3 (08:30→17:30)
[2021-05-17] MEDS: potassium Cl 20 mEq SR tablet PO SCH ×2 (08:30→17:30)
--- NOTE | 2021-05-17 11:52 | NUR ---
page sent PAGER ID: [phone] MESSAGE: [phone]. Iftikhar Hayes. post op ileostomy. now on low residue diet. is okay to change him to regular ensure instead of clear. [phone] Nayely
--- NOTE | 2021-05-17 11:53 | NUR ---
please disregard last note.
[2021-05-17 15:00] VITALS: BP 88/51
[2021-05-17 16:36] LABS: FERRITIN 302 NG/ML (8-252)
[2021-05-17 16:37] LABS: CREATINE KINASE 2662 U/L (26-192)
[2021-05-17 16:50] LABS: % IRON SATURATION 19 % (11-46); IRON 19 UG/DL (49-151); TOTAL IRON BINDING CAPACITY 102 UG/DL (259-388)
[2021-05-17] MEDS: normal saline 1000ml 1,000 ML IV SCH (17:46)
--- NOTE | 2021-05-17 17:49 | NUR ---
renvela was not given all day, requested dose from pharmacy multiple times, no response
[2021-05-17 18:00] VITALS: BP 86/47
[2021-05-17 22:00] VITALS: BP 91/46
[2021-05-17] MEDS ORDERED: DOXYCYCLINE 100MG CAPSULE PO STA (23:24)
[2021-05-17] MEDS ORDERED: ciprofloxacin 250mg tablet PO ONE (23:25)
[2021-05-18 02:00] VITALS: BP 82/51
[2021-05-18] MEDS: normal saline 1000ml 1,000 ML IV SCH ×3 (02:05→22:40)
[2021-05-18 03:40] LABS: ALANINE AMINOTRANSFERASE 265 U/L (12-78); ALBUMIN 1.2 G/DL (3.4-5.0); ALBUMIN/GLOBULIN RATIO 0.4 (1.1-1.5); ALKALINE PHOSPHATASE 152 IU/L (46-116); ANION GAP 14 (8-16); ASPARTATE AMINO TRANSFERASE 371 U/L (10-37); BILIRUBIN,TOTAL 2.9 MG/DL (0.1-1.0); BLOOD UREA NITROGEN 91 MG/DL (7-18); BUN/CREATININE RATIO 21.7 (6.6-38.0); CALCIUM 6.7 MG/DL (8.5-10.1); CHLORIDE 95 MMOL/L (99-107); CREATININE 4.19 MG/DL (0.40-0.90); GLUCOSE 73 MG/DL (70-104); SODIUM 129 MMOL/L (135-145); TOTAL CARBON DIOXIDE 20.5 MMOL/L (24-32); TOTAL PROTEIN 4.2 G/DL (6.4-8.2); VANCOMYCIN,RANDOM 19.3 UG/ML; eGFR 11 ML/MIN
[2021-05-18 03:54] LABS: POTASSIUM 4.8 MMOL/L (3.5-5.1)
[2021-05-18] MEDS: VANCOMYCIN LEVEL IV SCH (03:57)
--- NOTE | 2021-05-18 06:37 | NUR ---
Problems reprioritized. Patient report given, questions answered & plan of care reviewed with
[2021-05-18 07:50] LABS: HEMOGLOBIN 8.2 g/dl (12.0-16.0)
[2021-05-18 07:53] LABS: MEAN CORPUSCULAR HEMOGLOBIN 27.9 PG (27.0-31.0); MEAN CORPUSCULAR HGB CONC 32.9 g/dL (33.0-36.5); MEAN CORPUSCULAR VOLUME 84.8 FL (78-98); MEAN PLATELET VOLUME 8.6 FL (7.4-10.4); PLATELET COUNT 108 X10'3 (140-440); RED BLOOD COUNT 2.94 X10'6 (4.20-5.60); RED CELL DISTRIBUTION WIDTH 21.7 % (11.5-14.5)
[2021-05-18 07:56] LABS: WHITE BLOOD COUNT 25.1 X10'3 (4.5-11.0)
[2021-05-18] MEDS: K and/or MAG REPLACEMENT MC SCH ×2 (08:00→20:00)
--- NOTE | 2021-05-18 08:04 | NUR ---
PAGER ID: [phone] MESSAGE: Cristal [phone] Re: Leonardo 316B Critical WBC today 25.1 please call Addendum: 05/18/21 at 0808 by Sabrina Thornton RN See Critical result notes
[2021-05-18 08:22] LABS: MICROCYTOSIS 1+; PLATELET ESTIMATE DECREASED; TOTAL CELLS COUNTED 100
[2021-05-18 08:23] LABS: POLYCHROMASIA FEW; SCHISTOCYTES FEW
[2021-05-18] MEDS: potassium Cl 20 mEq SR tablet PO SCH ×2 (10:07→18:12)
[2021-05-18] MEDS: aspirin 81mg tab.chew PO SCH (10:08)
[2021-05-18] MEDS: calcitriol 0.25mcg capsule PO SCH (10:08)
[2021-05-18] MEDS: oxybutynin 5mg tablet PO SCH (10:08)
[2021-05-18] MEDS: sevelamer carbonate 800mg tablet PO SCH ×3 (10:09→18:13)
[2021-05-18] MEDS: calcium carbonate 500mg tablet PO SCH ×3 (10:09→18:12)
[2021-05-18] MEDS: rivaroxaban 10mg tablet PO SCH (10:10)
[2021-05-18] MEDS: piperacillin/tazo 3.375gm/50ml 50 ML IV SCH ×2 (10:10→20:26)
[2021-05-18] MEDS: HYDROcodone/acetaminophen 5mg/325mg tablet PO PRN (10:13)
[2021-05-18 11:00] VITALS: BP 94/45
[2021-05-18 11:30] VITALS: BP 98/56
[2021-05-18] MEDS ORDERED: iohexol 300 MG/1 ML 50ml polymer ONE (12:30)
--- NOTE | 2021-05-18 13:38 | NUR ---
Initial: Pt admit for hyperkalemia which has since been corrected. Upon admission pt was noted to be septic with positive MRSA per MD note. Pt with h/o renal failure and HD though HD not warranted at this time per reproductive surgeon note. 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 Pt s/p BSS with ST recs regular consistency of food and liquids as pt has full upper and lower dentures with no s/s of aspiration. Pt on a renal diet and initially eating poorly with mostly 25% PO intake however has improved to 75-100% PO intake since 05/17. LBM 05/17. No nutrition intervention implemented at this time. Will continue to follow and make recommendations as appropriate. Recommendations: 1) Continue renal diet; consider liberalizing to regular if pt continues to require electrolyte replacement 2) Monitor need for ONS; pt dislikes Nepro without the addition of chocolate syrup and prefers not to have is TID per d/w pt at previous admit 3) Routine Phos binder per MD 4) Bowel care per rx 5) Scaled weight this admit; weekly scaled weights thereafter Addendum: 05/18/21 at [address] Amended: Links added.
[2021-05-18 15:00] VITALS: BP 97/50
--- NOTE | 2021-05-18 16:12 | NUR ---
PAGER ID: [phone] MESSAGE: Cristal Re: 316B Leonardo please call Re: Domingo test ordered. from 05/15
--- NOTE | 2021-05-18 16:16 | NUR ---
Per Dr Mckeon no need for Neuro Checks on patient.
[2021-05-18 18:00] VITALS: BP 84/47
--- NOTE | 2021-05-18 18:42 | NUR ---
Problems reprioritized. Patient report given, questions answered & plan of care reviewed with Tana MEJIA.
[2021-05-18] MEDS: enoxaparin 60mg/0.6ml syringe SUBCUT SCH (20:26)
[2021-05-18 22:00] VITALS: BP 104/56
[2021-05-19] VITALS (7 sets, daily range): BP systolic 105–129; BP diastolic 57–96
[2021-05-19] MEDS: VANCOMYCIN LEVEL IV SCH (03:00)
[2021-05-19 06:22] LABS: BASOPHILS # (AUTO) 0.1 X10'3 (0-0.2); BASOPHILS % (AUTO) 0.5 % (0-1); EOSINOPHILS # (AUTO) 0.2 X10'3 (0-0.9); HEMOGLOBIN 8.6 g/dl (12.0-16.0)
[2021-05-19 06:25] LABS: HEMATOCRIT 26.8 % (35.0-45.0); LYMPHOCYTES # (AUTO) 1.3 X10'3 (1.1-4.8); LYMPHOCYTES % (AUTO) 5.5 % (21-51); MEAN CORPUSCULAR HEMOGLOBIN 27.9 PG (27.0-31.0); MEAN CORPUSCULAR HGB CONC 32.2 g/dL (33.0-36.5); MEAN CORPUSCULAR VOLUME 86.6 FL (78-98); MEAN PLATELET VOLUME 8.9 FL (7.4-10.4); MONOCYTES # (AUTO) 1.4 X10'3 (0-0.9); MONOCYTES % (AUTO) 6.2 % (2-12); NEUTROPHILS # (AUTO) 20.1 X10'3 (1.8-7.7); NEUTROPHILS % (AUTO) 86.8 % (42-75); PLATELET COUNT 114 X10'3 (140-440); RED BLOOD COUNT 3.09 X10'6 (4.20-5.60); RED CELL DISTRIBUTION WIDTH 21.9 % (11.5-14.5); WHITE BLOOD COUNT 23.2 X10'3 (4.5-11.0)
--- NOTE | 2021-05-19 06:39 | NUR ---
Pt informed that she is NPO, for procedure in am. Received Micro report of aerobic BC gram + cocci/ clusters, notified faculty i on call medical assistant MD Quintero of results.
[2021-05-19] MEDS: piperacillin/tazo 3.375gm/50ml 50 ML IV SCH ×2 (07:58→19:23)
[2021-05-19] MEDS: oxybutynin 5mg tablet PO SCH (08:00)
[2021-05-19] MEDS: aspirin 81mg tab.chew PO SCH (08:00)
[2021-05-19] MEDS: K and/or MAG REPLACEMENT MC SCH ×2 (08:00→19:24)
[2021-05-19] MEDS: calcitriol 0.25mcg capsule PO SCH (08:00)
[2021-05-19] MEDS: sevelamer carbonate 800mg tablet PO SCH ×3 (08:03→17:11)
[2021-05-19] MEDS: potassium Cl 20 mEq SR tablet PO SCH ×2 (08:03→17:11)
[2021-05-19] MEDS: calcium carbonate 500mg tablet PO SCH ×3 (08:03→17:11)
[2021-05-19] MEDS: normal saline 1000ml 1,000 ML IV SCH (08:40)
[2021-05-19 08:56] LABS: ALANINE AMINOTRANSFERASE 269 U/L (12-78); ALBUMIN 1.1 G/DL (3.4-5.0); ALBUMIN/GLOBULIN RATIO 0.3 (1.1-1.5); ALKALINE PHOSPHATASE 157 IU/L (46-116); ASPARTATE AMINO TRANSFERASE 345 U/L (10-37); BILIRUBIN,TOTAL 2.6 MG/DL (0.1-1.0); BLOOD UREA NITROGEN 91 MG/DL (7-18); BUN/CREATININE RATIO 21.4 (6.6-38.0); CALCIUM 7.5 MG/DL (8.5-10.1); CREATININE 4.25 MG/DL (0.40-0.90); GLUCOSE 93 MG/DL (70-104); TOTAL CARBON DIOXIDE 18.4 MMOL/L (24-32); TOTAL PROTEIN 4.8 G/DL (6.4-8.2); VANCOMYCIN,RANDOM 17.7 UG/ML; eGFR 11 ML/MIN
--- NOTE | 2021-05-19 10:14 | NUR ---
[facility] called. They are unsure if procedure to replace drain tube will be done today or tomorrow.
--- NOTE | 2021-05-19 10:22 | NUR ---
[facility] note: Spoke with primary RN Lynn and let her know patient's procedure will be done tomorrow. Okay to eat today, NPO after midnight. Per Dr Bower, hold AM lovenox on 05/20/21.
--- NOTE | 2021-05-19 10:58 | NUR ---
Family member updated.
[2021-05-19 14:35] LABS: POTASSIUM 5.1 MMOL/L (3.3-5.1)
[2021-05-19] MEDS ORDERED: furosemide 40mg/4ml inj IV ONE (16:10)
[2021-05-19] MEDS: sodium bicarbonate (8.4%) inj. 150 MEQ in dextrose 5%-water 1,000 ML IV SCH (17:11)
--- NOTE | 2021-05-19 18:17 | NUR ---
SPOKE WITH [facility] THIS am STATES THEY WILL DO PROCEDURE TOMORROW. OK TO GIVE LOVENOX TONIGHT AND PLEASE HOLD IN AM.
--- NOTE | 2021-05-19 18:26 | NUR ---
Patient in room MED 316. I have received report from celi Bailey and had the opportunity to ask questions and assume patient care.
--- NOTE | 2021-05-19 18:28 | NUR ---
Gave report to Tarsha MEJIA.
[2021-05-19] MEDS: enoxaparin 60mg/0.6ml syringe SUBCUT SCH (19:24)
[2021-05-19] MEDS: HYDROcodone/acetaminophen 5mg/325mg tablet PO PRN (19:55)
[2021-05-20 02:00] VITALS: BP 103/57
[2021-05-20] MEDS: VANCOMYCIN LEVEL IV SCH (02:37)
[2021-05-20 06:00] VITALS: BP 110/63
--- NOTE | 2021-05-20 06:24 | NUR ---
Problems reprioritized. Patient report given, questions answered & plan of care reviewed with ROBERTO CALLEJAS.
[2021-05-20] MEDS: piperacillin/tazo 3.375gm/50ml 50 ML IV SCH ×2 (07:21→20:48)
[2021-05-20] MEDS: oxybutynin 5mg tablet PO SCH (07:21)
[2021-05-20] MEDS: calcitriol 0.25mcg capsule PO SCH (07:21)
[2021-05-20] MEDS: sodium bicarbonate (8.4%) inj. 150 MEQ in dextrose 5%-water 1,000 ML IV SCH ×2 (07:22→14:13)
[2021-05-20] MEDS: calcium carbonate 500mg tablet PO SCH ×3 (07:36→17:00)
[2021-05-20] MEDS: potassium Cl 20 mEq SR tablet PO SCH ×2 (07:36→17:00)
[2021-05-20] MEDS: enoxaparin 60mg/0.6ml syringe SUBCUT SCH (07:37)
[2021-05-20] MEDS: sevelamer carbonate 800mg tablet PO SCH ×3 (07:37→17:00)
[2021-05-20] MEDS: aspirin 81mg tab.chew PO SCH (07:38)
[2021-05-20] MEDS: K and/or MAG REPLACEMENT MC SCH ×2 (08:00→20:00)
[2021-05-20 08:04] LABS: ALANINE AMINOTRANSFERASE 256 U/L (12-78); ALBUMIN 0.9 G/DL (3.4-5.0); ALBUMIN/GLOBULIN RATIO 0.2 (1.1-1.5); ALKALINE PHOSPHATASE 150 IU/L (46-116); ANION GAP 14 (8-16); ASPARTATE AMINO TRANSFERASE 335 U/L (10-37); BILIRUBIN,TOTAL 2.8 MG/DL (0.1-1.0); BLOOD UREA NITROGEN 92 MG/DL (7-18); CALCIUM 7.4 MG/DL (8.5-10.1); CHLORIDE 95 MMOL/L (99-107); CREATININE 4.18 MG/DL (0.40-0.90); GLUCOSE 70 MG/DL (70-104); MAGNESIUM 1.6 MG/DL (1.5-2.4); PHOSPHORUS 5.7 MG/DL (2.3-4.5); SODIUM 127 MMOL/L (135-145); TOTAL CARBON DIOXIDE 18.2 MMOL/L (24-32); TOTAL PROTEIN 4.7 G/DL (6.4-8.2); VANCOMYCIN,RANDOM 15.8 UG/ML; eGFR 11 ML/MIN
[2021-05-20 08:08] LABS: POTASSIUM 5.6 MMOL/L (3.5-5.1)
[2021-05-20 09:59] LABS: MEAN CORPUSCULAR HEMOGLOBIN 27.8 PG (27.0-31.0); MEAN CORPUSCULAR HGB CONC 30.8 g/dL (33.0-36.5); RED BLOOD COUNT 2.98 X10'6 (4.20-5.60); RED CELL DISTRIBUTION WIDTH 21.6 % (11.5-14.5); WHITE BLOOD COUNT 21.9 X10'3 (4.5-11.0)
[2021-05-20 10:00] VITALS: BP 122/66
[2021-05-20 10:00] LABS: BASOPHILS % (AUTO) 0 % (0-1); EOSINOPHILS # (AUTO) 0.2 X10'3 (0-0.9); EOSINOPHILS % (AUTO) 1.1 % (0-6); LYMPHOCYTES # (AUTO) 1.2 X10'3 (1.1-4.8); LYMPHOCYTES % (AUTO) 5.7 % (21-51); MEAN PLATELET VOLUME 8.6 FL (7.4-10.4); MONOCYTES # (AUTO) 1.8 X10'3 (0-0.9); MONOCYTES % (AUTO) 8.4 % (2-12); NEUTROPHILS # (AUTO) 18.6 X10'3 (1.8-7.7); NEUTROPHILS % (AUTO) 84.8 % (42-75); PLATELET COUNT 108 X10'3 (140-440)
[2021-05-20 10:01] LABS: HEMATOCRIT 26.4 % (35.0-45.0); HEMOGLOBIN 8.5 g/dl (12.0-16.0); MEAN CORPUSCULAR VOLUME 86.7 FL (78-98)
[2021-05-20 14:00] VITALS: BP 117/60
[2021-05-20] MEDS: HYDROcodone/acetaminophen 5mg/325mg tablet PO PRN (16:13)
[2021-05-20] MEDS ORDERED: heparin 10,000 units/1 ML INJ IV ONE (16:15)
[2021-05-20] MEDS ORDERED: heparin 10,000 units/1 ML INJ IV PRN (16:15)
[2021-05-20] MEDS: heparin 25,000 UNIT/250ml bag 250 ML IV SCH (17:40)
--- NOTE | 2021-05-20 18:15 | NUR ---
Patient in room MED 316. I have received report from Woo MEJIA and had the opportunity to ask questions and assume patient care.
[2021-05-20 19:00] VITALS: BP 110/56
[2021-05-20] MEDS ORDERED: enoxaparin 40mg/0.4ml syringe SUBCUT SCH (20:00)
[2021-05-20] MEDS: furosemide 40mg/4ml inj IV SCH (20:48)
[2021-05-20] MEDS: SODIUM ZIRCONIUM CYCLOSILICATE 10 GM POWD.PACK PO SCH (20:48)
--- NOTE | 2021-05-20 21:02 | NUR ---
Per pharmacist Di the heparin and zosyn are compatible.
[2021-05-21] VITALS (7 sets, daily range): BP systolic 112–134; BP diastolic 56–66
[2021-05-21] MEDS: HYDROcodone/acetaminophen 5mg/325mg tablet PO PRN ×3 (00:08→21:57)
[2021-05-21 01:27] LABS: APTT > 139 SECONDS (22-32)
--- NOTE | 2021-05-21 01:42 | NUR ---
promotional table spacer promotional table spacer Page Sent promotional table spacer PAGER ID: [phone] MESSAGE: FYI:316 Leonardo T , PTT of 139. Have stopped drip (for 2hrs) and then will restart at 600 units per hour per protocol with a f/u lab 2 hrs after that. Miguelina 1941 (164 character message out of a maximum of 240) Close [X] Send Another Page Thank you for visiting [facility] promotional table spacer promotional table spacer
[2021-05-21] MEDS: sodium bicarbonate (8.4%) inj. 150 MEQ in dextrose 5%-water 1,000 ML IV SCH (02:40)
[2021-05-21] MEDS: VANCOMYCIN LEVEL IV SCH (03:00)
--- NOTE | 2021-05-21 03:30 | NUR ---
Heparin drip re-started after being on hold for 2hrs as PTT was 139. Rate has been decreased from 800units per hr to 600 units per hour. Next lab is scheduled for 529.
--- NOTE | 2021-05-21 06:30 | NUR ---
Problems reprioritized. Patient report given, questions answered & plan of care reviewed with Dianna MEJIA.
[2021-05-21] MEDS: SODIUM ZIRCONIUM CYCLOSILICATE 10 GM POWD.PACK PO SCH ×3 (08:00→20:21)
[2021-05-21] MEDS: K and/or MAG REPLACEMENT MC SCH ×2 (08:00→20:00)
[2021-05-21] MEDS ORDERED: enoxaparin 30mg/0.3ml syringe SUBCUT SCH (08:00)
--- NOTE | 2021-05-21 08:52 | NUR ---
Page Sent PAGER ID: [phone] MESSAGE: BLAYNE 8263-RE: NICHOLAS PRATHERB... GRAM POSITIVE COCCI IN CLUSTERS SEEN IN AEROBIC BOTTLE @ 24 HRS FROM R HAND DRAWN 05/20/21
[2021-05-21] MEDS: furosemide 40mg/4ml inj IV SCH (08:55)
[2021-05-21] MEDS: calcium carbonate 500mg tablet PO SCH ×3 (08:55→17:13)
[2021-05-21] MEDS: oxybutynin 5mg tablet PO SCH (08:55)
[2021-05-21] MEDS: calcitriol 0.25mcg capsule PO SCH (08:55)
[2021-05-21] MEDS: piperacillin/tazo 3.375gm/50ml 50 ML IV SCH ×2 (08:55→20:41)
[2021-05-21] MEDS: aspirin 81mg tab.chew PO SCH (08:56)
[2021-05-21] MEDS: sevelamer carbonate 800mg tablet PO SCH ×3 (08:56→17:13)
[2021-05-21] MEDS: potassium Cl 20 mEq SR tablet PO SCH ×2 (08:56→17:13)
[2021-05-21 10:03] LABS: ALANINE AMINOTRANSFERASE 271 U/L (12-78); ALBUMIN 0.8 G/DL (3.4-5.0); ALBUMIN/GLOBULIN RATIO 0.2 (1.1-1.5); ALKALINE PHOSPHATASE 126 IU/L (46-116); ANION GAP 13 (8-16); ASPARTATE AMINO TRANSFERASE 335 U/L (10-37); BILIRUBIN,TOTAL 3.2 MG/DL (0.1-1.0); BLOOD UREA NITROGEN 91 MG/DL (7-18); BUN/CREATININE RATIO 22.1 (6.6-38.0); CALCIUM 6.9 MG/DL (8.5-10.1); CHLORIDE 91 MMOL/L (99-107); CREATININE 4.12 MG/DL (0.40-0.90); GLUCOSE 101 MG/DL (70-104); MAGNESIUM 1.5 MG/DL (1.5-2.4); PHOSPHORUS 5.6 MG/DL (2.3-4.5); POTASSIUM 4.7 MMOL/L (3.5-5.1); SODIUM 127 MMOL/L (135-145); TOTAL PROTEIN 4.5 G/DL (6.4-8.2); VANCOMYCIN,RANDOM 13.6 UG/ML; eGFR 11 ML/MIN
[2021-05-21 10:05] LABS: BASOPHILS # (AUTO) 0.1 X10'3 (0-0.2); BASOPHILS % (AUTO) 0.5 % (0-1); EOSINOPHILS # (AUTO) 0.2 X10'3 (0-0.9); EOSINOPHILS % (AUTO) 0.9 % (0-6); HEMATOCRIT 22.8 % (35.0-45.0); HEMOGLOBIN 7.5 g/dl (12.0-16.0); LYMPHOCYTES % (AUTO) 4.6 % (21-51); MEAN CORPUSCULAR HEMOGLOBIN 27.7 PG (27.0-31.0); MEAN CORPUSCULAR HGB CONC 32.9 g/dL (33.0-36.5); MEAN CORPUSCULAR VOLUME 84.4 FL (78-98); MEAN PLATELET VOLUME 8.5 FL (7.4-10.4); MONOCYTES # (AUTO) 1.4 X10'3 (0-0.9); MONOCYTES % (AUTO) 6.4 % (2-12); NEUTROPHILS # (AUTO) 18.7 X10'3 (1.8-7.7); NEUTROPHILS % (AUTO) 87.6 % (42-75); PLATELET COUNT 130 X10'3 (140-440); RED CELL DISTRIBUTION WIDTH 21.9 % (11.5-14.5); WHITE BLOOD COUNT 21.3 X10'3 (4.5-11.0)
[2021-05-21 10:19] LABS: ANISOCYTOSIS 3+; PLATELET ESTIMATE DECREASED; SCHISTOCYTES FEW
[2021-05-21] MEDS: heparin 25,000 UNIT/250ml bag 250 ML IV SCH ×3 (12:24→18:02)
--- NOTE | 2021-05-21 12:24 | NUR ---
PAGED PICC RN, REQUESTING EXTENDED IV, OK PER DR PATEL
[2021-05-21] MEDS ORDERED: vancomycin inj 500 MG in normal saline 100ml IV soln 100 ML IV ONE (13:00)
--- NOTE | 2021-05-21 14:20 | NUR ---
Called and left msg with Dr. Plunkett to call us back. It is regarding the [place] catheter.
--- NOTE | 2021-05-21 15:17 | NUR ---
PAGED PICC RN... DUE TO PT ELEVATED WBC AND + BLOOD CULT, OK PER DR DRUMMOND TO DO EXTENDED IV ON PT IN 316. THANK YOU :)
--- NOTE | 2021-05-21 15:33 | NUR ---
Page Sent PAGER ID: [phone] MESSAGE: BLAYNE 8263-RE: NICHOLAS PRATHER 316B...CRITICAL LAB...PTT 96...WILL HOLD HEPARIN PER PROTOCOL AND DECREASE AFTER 2 HRS
--- NOTE | 2021-05-21 18:25 | NUR ---
Patient in room MED 316. I have received report from ROBERTO Bustamante and had the opportunity to ask questions and assume patient care. Patient resting comfortably on bed, she is A&Ox4, ALFARO and is appropriate. Had small BM and pericare and linen change provided.
[2021-05-22] VITALS (14 sets, daily range): BP systolic 100–165; BP diastolic 51–87
[2021-05-22] MEDS: VANCOMYCIN LEVEL IV SCH (03:00)
[2021-05-22] MEDS ORDERED: ondansetron 4mg rapidly disintigrating tab PO ONE (06:00)
--- NOTE | 2021-05-22 06:31 | NUR ---
Problems reprioritized. Patient report given, questions answered & plan of care reviewed with ROBERTO Garcia.
[2021-05-22 07:20] LABS: HEMOGLOBIN 8.5 g/dl (12.0-16.0)
[2021-05-22 07:22] LABS: BASOPHILS # (AUTO) 0.2 X10'3 (0-0.2); BASOPHILS % (AUTO) 0.6 % (0-1); EOSINOPHILS # (AUTO) 0.3 X10'3 (0-0.9); HEMATOCRIT 26.3 % (35.0-45.0); LYMPHOCYTES % (AUTO) 3.5 % (21-51); MEAN CORPUSCULAR HEMOGLOBIN 27.7 PG (27.0-31.0); MEAN CORPUSCULAR HGB CONC 32.2 g/dL (33.0-36.5); MEAN CORPUSCULAR VOLUME 85.9 FL (78-98); MEAN PLATELET VOLUME 8.2 FL (7.4-10.4); MONOCYTES # (AUTO) 2.1 X10'3 (0-0.9); MONOCYTES % (AUTO) 7.7 % (2-12); NEUTROPHILS % (AUTO) 87.2 % (42-75); PLATELET COUNT 151 X10'3 (140-440); RED BLOOD COUNT 3.06 X10'6 (4.20-5.60); RED CELL DISTRIBUTION WIDTH 21.7 % (11.5-14.5)
[2021-05-22 07:27] LABS: WHITE BLOOD COUNT 27.5 X10'3 (4.5-11.0)
--- NOTE | 2021-05-22 07:27 | NUR ---
Paged PICC nurse to assist with xPIV for surgery.
--- NOTE | 2021-05-22 07:34 | NUR ---
Paged Dr Bradford PAGER ID: [phone] MESSAGE: [phone]. Jennifer Pattreson. Critical WBC 27.5. Radha Sanchez [phone]
[2021-05-22 07:49] LABS: TOTAL CELLS COUNTED 100
[2021-05-22 07:50] LABS: ACANTHOCYTES FEW; ANISOCYTOSIS 3+; PLATELET ESTIMATE NORMAL
[2021-05-22 07:51] LABS: TARGET CELLS FEW
[2021-05-22 07:52] LABS: SCHISTOCYTES FEW
[2021-05-22] MEDS: calcitriol 0.25mcg capsule PO SCH (08:00)
[2021-05-22] MEDS: SODIUM ZIRCONIUM CYCLOSILICATE 10 GM POWD.PACK PO SCH ×3 (08:00→19:01)
[2021-05-22] MEDS: oxybutynin 5mg tablet PO SCH (08:00)
[2021-05-22] MEDS: aspirin 81mg tab.chew PO SCH (08:00)
[2021-05-22] MEDS: K and/or MAG REPLACEMENT MC SCH ×2 (08:00→19:02)
[2021-05-22 08:01] LABS: ALBUMIN 0.9 G/DL (3.4-5.0); ANION GAP 14 (8-16); BLOOD UREA NITROGEN 95 MG/DL (7-18); BUN/CREATININE RATIO 24.2 (6.6-38.0); CALCIUM 7.5 MG/DL (8.5-10.1); CHLORIDE 90 MMOL/L (99-107); CREATININE 3.93 MG/DL (0.40-0.90); GLUCOSE 62 MG/DL (70-104); POTASSIUM 5.1 MMOL/L (3.5-5.1); SODIUM 126 MMOL/L (135-145); TOTAL CARBON DIOXIDE 21.9 MMOL/L (24-32); VANCOMYCIN,RANDOM 18.1 UG/ML; eGFR 12 ML/MIN
[2021-05-22] MEDS: sevelamer carbonate 800mg tablet PO SCH ×3 (08:30→17:30)
[2021-05-22] MEDS: calcium carbonate 500mg tablet PO SCH ×3 (08:30→17:30)
[2021-05-22] MEDS: potassium Cl 20 mEq SR tablet PO SCH (08:30)
[2021-05-22 08:40] LABS: ALANINE AMINOTRANSFERASE 302 U/L (12-78); ALBUMIN/GLOBULIN RATIO 0.2 (1.1-1.5); ALKALINE PHOSPHATASE 142 IU/L (46-116); ASPARTATE AMINO TRANSFERASE 361 U/L (10-37); BILIRUBIN,TOTAL 4.4 MG/DL (0.1-1.0); TOTAL PROTEIN 4.9 G/DL (6.4-8.2)
--- NOTE | 2021-05-22 09:41 | NUR ---
Per Dr Plunkett. Clarified IV access OK to insert xPIV NOT a PICC line.
[2021-05-22] MEDS: furosemide 40mg/4ml inj IV SCH (10:04)
[2021-05-22] MEDS: piperacillin/tazo 3.375gm/50ml 50 ML IV SCH ×2 (10:04→20:09)
[2021-05-22] MEDS ORDERED: BUPIVAcaine 0.5% inj/PF 30 ML ONE (14:30)
--- NOTE | 2021-05-22 14:33 | NUR ---
blood sugar 45, patient asymptomatic. Called OR CRN. They will let us know if we need to push dextrose.
[2021-05-22] MEDS ORDERED: dextrose 50%-water 50ml dispensing syringe IV ONE (14:38)
[2021-05-22] MEDS ORDERED: dextrose 50%-water 50ml dispensing syringe IV STA (14:39)
[2021-05-22] MEDS ORDERED: ondansetron/PF 4mg/2ml inj IV PRN ×2 (14:45→17:15)
[2021-05-22] MEDS ORDERED: ringers solution, lacted 1,000 ML IV SCH (14:45)
[2021-05-22] MEDS ORDERED: morphine 2 MG/ML inj. syringe IV PRN ×2 (14:45→17:15)
[2021-05-22] MEDS ORDERED: hydrALAZINE 20mg/ml inj. IV PRN (14:45)
[2021-05-22] MEDS ORDERED: labetalol 20mg/4ml (5mg/ml) syringe IV PRN (14:45)
[2021-05-22] MEDS ORDERED: fentaNYL/PF 50MCG/1 ML 2ML syringe IV PRN ×2 (14:45)
--- NOTE | 2021-05-22 14:57 | NUR ---
OR came for pt. Called Recovery to give report. Pending patient return.
[2021-05-22] MEDS ORDERED: sugammadex 200mg/2ml injection IV ONE (15:09)
[2021-05-22] MEDS ORDERED: FENTANYL CITRATE/PF 50 MCG/1 ML VIAL ONE ×2 (15:12→16:34)
[2021-05-22] MEDS ORDERED: rocuronium 10mg/ml inj IV ONE (15:13)
[2021-05-22] MEDS ORDERED: ondansetron/PF 4mg/2ml inj ONE (15:13)
[2021-05-22] MEDS ORDERED: midazolam 1 mg/ML 2ml injection ONE (15:13)
[2021-05-22] MEDS ORDERED: sevoflurane 250ml liquid IH ONE (15:42)
[2021-05-22] MEDS ORDERED: etomidate 2mg/ml inj. ONE (15:42)
--- NOTE | 2021-05-22 16:24 | NUR ---
Pt going to [facility] Room # 2013. Called report to ROBERTO Alonso. All questions answered at this time.
[2021-05-22] MEDS ORDERED: BUPIVAcaine 0.5% inj/PF 30 ml vial IJ ONE (16:45)
--- NOTE | 2021-05-22 17:12 | NUR ---
Received from OR via hospital bed, accompanied by Anesthesiologist Dr. Mckenna and report given by Anesthesiolgist. Dressing to anterior proximal abdomen with drainage- anesthesiologist aware. distal dressing CDi as well as dresing to right lateral abdomen. CL in place. 10L mask. Unable to read Spo2- Dr. Mckenna aware. patient responding to verbal stimuli.
[2021-05-22] MEDS ORDERED: meperidine/PF 25mg/ml syringe IV PRN ×2 (17:15)
[2021-05-22] MEDS ORDERED: normal saline 1000ml 1,000 ML IV ONE (17:15)
[2021-05-22] MEDS ORDERED: morphine 4 MG/ML inj SYRINge IV PRN (17:15)
--- NOTE | 2021-05-22 17:52 | NUR ---
Patient report given to Pierre MEJIA. Patient transferred to ICU 2012. Bedside report given. Dressing reviewed, BG low preop, IV infiltrated to right arm preop. Sent with all belongings.
[2021-05-22] MEDS: morphine 4 MG/ML inj SYRINge IV PRN ×2 (18:05→20:09)
[2021-05-22] MEDS: HYDROcodone/acetaminophen 5mg/325mg tablet PO PRN (23:55)
[2021-05-23] VITALS (23 sets, daily range): BP systolic 82–130; BP diastolic 48–80
[2021-05-23] MEDS: VANCOMYCIN LEVEL IV SCH (02:47)
[2021-05-23 03:17] LABS: EOSINOPHILS # (AUTO) 0.3 X10'3 (0-0.9); EOSINOPHILS % (AUTO) 1.2 % (0-6); HEMATOCRIT 22.8 % (35.0-45.0); HEMOGLOBIN 7.4 g/dl (12.0-16.0); RED CELL DISTRIBUTION WIDTH 21.3 % (11.5-14.5)
[2021-05-23 03:19] LABS: BASOPHILS # (AUTO) 0.1 X10'3 (0-0.2); BASOPHILS % (AUTO) 0.5 % (0-1); LYMPHOCYTES # (AUTO) 1.5 X10'3 (1.1-4.8); LYMPHOCYTES % (AUTO) 5.8 % (21-51); MEAN CORPUSCULAR HEMOGLOBIN 27.7 PG (27.0-31.0); MEAN CORPUSCULAR HGB CONC 32.7 g/dL (33.0-36.5); MEAN CORPUSCULAR VOLUME 84.9 FL (78-98); MEAN PLATELET VOLUME 8.2 FL (7.4-10.4); MONOCYTES # (AUTO) 1.8 X10'3 (0-0.9); NEUTROPHILS # (AUTO) 21.9 X10'3 (1.8-7.7); NEUTROPHILS % (AUTO) 85.5 % (42-75); PLATELET COUNT 148 X10'3 (140-440); RED BLOOD COUNT 2.68 X10'6 (4.20-5.60)
[2021-05-23 03:37] LABS: ALANINE AMINOTRANSFERASE 249 U/L (12-78); ALBUMIN 0.7 G/DL (3.4-5.0); ALBUMIN/GLOBULIN RATIO 0.2 (1.1-1.5); ALKALINE PHOSPHATASE 118 IU/L (46-116); ANION GAP 15 (8-16); ASPARTATE AMINO TRANSFERASE 255 U/L (10-37); BILIRUBIN,TOTAL 3.2 MG/DL (0.1-1.0); BLOOD UREA NITROGEN 98 MG/DL (7-18); BUN/CREATININE RATIO 24.6 (6.6-38.0); CALCIUM 7.2 MG/DL (8.5-10.1); CHLORIDE 92 MMOL/L (99-107); CREATININE 3.98 MG/DL (0.40-0.90); GLUCOSE 91 MG/DL (70-104); POTASSIUM 4.6 MMOL/L (3.5-5.1); SODIUM 128 MMOL/L (135-145); TOTAL CARBON DIOXIDE 21.2 MMOL/L (24-32); TOTAL PROTEIN 4.2 G/DL (6.4-8.2); VANCOMYCIN,RANDOM 15.2 UG/ML; eGFR 12 ML/MIN
[2021-05-23 03:40] LABS: WHITE BLOOD COUNT 25.6 X10'3 (4.5-11.0)
[2021-05-23] MEDS: morphine 4 MG/ML inj SYRINge IV PRN (04:23)
[2021-05-23 06:07] LABS: PLATELET ESTIMATE NORMAL; TOTAL CELLS COUNTED 100
[2021-05-23 06:09] LABS: ANISOCYTOSIS 3+; ELLIPTOCYTES FEW; TARGET CELLS FEW
[2021-05-23 06:10] LABS: ACANTHOCYTES FEW; SCHISTOCYTES FEW; TEAR DROP CELLS FEW
[2021-05-23] MEDS: heparin 25,000 UNIT/250ml bag 250 ML IV SCH (06:45)
[2021-05-23] MEDS: K and/or MAG REPLACEMENT MC SCH ×2 (08:00→19:39)
[2021-05-23] MEDS: SODIUM ZIRCONIUM CYCLOSILICATE 10 GM POWD.PACK PO SCH (08:00)
[2021-05-23] MEDS ORDERED: potassium Cl 20 mEq SR tablet PO SCH (08:00)
[2021-05-23] MEDS: sevelamer carbonate 800mg tablet PO SCH ×3 (08:30→20:29)
[2021-05-23] MEDS: furosemide 40mg/4ml inj IV SCH (08:50)
[2021-05-23] MEDS: piperacillin/tazo 3.375gm/50ml 50 ML IV SCH ×2 (08:50→20:30)
[2021-05-23] MEDS: ondansetron/PF 4mg/2ml inj IV PRN (08:50)
[2021-05-23] MEDS: calcitriol 0.25mcg capsule PO SCH (08:56)
[2021-05-23] MEDS: oxybutynin 5mg tablet PO SCH (08:56)
[2021-05-23] MEDS: calcium carbonate 500mg tablet PO SCH ×3 (08:56→20:29)
[2021-05-23] MEDS: aspirin 81mg tab.chew PO SCH (08:56)
[2021-05-23] MEDS ORDERED: vancomycin inj 500 MG in normal saline 100ml IV soln 100 ML IV ONE (09:00)
--- NOTE | 2021-05-23 09:00 | NUR ---
Per Dr. Plunkett, GIRISH Everettur medication and hold [facility]. aware of electrolytes.
[2021-05-23] MEDS ORDERED: EPOETIN ALFA-EPBX 20,000 UNIT/ML 1 ML MDV SQ ONE (09:20)
[2021-05-23] MEDS: HYDROcodone/acetaminophen 5mg/325mg tablet PO PRN ×2 (09:58→20:30)
[2021-05-23] MEDS ORDERED: argatroban in NS 50mg/50ml 50 ML IV SCH (10:10)
[2021-05-23] MEDS ORDERED: MESSAGE TO NURSING PO ONE (10:10)
[2021-05-23] MEDS ORDERED: heparin 25,000 UNIT/250ml bag 250 ML IV SCH (13:20)
[2021-05-23] MEDS ORDERED: heparin 10,000 units/1 ML INJ IV PRN (13:20)
[2021-05-23] MEDS ORDERED: heparin 10,000 units/1 ML INJ IV ONE (13:20)
[2021-05-23] MEDS: apixaban 5mg tablet PO SCH ×2 (13:55→20:29)
[2021-05-23 14:24] LABS: HEMOGLOBIN 7.7 g/dl (12.0-16.0); MEAN PLATELET VOLUME 8.3 FL (7.4-10.4); MONOCYTES # (AUTO) 1.6 X10'3 (0-0.9)
[2021-05-23 14:26] LABS: BASOPHILS # (AUTO) 0.1 X10'3 (0-0.2); BASOPHILS % (AUTO) 0.4 % (0-1); EOSINOPHILS # (AUTO) 0.4 X10'3 (0-0.9); EOSINOPHILS % (AUTO) 1.2 % (0-6); HEMATOCRIT 23.5 % (35.0-45.0); LYMPHOCYTES # (AUTO) 1.5 X10'3 (1.1-4.8); LYMPHOCYTES % (AUTO) 4.9 % (21-51); MEAN CORPUSCULAR HEMOGLOBIN 27.5 PG (27.0-31.0); MEAN CORPUSCULAR HGB CONC 32.5 g/dL (33.0-36.5); MEAN CORPUSCULAR VOLUME 84.4 FL (78-98); MONOCYTES % (AUTO) 5.5 % (2-12); NEUTROPHILS # (AUTO) 26.3 X10'3 (1.8-7.7); PLATELET COUNT 167 X10'3 (140-440); RED BLOOD COUNT 2.79 X10'6 (4.20-5.60); RED CELL DISTRIBUTION WIDTH 21.4 % (11.5-14.5)
[2021-05-23 14:38] LABS: WHITE BLOOD COUNT 29.9 X10'3 (4.5-11.0)
--- NOTE | 2021-05-23 15:40 | NUR ---
Reassessment: Pt s/p cholecystectomy and found to have a cirrhotic liver per EMR. Pt is currently on renal diet and eating poorly, documented w/ mostly 25% PO intake since last nutrition assessment 05/18 and not meeting estimated nutrient needs. RD and regulatory internship obtained pt food preferences at bedside and discussed w/ dietary, see below. Pt stated that she has a good appetite, though at home typically scavenges for food. Pt reports having a hard time chewing meat at lunch and requested chopped meat. Currently on 2.0L HFNC and LBM 05/22 per EMR. Will continue to follow and make nutrition recommendations pending PO trends w/ updated food preferences. Recommendations: 1) Continue renal diet; consider liberalizing to regular if pt continues to require electrolyte replacement 2) [place] pt food preferences: chopped meat, oatmeal and toast WB, likes fruit, no cream of wheat, no fish 3) If PO intake does not improve, consider Nepro BIDBD; pt dislikes Nepro without the addition of chocolate syrup and prefers not to have it TID per d/w pt at previous admit 4) Routine Phos binder per MD 5) Bowel care per rx 6) Scaled weight this admit; weekly scaled weights thereafter Addendum: 05/23/21 at 1540 by Kirti Michael Tafe Registrar RD Amended: Links added. Addendum: 05/23/21 at [address] I have reviewed and agree with note by Tafe Registrar. JENNY Stanford
--- NOTE | 2021-05-23 17:04 | NUR ---
WBC 29.9; Dr. Baker paged. No new orders at this time.
--- NOTE | 2021-05-23 18:11 | NUR ---
Problems reprioritized. Patient report given, questions answered & plan of care reviewed with REY MEJIA.
[2021-05-24] VITALS (10 sets, daily range): BP systolic 80–104; BP diastolic 39–68
[2021-05-24] MEDS: VANCOMYCIN LEVEL IV SCH (03:00)
[2021-05-24] MEDS: HYDROcodone/acetaminophen 5mg/325mg tablet PO PRN (05:10)
[2021-05-24 06:18] LABS: EOSINOPHILS # (AUTO) 0.3 X10'3 (0-0.9)
[2021-05-24 06:21] LABS: BASOPHILS # (AUTO) 0.2 X10'3 (0-0.2); BASOPHILS % (AUTO) 0.6 % (0-1); EOSINOPHILS % (AUTO) 0.9 % (0-6); LYMPHOCYTES # (AUTO) 1.5 X10'3 (1.1-4.8); LYMPHOCYTES % (AUTO) 4.6 % (21-51); MEAN CORPUSCULAR HEMOGLOBIN 28.2 PG (27.0-31.0); MEAN CORPUSCULAR VOLUME 85.6 FL (78-98); MEAN PLATELET VOLUME 8.3 FL (7.4-10.4); MONOCYTES # (AUTO) 1.7 X10'3 (0-0.9); MONOCYTES % (AUTO) 5.2 % (2-12); NEUTROPHILS # (AUTO) 28.4 X10'3 (1.8-7.7); NEUTROPHILS % (AUTO) 88.7 % (42-75); PLATELET COUNT 164 X10'3 (140-440); RED BLOOD COUNT 2.49 X10'6 (4.20-5.60); RED CELL DISTRIBUTION WIDTH 21.2 % (11.5-14.5)
--- NOTE | 2021-05-24 06:32 | NUR ---
Problems reprioritized. Patient report given, questions answered & plan of care reviewed with STEPHANY MEJIA.
[2021-05-24 06:43] LABS: HEMATOCRIT 21.3 % (35.0-45.0)
[2021-05-24 06:51] LABS: ALANINE AMINOTRANSFERASE 260 U/L (12-78); ALBUMIN 0.7 G/DL (3.4-5.0); ALBUMIN/GLOBULIN RATIO 0.2 (1.1-1.5); ALKALINE PHOSPHATASE 148 IU/L (46-116); ANION GAP 17 (8-16); ASPARTATE AMINO TRANSFERASE 280 U/L (10-37); BILIRUBIN,TOTAL 3.5 MG/DL (0.1-1.0); BLOOD UREA NITROGEN 102 MG/DL (7-18); BUN/CREATININE RATIO 23.3 (6.6-38.0); CALCIUM 7.1 MG/DL (8.5-10.1); CHLORIDE 91 MMOL/L (99-107); CREATININE 4.38 MG/DL (0.40-0.90); MAGNESIUM 1.5 MG/DL (1.5-2.4); PHOSPHORUS 7.2 MG/DL (2.3-4.5); POTASSIUM 5.1 MMOL/L (3.5-5.1); SODIUM 129 MMOL/L (135-145); TOTAL CARBON DIOXIDE 21.2 MMOL/L (24-32); VANCOMYCIN,RANDOM 20.9 UG/ML; eGFR 10 ML/MIN
--- NOTE | 2021-05-24 06:53 | NUR ---
Page sent Page Accepted Message: [id number]- Jennifer Patterson. admitted for sepsis, recent choley. transferred from ICU. critical value of WBC 32.0, hgb 7.0. Please advise. Nayely [phone]
[2021-05-24 07:09] LABS: ANISOCYTOSIS 3+; MICROCYTOSIS 1+; PLATELET ESTIMATE NORMAL; TOTAL CELLS COUNTED 100
[2021-05-24 07:10] LABS: GLUCOSE 36 MG/DL (70-104); POIKILOCYTOSIS FEW; POLYCHROMASIA FEW; TARGET CELLS 1+
[2021-05-24] MEDS: K and/or MAG REPLACEMENT MC SCH ×2 (08:00→19:42)
[2021-05-24] MEDS: piperacillin/tazo 3.375gm/50ml 50 ML IV SCH ×2 (08:41→19:42)
[2021-05-24] MEDS: oxybutynin 5mg tablet PO SCH (08:41)
[2021-05-24] MEDS: sevelamer carbonate 800mg tablet PO SCH ×3 (08:42→17:30)
[2021-05-24] MEDS: apixaban 5mg tablet PO SCH ×2 (08:42→19:43)
[2021-05-24] MEDS: furosemide 40mg/4ml inj IV SCH ×2 (08:42→16:16)
[2021-05-24] MEDS: calcitriol 0.25mcg capsule PO SCH (08:42)
[2021-05-24] MEDS: aspirin 81mg tab.chew PO SCH (08:42)
[2021-05-24] MEDS: calcium carbonate 500mg tablet PO SCH ×3 (08:42→17:30)
[2021-05-24] MEDS ORDERED: SODIUM ZIRCONIUM CYCLOSILICATE 10 GM POWD.PACK PO SCH (10:50)
[2021-05-24 18:24] LABS: HEMATOCRIT 25.7 % (35.0-45.0); HEMOGLOBIN 8.3 g/dl (12.0-16.0); MEAN CORPUSCULAR HEMOGLOBIN 28.4 PG (27.0-31.0); MEAN CORPUSCULAR HGB CONC 32.4 g/dL (33.0-36.5); MEAN CORPUSCULAR VOLUME 87.5 FL (78-98); MEAN PLATELET VOLUME 8.3 FL (7.4-10.4); PLATELET COUNT 169 X10'3 (140-440); RED BLOOD COUNT 2.94 X10'6 (4.20-5.60)
--- NOTE | 2021-05-24 18:25 | NUR ---
Patient in room U 3021. I have received report from Nayely Priest and had the opportunity to ask questions and assume patient care. Addendum: 05/24/21 at 1927 by Tasha Rock RN Amended: Links added.
[2021-05-24 18:32] LABS: WHITE BLOOD COUNT 30.2 X10'3 (4.5-11.0)
--- NOTE | 2021-05-24 18:34 | NUR ---
page sent Message: [id number]. Jennifer jeremiah. FYI critical WBC is 30.2, this is down from 32.0 this morning. thank you [phone] Nayely Custom Responses: Transaction number: [id number]
--- NOTE | 2021-05-24 22:30 | NUR ---
pt not eating fed her nepro shake and got her to take her sherbert with 2 bites of chicken.
[2021-05-25] MEDS: furosemide 40mg/4ml inj IV SCH ×5 (00:48→23:48)
--- NOTE | 2021-05-25 01:10 | NUR ---
encouraging pt yo eat bites of food when in the room. pt poor short term memory easily distracted and needs frequent reminders.
[2021-05-25] MEDS: VANCOMYCIN LEVEL IV SCH (03:00)
[2021-05-25 03:30] VITALS: BP 112/49
--- NOTE | 2021-05-25 04:30 | NUR ---
labs drawn from left IJ and flushed capped and pt positioned in bed. remains very edematous all over, took some po fluids. last snack was at 0035. tolerated well.
[2021-05-25 06:00] VITALS: BP 111/54
--- NOTE | 2021-05-25 06:24 | NUR ---
Problems reprioritized. Patient report given, questions answered & plan of care reviewed with Nayely Priest. Addendum: 05/25/21 at 0624 by Tasha Rock RN Amended: Links added.
[2021-05-25 06:27] LABS: BASOPHILS # (AUTO) 0.2 X10'3 (0-0.2); BASOPHILS % (AUTO) 0.7 % (0-1); EOSINOPHILS # (AUTO) 0.2 X10'3 (0-0.9); EOSINOPHILS % (AUTO) 0.7 % (0-6); HEMOGLOBIN 7.3 g/dl (12.0-16.0); LYMPHOCYTES # (AUTO) 1.7 X10'3 (1.1-4.8); LYMPHOCYTES % (AUTO) 6.5 % (21-51); MEAN CORPUSCULAR HEMOGLOBIN 28.6 PG (27.0-31.0); MEAN CORPUSCULAR HGB CONC 33.4 g/dL (33.0-36.5); MEAN CORPUSCULAR VOLUME 85.5 FL (78-98); MEAN PLATELET VOLUME 8.1 FL (7.4-10.4); MONOCYTES # (AUTO) 2.4 X10'3 (0-0.9); MONOCYTES % (AUTO) 9.4 % (2-12); NEUTROPHILS # (AUTO) 21.3 X10'3 (1.8-7.7); NEUTROPHILS % (AUTO) 82.7 % (42-75); PLATELET COUNT 162 X10'3 (140-440); RED BLOOD COUNT 2.55 X10'6 (4.20-5.60); RED CELL DISTRIBUTION WIDTH 18.6 % (11.5-14.5)
[2021-05-25 06:36] LABS: HEMATOCRIT 21.8 % (35.0-45.0); WHITE BLOOD COUNT 25.7 X10'3 (4.5-11.0)
--- NOTE | 2021-05-25 06:57 | NUR ---
Patient was transfused 1 unit yesterday 05/24 for hgb 7.0, went to 8.3 last night. she's now down to 7.3 this morning. MD notified. No new orders.
[2021-05-25 06:59] LABS: ALANINE AMINOTRANSFERASE 256 U/L (12-78); ALBUMIN 0.7 G/DL (3.4-5.0); ALBUMIN/GLOBULIN RATIO 0.2 (1.1-1.5); ALKALINE PHOSPHATASE 150 IU/L (46-116); ANION GAP 11 (8-16); ASPARTATE AMINO TRANSFERASE 249 U/L (10-37); BILIRUBIN,TOTAL 3.9 MG/DL (0.1-1.0); BLOOD UREA NITROGEN 100 MG/DL (7-18); BUN/CREATININE RATIO 21.6 (6.6-38.0); CALCIUM 6.7 MG/DL (8.5-10.1); CHLORIDE 88 MMOL/L (99-107); CREATININE 4.62 MG/DL (0.40-0.90); GLUCOSE 110 MG/DL (70-104); MAGNESIUM 1.6 MG/DL (1.5-2.4); POTASSIUM 5.1 MMOL/L (3.5-5.1); SODIUM 121 MMOL/L (135-145); TOTAL PROTEIN 3.9 G/DL (6.4-8.2); eGFR 10 ML/MIN
[2021-05-25 07:14] LABS: TOTAL CELLS COUNTED 100
[2021-05-25 07:15] LABS: ANISOCYTOSIS 2+; MICROCYTOSIS 1+; PLATELET ESTIMATE NORMAL; POIKILOCYTOSIS FEW; TARGET CELLS FEW
[2021-05-25] MEDS: K and/or MAG REPLACEMENT MC SCH ×2 (08:00→20:00)
[2021-05-25] MEDS: oxybutynin 5mg tablet PO SCH (08:58)
[2021-05-25] MEDS: calcitriol 0.25mcg capsule PO SCH (08:58)
[2021-05-25] MEDS: calcium carbonate 500mg tablet PO SCH ×3 (08:58→17:31)
[2021-05-25] MEDS: apixaban 5mg tablet PO SCH ×2 (08:58→20:43)
[2021-05-25] MEDS: piperacillin/tazo 3.375gm/50ml 50 ML IV SCH ×2 (08:59→20:44)
[2021-05-25] MEDS: sevelamer carbonate 800mg tablet PO SCH ×3 (08:59→17:31)
[2021-05-25] MEDS: aspirin 81mg tab.chew PO SCH (08:59)
[2021-05-25 09:14] LABS: VANCOMYCIN,RANDOM 18.8 UG/ML
[2021-05-25 11:00] VITALS: BP 102/57
[2021-05-25 11:45] LABS: HEMATOCRIT 25.6 % (35.0-45.0); HEMOGLOBIN 8.4 g/dl (12.0-16.0); MEAN CORPUSCULAR HEMOGLOBIN 28.4 PG (27.0-31.0); MEAN CORPUSCULAR VOLUME 86.2 FL (78-98); MEAN PLATELET VOLUME 8.3 FL (7.4-10.4); PLATELET COUNT 189 X10'3 (140-440); RED BLOOD COUNT 2.97 X10'6 (4.20-5.60); RED CELL DISTRIBUTION WIDTH 18.5 % (11.5-14.5)
[2021-05-25 11:48] LABS: WHITE BLOOD COUNT 27.4 X10'3 (4.5-11.0)
--- NOTE | 2021-05-25 12:54 | NUR ---
Paged Dr. Baker regarding patient with bright red blood in stool. And most recent H&H levels. Message: 3021, Leonardo Jennifer. Pt has moderate bright red blood in stool, with a large clot. We tal an H&H this morning Hgb 8.4, [id number]
--- NOTE | 2021-05-25 14:03 | NUR ---
Nutrition consult re: "pt not eating needs Nepro added to each tray plus one more". Noted diet order has been changed to request moist chopped food with Nepro QID. Attempted TC with RN however RN unavailable. Pt has just recently been seen at bedside where food preferences and preferred texture modification were obtained and d/w dietary, see below. Pt continues eating poorly with mostly 25% PO intake however Nepro QID is not appropriate as that would exceed patient's estimated nutrient needs and pt not receiving dialysis at this time. In addition to this, pt has already reported a dislike to Nepro and will not consume it at that frequency. Should pt receive Nepro she prefers it mixed with chocolate, however this is not appropriate at this time given elevated phosphorus. Noted pt was started on a routine Phos binder 05/23. Will monitor trends in serum Phos, renal status, potential dialysis, and PO intake and make recommendations as appropriate. IF PO intake does not improve pt would benefit from NGT placement to meet estimated nutrient needs. Recommendations: 1) Continue renal diet; consider liberalizing to regular if pt continues to require electrolyte replacement 2) [place] pt food preferences: chopped meat, oatmeal and toast WB; likes fruit; dislikes cream of wheat and fish fish 3) If PO intake does not improve, consider Nepro BIDBD; pt dislikes Nepro without the addition of chocolate syrup and prefers not to have it TID per d/w pt at previous admit 4) Consider NGT placement for TF IF PO intake does not improve 5) Routine Phos binder per MD 6) Bowel care per rx 7) Scaled weight this admit; weekly scaled weights thereafter Addendum: 05/25/21 at [address] Amended: Links added.
[2021-05-25 18:00] VITALS: BP_SYST 100; BP_SYST 98; BP_DIAS 57; BP_DIAS 64
[2021-05-25] MEDS: HYDROcodone/acetaminophen 5mg/325mg tablet PO PRN (20:43)
[2021-05-25 22:00] VITALS: BP 98/51
[2021-05-26] VITALS (21 sets, daily range): BP systolic 66–143; BP diastolic 39–111
--- NOTE | 2021-05-26 02:30 | NUR ---
RUQ puncture site oozing copious serosanguineous fluid, old dressing removed and ostomy bag in place.
[2021-05-26] MEDS: HYDROcodone/acetaminophen 5mg/325mg tablet PO PRN ×2 (03:48→10:11)
[2021-05-26] MEDS: VANCOMYCIN LEVEL IV SCH (03:53)
--- NOTE | 2021-05-26 04:05 | NUR ---
Dr Carrasco notified of pt having increased HR of 137 with A Flutter rhythm. also notified that it happened post cleaning and turning the patient; continue to monitor pt.
[2021-05-26 04:30] LABS: ALANINE AMINOTRANSFERASE 248 U/L (12-78); ALBUMIN 0.7 G/DL (3.4-5.0); ALKALINE PHOSPHATASE 167 IU/L (46-116); ANION GAP 12 (8-16); ASPARTATE AMINO TRANSFERASE 207 U/L (10-37); BILIRUBIN,TOTAL 4.1 MG/DL (0.1-1.0); BLOOD UREA NITROGEN 104 MG/DL (7-18); BUN/CREATININE RATIO 21.8 (6.6-38.0); CALCIUM 7.2 MG/DL (8.5-10.1); CHLORIDE 88 MMOL/L (99-107); CREATININE 4.77 MG/DL (0.40-0.90); GLUCOSE 97 MG/DL (70-104); MAGNESIUM 1.7 MG/DL (1.5-2.4); POTASSIUM 5.2 MMOL/L (3.5-5.1); SODIUM 124 MMOL/L (135-145); TOTAL CARBON DIOXIDE 23.8 MMOL/L (24-32); VANCOMYCIN,RANDOM 17.7 UG/ML; eGFR 9 ML/MIN
[2021-05-26 04:33] LABS: EOSINOPHILS # (AUTO) 0.3 X10'3 (0-0.9); EOSINOPHILS % (AUTO) 1.1 % (0-6); LYMPHOCYTES # (AUTO) 2.2 X10'3 (1.1-4.8); LYMPHOCYTES % (AUTO) 8.6 % (21-51)
[2021-05-26 04:35] LABS: BASOPHILS # (AUTO) 0.1 X10'3 (0-0.2); BASOPHILS % (AUTO) 0.6 % (0-1); HEMATOCRIT 24.1 % (35.0-45.0); HEMOGLOBIN 7.9 g/dl (12.0-16.0); MEAN CORPUSCULAR HEMOGLOBIN 28.2 PG (27.0-31.0); MEAN CORPUSCULAR HGB CONC 32.8 g/dL (33.0-36.5); MEAN CORPUSCULAR VOLUME 86.1 FL (78-98); MEAN PLATELET VOLUME 8.2 FL (7.4-10.4); MONOCYTES # (AUTO) 1.4 X10'3 (0-0.9); MONOCYTES % (AUTO) 5.6 % (2-12); NEUTROPHILS # (AUTO) 21.7 X10'3 (1.8-7.7); NEUTROPHILS % (AUTO) 84.1 % (42-75); PLATELET COUNT 186 X10'3 (140-440); RED BLOOD COUNT 2.79 X10'6 (4.20-5.60); RED CELL DISTRIBUTION WIDTH 18.6 % (11.5-14.5)
[2021-05-26 04:37] LABS: WHITE BLOOD COUNT 25.8 X10'3 (4.5-11.0)
[2021-05-26 05:01] LABS: ALBUMIN/GLOBULIN RATIO 0.2 (1.1-1.5); PHOSPHORUS 5.4 MG/DL (2.3-4.5); TOTAL PROTEIN 5.3 G/DL (6.4-8.2)
--- NOTE | 2021-05-26 05:30 | NUR ---
Pt's HR continues to be A flutter, pt denied any chest discomfort; continue to monitor pt for any symptoms
[2021-05-26 05:38] LABS: ANISOCYTOSIS 2+; PLATELET ESTIMATE NORMAL; TOTAL CELLS COUNTED 100
[2021-05-26 05:39] LABS: POLYCHROMASIA FEW; TARGET CELLS FEW
--- NOTE | 2021-05-26 06:30 | NUR ---
Patient in room PCU 3021. I have received report from Maribel MEJIA and had the opportunity to ask questions and assume patient care.
[2021-05-26] MEDS: K and/or MAG REPLACEMENT MC SCH ×2 (07:27→19:18)
--- NOTE | 2021-05-26 07:55 | NUR ---
Atrial fib page Message: Dr. Baker pt in room 3021A Leonardo Jennifer in atrial fib 130's; I was told she flipped into atrial fib around 0200 with no intervention; She doesn't have any antiarrhythmics this morning.; Last BP 127/82 HR is 136 currently. [facility]
[2021-05-26] MEDS: furosemide 40mg/4ml inj IV SCH ×3 (08:00→15:29)
[2021-05-26] MEDS: calcitriol 0.25mcg capsule PO SCH (08:23)
[2021-05-26] MEDS: aspirin 81mg tab.chew PO SCH (08:23)
[2021-05-26] MEDS: oxybutynin 5mg tablet PO SCH (08:24)
[2021-05-26] MEDS: apixaban 5mg tablet PO SCH ×2 (08:24→20:00)
[2021-05-26] MEDS: calcium carbonate 500mg tablet PO SCH ×3 (08:33→17:54)
[2021-05-26] MEDS: piperacillin/tazo 3.375gm/50ml 50 ML IV SCH ×2 (08:33→19:50)
[2021-05-26] MEDS: sevelamer carbonate 800mg tablet PO SCH ×3 (08:33→17:54)
--- NOTE | 2021-05-26 10:56 | NUR ---
Low BP page Message: Dr. Baker patient in room 3021 Leonardo Jennifer BP is now 75/50 heart rate still irregular in the 130's; [facility]
--- NOTE | 2021-05-26 11:00 | NUR ---
Verbal order Per telephone order from Dr. Baker place order for 500cc NS bolus. Verbal order to give amio bolus and start [facility]tt [facility]
[2021-05-26] MEDS ORDERED: normal saline 500ml IV soln 500 ML IV ONE (11:05)
[2021-05-26] MEDS ORDERED: amiodarone 150mg/dext, iso-os 100 ML IV ONE (11:05)
--- NOTE | 2021-05-26 11:30 | NUR ---
Low BP Verbal order to give second 500cc bolus of NS for low BP Luz Marina PCU
--- NOTE | 2021-05-26 11:30 | NUR ---
Also verbal order to start patient on NS @ 50ml/hr from Dr. Baker
[2021-05-26] MEDS ORDERED: normal saline 500ml IV soln 500 ML IV SCH (11:50)
[2021-05-26] MEDS: amiodarone/D5 360MG/200ML BAG 200 ML IV SCH ×2 (12:06→17:08)
--- NOTE | 2021-05-26 12:19 | NUR ---
Pt. received a total bolus of 1,000ml of NS. Patient received 150mg bolus of Amio, patient started on amio gtt at 33ml/hr; Maintenance fluids started at 50ml/ hr per protocol. [facility]. [facility]
--- NOTE | 2021-05-26 12:41 | NUR ---
Page to MD Message: Dr. Baker patient in room 3021 Leonardo, Jennifer BP is still low after 1,000ml bolus of NS; Last BP is 76/56 manually; Chalino put ICU on board with her. Luz Marina PCU
[2021-05-26] MEDS: normal saline 1000ml 1,000 ML IV SCH (12:44)
--- NOTE | 2021-05-26 15:24 | NUR ---
Lasix Verbal order from Dr. Baker to hold lasix due to low BP Luz Marina PCU
--- NOTE | 2021-05-26 15:47 | NUR ---
Message: BETTIE ON TELE@[phone], CAN YOU CALL ME I AM VERY CONCERNED REGARDING 3021. PRESSURES VERY SOFT, THX
--- NOTE | 2021-05-26 16:03 | NUR ---
Per Dr Baker via telephone, infuse 250ml normal saline bolus due to low blood pressure.
[2021-05-26] MEDS ORDERED: normal saline 1000ml 1,000 ML IV ONE ×2 (16:10→17:00)
--- NOTE | 2021-05-26 16:15 | NUR ---
250cc bolus infusing. Will continue to monitor per Samuel
--- NOTE | 2021-05-26 16:44 | NUR ---
Low BP Message: Dr. Baker pt in room 3021A [facility] BP is 68/40 manually post 250cc NS bolus. Luz Marina PCU Custom Responses: promotional table spacer Transaction number: [id number]
--- NOTE | 2021-05-26 16:50 | NUR ---
Telephone order from Dr. Baker to give another 250cc bolus of NS for BP of 68/39 and continue to monitor. Luz Marina LEMA Addendum: 05/26/21 at 1659 by Luz Marina Jamison - Traveler RN Telephone order to hold night time dose of lasix due to low BP Luz Marina LEMA
[2021-05-26] MEDS: NUT.TX.IMP.RENAL FXN,LAC-REDUC (Nepro) 237 ML VANILLA PO SCH (18:00)
--- NOTE | 2021-05-26 18:25 | NUR ---
Problems reprioritized. Patient report given to Maribel, questions answered & plan of care reviewed with .
--- NOTE | 2021-05-26 19:15 | NUR ---
Found pt bleeding from her nose, pt is on face mask with humidifier; ice pack applied. pt encouraged to keep her head up. Generalized swelling noted. Low BP 84/50. Amiodarone drips infusing via left central line.
--- NOTE | 2021-05-26 20:00 | NUR ---
Dr Hinds notified of pt' status and and blood culture positive results drawn on 05/26.
[2021-05-26] MEDS ORDERED: NORepinephrine inj. 8 MG in dextrose 5%-water 242 ML IV SCH (20:30)
--- NOTE | 2021-05-26 20:30 | NUR ---
Pt on the monitoring manager transferred to ICU in stable condition.
[2021-05-26] MEDS ORDERED: NORepinephrine 8mg/ 250ml NS 250 ML IV ONE (21:22)
--- NOTE | 2021-05-26 22:00 | NUR ---
PATIENT IS ALERT AND ORIENTED X4 NO DISTRESS NOTED. NO C/O PAIN AT THIS TIME. BLEED NOTED TO NOSE THAT PATIENT SAID STARTED DURING THE DAY. FULL ASSESSMENT COMPLETED AD PATIENT REPOSITIONED IN BED TO HELP WITH PAIN TO BUTTOCKS. NON-BLANCHABLE AREA NOTED TO SACRUM AND OPEN WOUNDS TO BUTTOCKS BILATERALLY. DRESSINGS APPLIED. PATIENT NOT TO MOVE ALL LIMBS BUT DOES C/O OF WEAKNESS. SCDS APPLIED BUT PATIENT REFUSED RO HAVE PILLOWS HEELS LIFTED. LEVO AND ALBUMIN STARTED PER MD ORDERS.
[2021-05-26 22:07] LABS: ABG BASE EXCESS -6.4 mmol/L (-2.0-2.0); ABG HCO3 18.1 mmol/L (22.0-26.0); ABG OXYGEN SATURATION 89.6 % (94-97); ABG PO2 (T) 61.7 mmHg (75.0-100.0); ALLEN'S TEST POSITIVE; FCOHb 0.4 % (0.0-3.9); FLOW 6 L/min; FMetHb 0.3 % (0.0-1.5); PATIENT TEMPERATURE 36.4; TOTAL HEMOGLOBIN 7.9 G/dl (12.0-16.0)
[2021-05-26] MEDS: NORepinephrine 8mg/ 250ml NS 250 ML IV SCH (22:10)
[2021-05-26] MEDS ORDERED: albumin (Human) 5% 250ml 250 ML IV ONE ×2 (22:45→23:50)
[2021-05-27] VITALS (27 sets, daily range): BP systolic 80–158; BP diastolic 41–75
[2021-05-27] MEDS: furosemide 40mg/4ml inj IV SCH ×3 (00:28→16:00)
[2021-05-27] MEDS: HYDROcodone/acetaminophen 5mg/325mg tablet PO PRN ×2 (00:28→22:09)
[2021-05-27] MEDS: VANCOMYCIN LEVEL IV SCH (02:26)
[2021-05-27 02:43] LABS: BASOPHILS # (AUTO) 0.1 X10'3 (0-0.2); BASOPHILS % (AUTO) 0.3 % (0-1); EOSINOPHILS # (AUTO) 0.2 X10'3 (0-0.9); EOSINOPHILS % (AUTO) 0.6 % (0-6); LYMPHOCYTES # (AUTO) 1.1 X10'3 (1.1-4.8); LYMPHOCYTES % (AUTO) 4.2 % (21-51); MEAN CORPUSCULAR HEMOGLOBIN 28.3 PG (27.0-31.0); MEAN CORPUSCULAR HGB CONC 32.4 g/dL (33.0-36.5); MEAN CORPUSCULAR VOLUME 87.5 FL (78-98); MEAN PLATELET VOLUME 8.2 FL (7.4-10.4); MONOCYTES # (AUTO) 1.9 X10'3 (0-0.9); MONOCYTES % (AUTO) 7.3 % (2-12); NEUTROPHILS # (AUTO) 22.4 X10'3 (1.8-7.7); NEUTROPHILS % (AUTO) 87.6 % (42-75); PLATELET COUNT 176 X10'3 (140-440); RED BLOOD COUNT 2.23 X10'6 (4.20-5.60); RED CELL DISTRIBUTION WIDTH 18.6 % (11.5-14.5)
[2021-05-27 02:57] LABS: WHITE BLOOD COUNT 25.6 X10'3 (4.5-11.0)
[2021-05-27 02:58] LABS: HEMATOCRIT 19.5 % (35.0-45.0); HEMOGLOBIN 6.3 g/dl (12.0-16.0)
[2021-05-27 03:08] LABS: ALANINE AMINOTRANSFERASE 203 U/L (12-78); ALBUMIN 1.1 G/DL (3.4-5.0); ALKALINE PHOSPHATASE 151 IU/L (46-116); ANION GAP 15 (8-16); ASPARTATE AMINO TRANSFERASE 158 U/L (10-37); BILIRUBIN,TOTAL 4.2 MG/DL (0.1-1.0); BLOOD UREA NITROGEN 96 MG/DL (7-18); BUN/CREATININE RATIO 19.7 (6.6-38.0); CALCIUM 7.5 MG/DL (8.5-10.1); CHLORIDE 87 MMOL/L (99-107); CREATININE 4.88 MG/DL (0.40-0.90); GLUCOSE 119 MG/DL (70-104); MAGNESIUM 1.6 MG/DL (1.5-2.4); POTASSIUM 5.2 MMOL/L (3.5-5.1); SODIUM 124 MMOL/L (135-145); TOTAL CARBON DIOXIDE 21.6 MMOL/L (24-32); VANCOMYCIN,RANDOM 14.9 UG/ML; eGFR 9 ML/MIN
[2021-05-27 03:24] LABS: PHOSPHORUS 5.6 MG/DL (2.3-4.5); TOTAL PROTEIN 4.6 G/DL (6.4-8.2)
[2021-05-27 03:25] LABS: ALBUMIN/GLOBULIN RATIO 0.3 (1.1-1.5)
--- NOTE | 2021-05-27 04:00 | NUR ---
CRITICAL LABS CALLED TO MD SEE EMR FOR ORDERS. ORDERS FOR BLOOD TRANSFUSION PLACED AND DUE TO TRANSFUSE DURING SCHEDULED HD
[2021-05-27] MEDS: amiodarone/D5 360MG/200ML BAG 200 ML IV SCH ×3 (04:15→11:21)
[2021-05-27 05:29] LABS: ANISOCYTOSIS 2+; NUCLEATED RED BLOOD CELLS 1 /100WBC (0-0); PLATELET ESTIMATE NORMAL; TOTAL CELLS COUNTED 100
[2021-05-27 05:30] LABS: HYPOCHROMASIA 1+; POLYCHROMASIA FEW; STOMATOCYTES FEW; TARGET CELLS FEW
--- NOTE | 2021-05-27 06:30 | NUR ---
Problems prioritized. Patient report given, questions answered & plan of care reviewed
[2021-05-27] MEDS ORDERED: heparin 1,000unit/ml 10ml vial 10 ML IV ONE (08:00)
[2021-05-27] MEDS: K and/or MAG REPLACEMENT MC SCH ×2 (08:00→18:31)
[2021-05-27] MEDS ORDERED: normal saline 1000ml 250 ML IV PRN (08:00)
[2021-05-27] MEDS ORDERED: heparin 1,000 units/ml 10ml inj HE ONE ×2 (08:00)
[2021-05-27] MEDS: NUT.TX.IMP.RENAL FXN,LAC-REDUC (Nepro) 237 ML VANILLA PO SCH ×3 (08:00→18:00)
[2021-05-27] MEDS ORDERED: EPOETIN ALFA-EPBX 20,000 UNIT/ML 1 ML MDV IV ONE (08:00)
[2021-05-27] MEDS: sevelamer carbonate 800mg tablet PO SCH ×3 (08:30→18:35)
[2021-05-27] MEDS: oxybutynin 5mg tablet PO SCH (08:34)
[2021-05-27] MEDS: calcium carbonate 500mg tablet PO SCH ×3 (08:34→18:35)
[2021-05-27] MEDS: aspirin 81mg tab.chew PO SCH (08:34)
[2021-05-27] MEDS: apixaban 5mg tablet PO SCH (08:34)
[2021-05-27] MEDS: calcitriol 0.25mcg capsule PO SCH (08:34)
[2021-05-27] MEDS: piperacillin/tazo 3.375gm/50ml 50 ML IV SCH ×2 (10:13→20:26)
[2021-05-27] MEDS ORDERED: magnesium 4gm in 100ml NS 100 ML IV PRN (10:35)
[2021-05-27] MEDS ORDERED: Duosol 4k/NO Calcium 5,000 ML HE SCH (10:35)
[2021-05-27] MEDS ORDERED: potassium Cl 40MEQ/250ML bag 270 ML IV PRN (10:35)
[2021-05-27] MEDS ORDERED: calcium chloride inj. 1,000 MG in normal saline 100ml IV soln 100 ML IV PRN (10:35)
[2021-05-27] MEDS ORDERED: POTASSIUM CL IV PRN (10:40)
[2021-05-27] MEDS: ondansetron/PF 4mg/2ml inj IV PRN (11:04)
--- NOTE | 2021-05-27 11:22 | NUR ---
Reassessment: Pt continues to eat poorly on renal diet, mostly 25% of meals not meeting needs. Nepro TID was ordered yesterday 05/26, pending PO trends for ONS. Pt to start on CVVH per MD at rounds. Pt can benefit from supplemental TF to help meet nutrient needs if within POC as PO remains poor. LBM 05/25. Will continue to monitor. Recommendations: 1) Continue renal diet; consider liberalizing to regular if pt continues to require electrolyte replacement 2) [place] pt food preferences: chopped meat, oatmeal and toast WB; likes fruit; dislikes cream of wheat and fish fish 3) Nepro TID w/ chocolate per pt preference 4) Consider NGT placement for TF given poor PO intake 5) Routine Phos binder per MD 6) Bowel care per rx 7) Scaled weight this admit; weekly scaled weights thereafter Addendum: 05/27/21 at [address] Amended: Links added.
[2021-05-27] MEDS: DAPTOmycin inj. 500 MG in normal saline 100ml IV soln 100 ML IV SCH (12:13)
[2021-05-27 14:58] LABS: LDH,BODY FLUID 363 U/L
[2021-05-27 15:12] LABS: TOTAL PROTEIN,BODY FLUID < 2.0 G/DL
[2021-05-27 15:29] LABS: BFAPPEAR CLEAR; BFCOLOR YELLOW; BFVOLUME 52 ML
[2021-05-27 15:30] LABS: BF MESOTHELIAL CELLS FEW; BF RBC COUNT 119 /CU MM; BF WBC COUNT 176 /CU MM (0-1000); LYMPHOCYTES,BODY FLUID 25 %; MONOCYTES,BODY FLUID 15 %; NEUTROPHILS,BODY FLUID 60 %
--- NOTE | 2021-05-27 15:40 | NUR ---
late entry for 1025-- Dr. Plunkett at bedside to place right IJ GUILHERME, pt tolerated well, no ectopy noted, vss. cxr obtained.
[2021-05-27] MEDS ORDERED: SINCALIDE IV PRN (16:15)
[2021-05-27] MEDS ORDERED: NORMAL SALINE IV PRN (16:15)
[2021-05-27] MEDS: NORepinephrine 8mg/ 250ml NS 250 ML IV SCH (17:59)
--- NOTE | 2021-05-27 18:37 | NUR ---
Patient in room CICU 2013. I have received report from ROBERTO Vega and had the opportunity to ask questions and assume patient care.
[2021-05-27] MEDS ORDERED: heparin 10,000 units/1 ML INJ IV ONE (19:00)
[2021-05-27] MEDS ORDERED: heparin 10,000 units/1 ML INJ IV PRN (19:00)
[2021-05-27] MEDS ORDERED: heparin 25,000 UNIT/250ml bag 250 ML IV SCH (19:00)
[2021-05-27 19:52] LABS: BASOPHILS # (AUTO) 0.1 X10'3 (0-0.2); BASOPHILS % (AUTO) 0.4 % (0-1); EOSINOPHILS # (AUTO) 0.2 X10'3 (0-0.9); RED BLOOD COUNT 2.66 X10'6 (4.20-5.60)
[2021-05-27 19:54] LABS: EOSINOPHILS % (AUTO) 0.8 % (0-6); HEMATOCRIT 23.8 % (35.0-45.0); HEMOGLOBIN 7.9 g/dl (12.0-16.0); LYMPHOCYTES # (AUTO) 1.5 X10'3 (1.1-4.8); LYMPHOCYTES % (AUTO) 6.8 % (21-51); MEAN CORPUSCULAR HEMOGLOBIN 29.6 PG (27.0-31.0); MEAN CORPUSCULAR HGB CONC 33.1 g/dL (33.0-36.5); MEAN CORPUSCULAR VOLUME 89.5 FL (78-98); MEAN PLATELET VOLUME 8.5 FL (7.4-10.4); MONOCYTES # (AUTO) 2.1 X10'3 (0-0.9); MONOCYTES % (AUTO) 9.8 % (2-12); NEUTROPHILS # (AUTO) 17.9 X10'3 (1.8-7.7); NEUTROPHILS % (AUTO) 82.2 % (42-75); PLATELET COUNT 179 X10'3 (140-440); RED CELL DISTRIBUTION WIDTH 16.5 % (11.5-14.5); WHITE BLOOD COUNT 21.7 X10'3 (4.5-11.0)
[2021-05-27 19:57] LABS: ALBUMIN 0.9 G/DL (3.4-5.0); ANION GAP 13 (8-16); BLOOD UREA NITROGEN 108 MG/DL (7-18); BUN/CREATININE RATIO 22.6 (6.6-38.0); CHLORIDE 88 MMOL/L (99-107); CREATININE 4.78 MG/DL (0.40-0.90); GLUCOSE 103 MG/DL (70-104); MAGNESIUM 1.7 MG/DL (1.5-2.4); SODIUM 124 MMOL/L (135-145); TOTAL CARBON DIOXIDE 22.9 MMOL/L (24-32); eGFR 9 ML/MIN
[2021-05-27 20:00] LABS: APTT 71 SECONDS (22-32)
[2021-05-27 20:01] LABS: POTASSIUM 5.2 MMOL/L (3.5-5.1)
[2021-05-27 20:13] LABS: PHOSPHORUS 4.7 MG/DL (2.3-4.5)
[2021-05-27] MEDS: phenylephrine 1% (X-tra strg) 15ml nasal spray NS PRN (20:26)
[2021-05-27] MEDS: amiodarone 200mg tablet PO SCH (20:26)
[2021-05-27] MEDS: sucralfate 1 gm tablet PO SCH (20:26)
--- NOTE | 2021-05-27 20:30 | NUR ---
heparin gtt will not be started due to patient's PTT being 71, Dr. Plunkett aware.
--- NOTE | 2021-05-27 21:00 | NUR ---
CVVH started by electrician crane maintenance Sarah.
[2021-05-27 22:31] LABS: MEAN PLATELET VOLUME 8.4 FL (7.4-10.4); RED BLOOD COUNT 2.36 X10'6 (4.20-5.60)
[2021-05-27 22:33] LABS: BASOPHILS # (AUTO) 0.1 X10'3 (0-0.2); BASOPHILS % (AUTO) 0.4 % (0-1); EOSINOPHILS # (AUTO) 0.2 X10'3 (0-0.9); EOSINOPHILS % (AUTO) 0.8 % (0-6); LYMPHOCYTES # (AUTO) 1.6 X10'3 (1.1-4.8); LYMPHOCYTES % (AUTO) 7.3 % (21-51); MEAN CORPUSCULAR HEMOGLOBIN 29.6 PG (27.0-31.0); MEAN CORPUSCULAR HGB CONC 32.9 g/dL (33.0-36.5); MEAN CORPUSCULAR VOLUME 90.2 FL (78-98); NEUTROPHILS # (AUTO) 18.7 X10'3 (1.8-7.7); NEUTROPHILS % (AUTO) 82.5 % (42-75); PLATELET COUNT 143 X10'3 (140-440); RED CELL DISTRIBUTION WIDTH 17.1 % (11.5-14.5); WHITE BLOOD COUNT 22.6 X10'3 (4.5-11.0)
[2021-05-27 22:39] LABS: ALBUMIN 0.8 G/DL (3.4-5.0); ANION GAP 16 (8-16); BLOOD UREA NITROGEN 100 MG/DL (7-18); BUN/CREATININE RATIO 22.5 (6.6-38.0); CHLORIDE 90 MMOL/L (99-107); CREATININE 4.44 MG/DL (0.40-0.90); GLUCOSE 88 MG/DL (70-104); MAGNESIUM 1.6 MG/DL (1.5-2.4); PHOSPHORUS 4.4 MG/DL (2.3-4.5); POTASSIUM 5.2 MMOL/L (3.5-5.1); SODIUM 126 MMOL/L (135-145); TOTAL CARBON DIOXIDE 19.9 MMOL/L (24-32); eGFR 10 ML/MIN
[2021-05-27 22:42] LABS: HEMATOCRIT 21.3 % (35.0-45.0)
[2021-05-27] MEDS: LORazepam 0.5 MG tablet PO PRN (23:26)
[2021-05-27 23:53] LABS: MEAN PLATELET VOLUME 8.4 FL (7.4-10.4); PLATELET COUNT 156 X10'3 (140-440); RED BLOOD COUNT 2.38 X10'6 (4.20-5.60)
[2021-05-27 23:54] LABS: MEAN CORPUSCULAR HEMOGLOBIN 29.2 PG (27.0-31.0); MEAN CORPUSCULAR HGB CONC 32.4 g/dL (33.0-36.5); MEAN CORPUSCULAR VOLUME 90.1 FL (78-98); RED CELL DISTRIBUTION WIDTH 16.6 % (11.5-14.5); WHITE BLOOD COUNT 24.1 X10'3 (4.5-11.0)
[2021-05-28] VITALS (28 sets, daily range): BP systolic 80–135; BP diastolic 45–109
[2021-05-28 00:05] LABS: ALBUMIN 0.9 G/DL (3.4-5.0); ANION GAP 15 (8-16); BLOOD UREA NITROGEN 94 MG/DL (7-18); BUN/CREATININE RATIO 22.3 (6.6-38.0); CHLORIDE 91 MMOL/L (99-107); CREATININE 4.21 MG/DL (0.40-0.90); GLUCOSE 79 MG/DL (70-104); MAGNESIUM 1.8 MG/DL (1.5-2.4); POTASSIUM 5.2 MMOL/L (3.5-5.1); SODIUM 126 MMOL/L (135-145); eGFR 11 ML/MIN
[2021-05-28 00:08] LABS: PHOSPHORUS 4.3 MG/DL (2.3-4.5)
[2021-05-28 00:12] LABS: HEMATOCRIT 21.5 % (35.0-45.0)
[2021-05-28 00:38] LABS: BASOPHILS # (AUTO) 0.1 X10'3 (0-0.2); EOSINOPHILS # (AUTO) 0.1 X10'3 (0-0.9); MEAN CORPUSCULAR HEMOGLOBIN 29.4 PG (27.0-31.0); RED BLOOD COUNT 2.32 X10'6 (4.20-5.60)
[2021-05-28 00:39] LABS: BASOPHILS % (AUTO) 0.4 % (0-1); EOSINOPHILS % (AUTO) 0.5 % (0-6); LYMPHOCYTES # (AUTO) 1.1 X10'3 (1.1-4.8); LYMPHOCYTES % (AUTO) 5.1 % (21-51); MEAN CORPUSCULAR HGB CONC 32.4 g/dL (33.0-36.5); MEAN CORPUSCULAR VOLUME 90.6 FL (78-98); MEAN PLATELET VOLUME 8.2 FL (7.4-10.4); MONOCYTES # (AUTO) 1.9 X10'3 (0-0.9); MONOCYTES % (AUTO) 8.5 % (2-12); NEUTROPHILS # (AUTO) 19.4 X10'3 (1.8-7.7); NEUTROPHILS % (AUTO) 85.5 % (42-75); PLATELET COUNT 152 X10'3 (140-440); RED CELL DISTRIBUTION WIDTH 16.6 % (11.5-14.5); WHITE BLOOD COUNT 22.7 X10'3 (4.5-11.0)
[2021-05-28 00:42] LABS: HEMOGLOBIN 6.8 g/dl (12.0-16.0)
[2021-05-28 00:49] LABS: ALBUMIN 0.8 G/DL (3.4-5.0); ANION GAP 15 (8-16); BLOOD UREA NITROGEN 90 MG/DL (7-18); BUN/CREATININE RATIO 22.1 (6.6-38.0); CHLORIDE 92 MMOL/L (99-107); CREATININE 4.08 MG/DL (0.40-0.90); GLUCOSE 77 MG/DL (70-104); MAGNESIUM 1.7 MG/DL (1.5-2.4); SODIUM 125 MMOL/L (135-145); TOTAL CARBON DIOXIDE 17.9 MMOL/L (24-32); eGFR 11 ML/MIN
[2021-05-28 00:53] LABS: NUCLEATED RED BLOOD CELLS 3 /100WBC (0-0); TOTAL CELLS COUNTED 100
[2021-05-28 00:54] LABS: ANISOCYTOSIS 1+; PLATELET ESTIMATE NORMAL
[2021-05-28 00:55] LABS: HYPOCHROMASIA 1+; POLYCHROMASIA FEW; TARGET CELLS FEW
[2021-05-28 01:05] LABS: PHOSPHORUS 4.2 MG/DL (2.3-4.5)
[2021-05-28 01:06] LABS: ANISOCYTOSIS 1+; NUCLEATED RED BLOOD CELLS 4 /100WBC (0-0); PLATELET ESTIMATE NORMAL; TOTAL CELLS COUNTED 100
[2021-05-28 01:07] LABS: HYPOCHROMASIA 1+; POLYCHROMASIA 1+; TARGET CELLS FEW
[2021-05-28 01:43] LABS: EOSINOPHILS % (AUTO) 0.2 % (0-6); MEAN CORPUSCULAR HEMOGLOBIN 29.5 PG (27.0-31.0); MEAN PLATELET VOLUME 8.2 FL (7.4-10.4); MONOCYTES # (AUTO) 1.7 X10'3 (0-0.9)
[2021-05-28 01:45] LABS: BASOPHILS # (AUTO) 0.1 X10'3 (0-0.2); BASOPHILS % (AUTO) 0.4 % (0-1); LYMPHOCYTES # (AUTO) 1.1 X10'3 (1.1-4.8); LYMPHOCYTES % (AUTO) 4.7 % (21-51); MEAN CORPUSCULAR HGB CONC 32.4 g/dL (33.0-36.5); MONOCYTES % (AUTO) 7.4 % (2-12); NEUTROPHILS # (AUTO) 19.9 X10'3 (1.8-7.7); NEUTROPHILS % (AUTO) 87.3 % (42-75); PLATELET COUNT 152 X10'3 (140-440); RED BLOOD COUNT 2.35 X10'6 (4.20-5.60); RED CELL DISTRIBUTION WIDTH 16.6 % (11.5-14.5); WHITE BLOOD COUNT 22.8 X10'3 (4.5-11.0)
[2021-05-28 02:01] LABS: ALANINE AMINOTRANSFERASE 201 U/L (12-78); ALBUMIN 0.8 G/DL (3.4-5.0); ALKALINE PHOSPHATASE 158 IU/L (46-116); ANION GAP 14 (8-16); ASPARTATE AMINO TRANSFERASE 125 U/L (10-37); BLOOD UREA NITROGEN 87 MG/DL (7-18); BUN/CREATININE RATIO 22.6 (6.6-38.0); CALCIUM 6.7 MG/DL (8.5-10.1); CHLORIDE 93 MMOL/L (99-107); CREATININE 3.85 MG/DL (0.40-0.90); GLUCOSE 70 MG/DL (70-104); MAGNESIUM 1.9 MG/DL (1.5-2.4); POTASSIUM 5.1 MMOL/L (3.5-5.1); SODIUM 125 MMOL/L (135-145); TOTAL CARBON DIOXIDE 17.7 MMOL/L (24-32); eGFR 12 ML/MIN
[2021-05-28 02:15] LABS: HEMATOCRIT 21.4 % (35.0-45.0); HEMOGLOBIN 6.9 g/dl (12.0-16.0)
[2021-05-28 02:24] LABS: ALBUMIN/GLOBULIN RATIO 0.2 (1.1-1.5); PHOSPHORUS 3.9 MG/DL (2.3-4.5); TOTAL PROTEIN 4.2 G/DL (6.4-8.2)
--- NOTE | 2021-05-28 03:33 | NUR ---
nirmal ochoa applied to patient
[2021-05-28] MEDS: HYDROcodone/acetaminophen 5mg/325mg tablet PO PRN ×2 (03:39→22:09)
--- NOTE | 2021-05-28 04:32 | NUR ---
no pictures of wounds found in chart, though charted in physical assessment on 05/26. pictures of buttock and sacrum wounds taken and placed in chart.
[2021-05-28 05:13] LABS: ANISOCYTOSIS 1+; NUCLEATED RED BLOOD CELLS 2 /100WBC (0-0); PLATELET ESTIMATE NORMAL; TOTAL CELLS COUNTED 100
[2021-05-28 05:15] LABS: HYPOCHROMASIA 1+; POLYCHROMASIA 1+; TARGET CELLS FEW
[2021-05-28 05:16] LABS: ELLIPTOCYTES FEW
[2021-05-28] MEDS ORDERED: calcium chloride 100 MG/1 ML inj IV ONE (05:25)
[2021-05-28] MEDS ORDERED: calcium chloride inj. 2,000 MG in normal saline 100ml IV soln 80 ML IV ONE (05:30)
--- NOTE | 2021-05-28 06:07 | NUR ---
Problems reprioritized. Patient report given, questions answered & plan of care reviewed with ROBERTO Landrum.
--- NOTE | 2021-05-28 06:30 | NUR ---
Received report from ROBERTO Marley
[2021-05-28] MEDS: sucralfate 1 gm tablet PO SCH ×5 (07:00→20:14)
[2021-05-28] MEDS ORDERED: dextrose 50%-water 50ml dispensing syringe IV ONE (07:41)
[2021-05-28 07:59] LABS: BASOPHILS # (AUTO) 0.1 X10'3 (0-0.2); BASOPHILS % (AUTO) 0.5 % (0-1); EOSINOPHILS % (AUTO) 0.1 % (0-6); HEMATOCRIT 29.3 % (35.0-45.0); HEMOGLOBIN 9.4 g/dl (12.0-16.0); LYMPHOCYTES # (AUTO) 0.4 X10'3 (1.1-4.8); MEAN CORPUSCULAR HEMOGLOBIN 29.8 PG (27.0-31.0); MEAN CORPUSCULAR HGB CONC 32.2 g/dL (33.0-36.5); MEAN CORPUSCULAR VOLUME 92.6 FL (78-98); MEAN PLATELET VOLUME 8.3 FL (7.4-10.4); MONOCYTES # (AUTO) 0.7 X10'3 (0-0.9); MONOCYTES % (AUTO) 3.8 % (2-12); NEUTROPHILS # (AUTO) 18.1 X10'3 (1.8-7.7); NEUTROPHILS % (AUTO) 93.6 % (42-75); PLATELET COUNT 137 X10'3 (140-440); RED BLOOD COUNT 3.16 X10'6 (4.20-5.60); RED CELL DISTRIBUTION WIDTH 16.3 % (11.5-14.5); WHITE BLOOD COUNT 19.4 X10'3 (4.5-11.0)
[2021-05-28] MEDS: K and/or MAG REPLACEMENT MC SCH ×2 (08:00→18:40)
[2021-05-28 08:08] LABS: ALBUMIN 0.9 G/DL (3.4-5.0); ANION GAP 16 (8-16); BLOOD UREA NITROGEN 67 MG/DL (7-18); BUN/CREATININE RATIO 22.5 (6.6-38.0); CHLORIDE 97 MMOL/L (99-107); CREATININE 2.98 MG/DL (0.40-0.90); MAGNESIUM 2.1 MG/DL (1.5-2.4); PHOSPHORUS 3.8 MG/DL (2.3-4.5); POTASSIUM 4.9 MMOL/L (3.5-5.1); SODIUM 128 MMOL/L (135-145); TOTAL CARBON DIOXIDE 15.4 MMOL/L (24-32); eGFR 16 ML/MIN
[2021-05-28 08:10] LABS: GLUCOSE 38 MG/DL (70-104)
[2021-05-28 08:50] LABS: NUCLEATED RED BLOOD CELLS 7 /100WBC (0-0); PLATELET ESTIMATE DECREASED; TOTAL CELLS COUNTED 100
[2021-05-28 08:51] LABS: BURR CELLS 1+; ELLIPTOCYTES FEW; HYPOCHROMASIA 1+; POLYCHROMASIA 1+
[2021-05-28] MEDS: calcium carbonate 500mg tablet PO SCH ×3 (08:53→17:30)
[2021-05-28] MEDS: sevelamer carbonate 800mg tablet PO SCH ×3 (08:53→17:30)
[2021-05-28] MEDS: calcitriol 0.25mcg capsule PO SCH (08:54)
[2021-05-28] MEDS: NUT.TX.IMP.RENAL FXN,LAC-REDUC (Nepro) 237 ML VANILLA PO SCH ×3 (08:54→20:15)
[2021-05-28] MEDS: amiodarone 200mg tablet PO SCH ×2 (08:54→20:14)
[2021-05-28] MEDS: piperacillin/tazo 3.375gm/50ml 50 ML IV SCH ×2 (08:54→20:14)
[2021-05-28] MEDS: oxybutynin 5mg tablet PO SCH (08:54)
[2021-05-28] MEDS ORDERED: SINCALIDE IV PRN (09:12)
[2021-05-28] MEDS ORDERED: NORMAL SALINE IV PRN (09:12)
[2021-05-28] MEDS ORDERED: Dextrose 10%-water IV solution 1,000 ML IV SCH (09:35)
[2021-05-28] MEDS: aspirin 81mg tab.chew PO SCH (09:45)
[2021-05-28] MEDS: pantoprazole 40MG/NS 100ML BAG 100 ML IV SCH (11:25)
[2021-05-28] MEDS: SODIUM BICARBONATE IV SCH (11:30)
[2021-05-28] MEDS: WATER IV SCH (11:30)
[2021-05-28] MEDS: DEXTROSE 10% IV SCH (11:30)
[2021-05-28] MEDS: normal saline 1000ml 1,000 ML IV SCH (12:20)
[2021-05-28] MEDS: NORepinephrine 8mg/ 250ml NS 250 ML IV SCH ×2 (13:00→16:54)
--- NOTE | 2021-05-28 14:08 | NUR ---
TF consult: Pt continues eating poorly, down to 0% PO intake of meals and refusing ONS. Pt pending Corpak placement at this time. TF recommendations in place for once Corpak is placed and pt able to receive nutrition support. Noted pt with several low blood sugars this morning. Per RN once a new glucometer was used patient's BG level was improved to 195 mg/dL. Will continue to follow closely and make recommendations as appropriate. Recommendations: 1) Once Corpak placed, continuous Vital AF with 60 mL/hr goal rate. To provide 1440 mL total volume/day, 1728 kcal, 108 g protein, and 1168 mL water 2) Additional water per MD given CVVH 3) Prealbumin q Thursday/ 4) Daily scaled weights; adjust TF as appropriate once scaled wt is obtained 5) Advance to regular diet as medically indicated given poor PO intake and pt requiring electrolyte replacement; continue with NGT until pt able to consistently tolerate PO intake greater than 65% of meals 6) Once PO: honor pt food preferences: chopped meat, oatmeal and toast WB; likes fruit; dislikes cream of wheat and fish fish 7) Discontinue Nepro TID; pt dislikes and refuses ONS 8) Routine Phos binder per MD 9) Bowel care per rx Addendum: 05/28/21 at [address] Amended: Links added.
[2021-05-28 14:26] LABS: HEMOGLOBIN 8.2 g/dl (12.0-16.0); MONOCYTES # (AUTO) 1.3 X10'3 (0-0.9); NEUTROPHILS # (AUTO) 17.9 X10'3 (1.8-7.7); NEUTROPHILS % (AUTO) 89.2 % (42-75); WHITE BLOOD COUNT 20.1 X10'3 (4.5-11.0)
[2021-05-28 14:29] LABS: BASOPHILS # (AUTO) 0.1 X10'3 (0-0.2); BASOPHILS % (AUTO) 0.3 % (0-1); EOSINOPHILS # (AUTO) 0.1 X10'3 (0-0.9); EOSINOPHILS % (AUTO) 0.3 % (0-6); HEMATOCRIT 25.3 % (35.0-45.0); LYMPHOCYTES # (AUTO) 0.7 X10'3 (1.1-4.8); LYMPHOCYTES % (AUTO) 3.6 % (21-51); MEAN CORPUSCULAR HEMOGLOBIN 29.3 PG (27.0-31.0); MEAN CORPUSCULAR HGB CONC 32.6 g/dL (33.0-36.5); MEAN CORPUSCULAR VOLUME 90.1 FL (78-98); MEAN PLATELET VOLUME 8.4 FL (7.4-10.4); MONOCYTES % (AUTO) 6.6 % (2-12); PLATELET COUNT 121 X10'3 (140-440); RED BLOOD COUNT 2.81 X10'6 (4.20-5.60); RED CELL DISTRIBUTION WIDTH 16.4 % (11.5-14.5)
[2021-05-28 14:37] LABS: ALBUMIN 0.7 G/DL (3.4-5.0); ANION GAP 15 (8-16); BLOOD UREA NITROGEN 58 MG/DL (7-18); BUN/CREATININE RATIO 21.3 (6.6-38.0); CHLORIDE 100 MMOL/L (99-107); CREATININE 2.72 MG/DL (0.40-0.90); GLUCOSE 110 MG/DL (70-104); PHOSPHORUS 3.3 MG/DL (2.3-4.5); POTASSIUM 4.6 MMOL/L (3.5-5.1); SODIUM 130 MMOL/L (135-145); TOTAL CARBON DIOXIDE 15.1 MMOL/L (24-32); eGFR 18 ML/MIN
[2021-05-28 14:42] LABS: MAGNESIUM 1.9 MG/DL (1.5-2.4)
[2021-05-28] MEDS: Duosol 4K/3 Ca (w/calcium) 5,000 ML HE SCH ×2 (16:00→18:37)
[2021-05-28] MEDS ORDERED: morphine 2 MG/ML inj. syringe IV PRN (18:25)
--- NOTE | 2021-05-28 18:39 | NUR ---
Report given to ROBERTO Marley
--- NOTE | 2021-05-28 18:39 | NUR ---
Patient in room CICU 2013. I have received report from ROBERTO Landrum and had the opportunity to ask questions and assume patient care.
[2021-05-28 19:30] LABS: BASOPHILS # (AUTO) 0.1 X10'3 (0-0.2); EOSINOPHILS # (AUTO) 0.1 X10'3 (0-0.9); EOSINOPHILS % (AUTO) 0.6 % (0-6); HEMATOCRIT 24.4 % (35.0-45.0); MONOCYTES # (AUTO) 1.2 X10'3 (0-0.9); NEUTROPHILS # (AUTO) 18.5 X10'3 (1.8-7.7)
[2021-05-28 19:32] LABS: BASOPHILS % (AUTO) 0.5 % (0-1); LYMPHOCYTES # (AUTO) 0.9 X10'3 (1.1-4.8); LYMPHOCYTES % (AUTO) 4.3 % (21-51); MEAN CORPUSCULAR HEMOGLOBIN 29.5 PG (27.0-31.0); MEAN CORPUSCULAR HGB CONC 32.8 g/dL (33.0-36.5); MEAN CORPUSCULAR VOLUME 89.8 FL (78-98); MEAN PLATELET VOLUME 8.1 FL (7.4-10.4); MONOCYTES % (AUTO) 5.7 % (2-12); NEUTROPHILS % (AUTO) 88.9 % (42-75); PLATELET COUNT 107 X10'3 (140-440); RED BLOOD COUNT 2.71 X10'6 (4.20-5.60); RED CELL DISTRIBUTION WIDTH 16.1 % (11.5-14.5); WHITE BLOOD COUNT 20.8 X10'3 (4.5-11.0)
[2021-05-28 19:51] LABS: ALBUMIN 0.7 G/DL (3.4-5.0); ANION GAP 14 (8-16); BLOOD UREA NITROGEN 56 MG/DL (7-18); BUN/CREATININE RATIO 21.2 (6.6-38.0); CHLORIDE 100 MMOL/L (99-107); CREATININE 2.64 MG/DL (0.40-0.90); GLUCOSE 149 MG/DL (70-104); MAGNESIUM 1.8 MG/DL (1.5-2.4); PHOSPHORUS 3.2 MG/DL (2.3-4.5); POTASSIUM 4.4 MMOL/L (3.5-5.1); SODIUM 132 MMOL/L (135-145); TOTAL CARBON DIOXIDE 17.6 MMOL/L (24-32); eGFR 19 ML/MIN
[2021-05-28] MEDS: morphine 2 MG/ML inj. syringe IV PRN (20:17)
[2021-05-28 20:56] LABS: NUCLEATED RED BLOOD CELLS 6 /100WBC (0-0); TOTAL CELLS COUNTED 100
[2021-05-28 20:57] LABS: ANISOCYTOSIS 1+; PLATELET ESTIMATE DECREASED
[2021-05-28 20:58] LABS: POLYCHROMASIA 1+
[2021-05-28 21:00] LABS: BURR CELLS FEW; HYPOCHROMASIA 1+
[2021-05-28 21:02] LABS: ELLIPTOCYTES FEW
--- NOTE | 2021-05-28 22:25 | NUR ---
around 1929, Patient's CVVH machine alarmed 3 times saying check for arterial air, no air found in line, part of line looked like vacuum air. Was unable to fix problem therefore attempted to flush line to return blood, when I did this it seemed to fix the problem. This happened a second time and again I flushed the line and it fixed the problem. This happened within 30 minutes of the last time. Elías RN (charge nurse) notified of the reoccurring issue and he suggested to switch the arterial and venous line if the problem occurs again. The problem did happen again so I switched the lines in attempts to fix it, machine was able to restart without having to flush it. patient received 300mL of fluid when it was flushed the two times before. The same alarm has not reoccurred since I switched the lines, will continue to monitor.
[2021-05-29] VITALS (26 sets, daily range): BP systolic 87–143; BP diastolic 46–71
[2021-05-29] MEDS: NORepinephrine 8mg/ 250ml NS 250 ML IV SCH (00:13)
[2021-05-29] MEDS: DEXTROSE 10% IV SCH (01:09)
[2021-05-29] MEDS: WATER IV SCH (01:09)
[2021-05-29] MEDS: SODIUM BICARBONATE IV SCH (01:09)
[2021-05-29 01:24] LABS: BASOPHILS # (AUTO) 0.1 X10'3 (0-0.2); EOSINOPHILS % (AUTO) 0.7 % (0-6); HEMATOCRIT 24.4 % (35.0-45.0); LYMPHOCYTES # (AUTO) 1.1 X10'3 (1.1-4.8); MEAN CORPUSCULAR HEMOGLOBIN 29.4 PG (27.0-31.0); MONOCYTES # (AUTO) 1.6 X10'3 (0-0.9); RED CELL DISTRIBUTION WIDTH 16.6 % (11.5-14.5)
[2021-05-29 01:26] LABS: BASOPHILS % (AUTO) 0.5 % (0-1); EOSINOPHILS # (AUTO) 0.2 X10'3 (0-0.9); LYMPHOCYTES % (AUTO) 4.9 % (21-51); MEAN CORPUSCULAR HGB CONC 32.7 g/dL (33.0-36.5); MEAN PLATELET VOLUME 8.4 FL (7.4-10.4); MONOCYTES % (AUTO) 7.4 % (2-12); NEUTROPHILS # (AUTO) 19.1 X10'3 (1.8-7.7); NEUTROPHILS % (AUTO) 86.5 % (42-75); PLATELET COUNT 117 X10'3 (140-440); RED BLOOD COUNT 2.71 X10'6 (4.20-5.60); WHITE BLOOD COUNT 22.1 X10'3 (4.5-11.0)
[2021-05-29 01:42] LABS: ALBUMIN 0.8 G/DL (3.4-5.0); ANION GAP 11 (8-16); BLOOD UREA NITROGEN 51 MG/DL (7-18); BUN/CREATININE RATIO 21.3 (6.6-38.0); CHLORIDE 101 MMOL/L (99-107); CREATINE KINASE 284 U/L (26-192); CREATININE 2.39 MG/DL (0.40-0.90); GLUCOSE 166 MG/DL (70-104); MAGNESIUM 1.7 MG/DL (1.5-2.4); POTASSIUM 4.2 MMOL/L (3.5-5.1); SODIUM 132 MMOL/L (135-145); eGFR 21 ML/MIN
--- NOTE | 2021-05-29 01:50 | NUR ---
CVVH machine alarming blood leak high, unable to silence alarm or fix problem. Similar thing happened early in the day, per report. veneer matcher Fatimah called. She states that she is on her way. Patient disconnected from machine and ashlie flushed.
--- NOTE | 2021-05-29 02:45 | NUR ---
spring production supervisor Fatimah at bedside. She is swapping out the CVVH machine for a new one. Will restart CVVH here shortly.
[2021-05-29] MEDS: phenylephrine 1% (X-tra strg) 15ml nasal spray NS PRN (02:59)
[2021-05-29] MEDS: Duosol 4K/3 Ca (w/calcium) 5,000 ML HE SCH ×7 (03:03→22:59)
--- NOTE | 2021-05-29 05:58 | NUR ---
CVVH machine with frequent effluent pressure low alarms, all instructions on screen tried, called graphics software engineer and she had no other suggestions so was asked to call tech support, they had us look at the yellow line near the cartridge and on the left side it was kinked over the red line, one the line was unkinked the problem was resolved.
--- NOTE | 2021-05-29 06:07 | NUR ---
Problems reprioritized. Patient report given, questions answered & plan of care reviewed with ROBERTO Landrum.
[2021-05-29 07:43] LABS: BASOPHILS # (AUTO) 0.1 X10'3 (0-0.2); EOSINOPHILS # (AUTO) 0.1 X10'3 (0-0.9); HEMATOCRIT 22.4 % (35.0-45.0); HEMOGLOBIN 7.2 g/dl (12.0-16.0); NEUTROPHILS % (AUTO) 87.8 % (42-75)
[2021-05-29 07:44] LABS: BASOPHILS % (AUTO) 0.4 % (0-1); EOSINOPHILS % (AUTO) 0.2 % (0-6); LYMPHOCYTES % (AUTO) 4.3 % (21-51); MEAN CORPUSCULAR HEMOGLOBIN 29.3 PG (27.0-31.0); MEAN CORPUSCULAR HGB CONC 32.2 g/dL (33.0-36.5); MEAN PLATELET VOLUME 8.7 FL (7.4-10.4); MONOCYTES # (AUTO) 1.7 X10'3 (0-0.9); MONOCYTES % (AUTO) 7.3 % (2-12); NEUTROPHILS # (AUTO) 20.9 X10'3 (1.8-7.7); PLATELET COUNT 105 X10'3 (140-440); RED BLOOD COUNT 2.46 X10'6 (4.20-5.60); RED CELL DISTRIBUTION WIDTH 16.9 % (11.5-14.5); WHITE BLOOD COUNT 23.8 X10'3 (4.5-11.0)
[2021-05-29 07:51] LABS: ALBUMIN 0.8 G/DL (3.4-5.0); ANION GAP 7 (8-16); BLOOD UREA NITROGEN 45 MG/DL (7-18); BUN/CREATININE RATIO 21.2 (6.6-38.0); CHLORIDE 103 MMOL/L (99-107); CREATININE 2.12 MG/DL (0.40-0.90); GLUCOSE 160 MG/DL (70-104); MAGNESIUM 1.9 MG/DL (1.5-2.4); PHOSPHORUS 2.7 MG/DL (2.3-4.5); POTASSIUM 3.9 MMOL/L (3.5-5.1); SODIUM 132 MMOL/L (135-145); TOTAL CARBON DIOXIDE 21.7 MMOL/L (24-32); eGFR 24 ML/MIN
[2021-05-29] MEDS: K and/or MAG REPLACEMENT MC SCH ×2 (08:00→20:00)
[2021-05-29] MEDS: NUT.TX.IMP.RENAL FXN,LAC-REDUC (Nepro) 237 ML VANILLA PO SCH ×3 (08:00→18:00)
[2021-05-29 08:26] LABS: ANISOCYTOSIS 1+; NUCLEATED RED BLOOD CELLS 26 /100WBC (0-0); PLATELET ESTIMATE DECREASED; TOTAL CELLS COUNTED 100
[2021-05-29 08:27] LABS: POIKILOCYTOSIS FEW; POLYCHROMASIA 1+; SMUDGE CELLS FEW; TARGET CELLS 1+
[2021-05-29 08:28] LABS: TOXIC GRANULATION 1+; TOXIC VACUOLATION FEW
[2021-05-29] MEDS: sevelamer carbonate 800mg tablet PO SCH ×3 (08:30→17:30)
[2021-05-29] MEDS ORDERED: fentaNYL/PF 50MCG/1 ML 2ML syringe IV ONE (09:50)
[2021-05-29] MEDS ORDERED: midazolam 1 mg/ML 2ml injection IV ONE (09:50)
[2021-05-29] MEDS: pantoprazole 40MG/NS 100ML BAG 100 ML IV SCH (10:02)
[2021-05-29] MEDS: DAPTOmycin inj. 500 MG in normal saline 100ml IV soln 100 ML IV SCH (10:02)
[2021-05-29] MEDS: piperacillin/tazo 3.375gm/50ml 50 ML IV SCH ×2 (10:02→20:18)
[2021-05-29] MEDS: morphine 2 MG/ML inj. syringe IV PRN (10:04)
[2021-05-29] MEDS: amiodarone 200mg tablet PO SCH ×2 (10:04→20:17)
[2021-05-29] MEDS: oxybutynin 5mg tablet PO SCH (10:05)
[2021-05-29] MEDS: calcitriol 0.25mcg capsule PO SCH (10:05)
[2021-05-29] MEDS: calcium carbonate 500mg tablet PO SCH ×3 (10:05→17:30)
[2021-05-29] MEDS: aspirin 81mg tab.chew PO SCH (10:05)
[2021-05-29] MEDS: sucralfate 1 gm tablet PO SCH ×4 (10:05→20:17)
[2021-05-29] MEDS: vasopressin inj. 40 UNIT in dextrose 5%-water 50ml 38 ML IV SCH ×2 (10:12→22:00)
[2021-05-29] MEDS: fludrocortisone acetate 0.1mg tablet PO SCH (11:24)
[2021-05-29] MEDS: sodium bicarbonate (8.4%) inj. 150 MEQ in dextrose 5%-water 1,000 ML IV SCH ×2 (11:25→22:55)
--- NOTE | 2021-05-29 12:26 | NUR ---
F/u: Noted pt did not have a Corpak placed. Per RN at critical care rounds patient consumed some of the ONS yesterday though is now NPO. Pt has had insufficient nutrition since admit (05/13) though unlikely to obtain NGT placement at this time. D/w RN recommendation to discontinue TF diet order in EMR and update with PO diet order as appropriate. Will leave TF recommendations below for if pt to receive nutrition support. Recommendations: 1) Advance to regular diet as medically indicated given poor PO intake hx and requiring electrolyte replacement 2) Once PO: honor pt food preferences: chopped meat, oatmeal and toast WB; likes fruit; dislikes cream of wheat and fish fish 3) Nepro TIDWM with chocolate per pt preference; discontinue if pt not accepting of ONS; pt dislikes Nepro 4) IF TF, continuous Vital AF with 60 mL/hr goal rate. To provide 1440 mL total volume/day, 1728 kcal, 108 g protein, and 1168 mL water 5) IF TF, additional water per MD given CVVH 6) IF TF, prealbumin q Thursday/; Daily scaled weights; adjust TF as appropriate once scaled wt is obtained 7) Routine Phos binder per MD 8) Bowel care per rx 9) Scaled weight this admit; weekly scaled weights thereafter Addendum: 05/29/21 at [address] Amended: Links added.
[2021-05-29 16:00] LABS: BASOPHILS # (AUTO) 0.1 X10'3 (0-0.2); BASOPHILS % (AUTO) 0.4 % (0-1); EOSINOPHILS # (AUTO) 0.2 X10'3 (0-0.9); EOSINOPHILS % (AUTO) 0.7 % (0-6); HEMATOCRIT 25.4 % (35.0-45.0); HEMOGLOBIN 8.4 g/dl (12.0-16.0); LYMPHOCYTES % (AUTO) 4.3 % (21-51); MEAN CORPUSCULAR HEMOGLOBIN 29.3 PG (27.0-31.0); MEAN CORPUSCULAR HGB CONC 32.9 g/dL (33.0-36.5); MEAN CORPUSCULAR VOLUME 89.1 FL (78-98); MEAN PLATELET VOLUME 8.3 FL (7.4-10.4); MONOCYTES # (AUTO) 2.5 X10'3 (0-0.9); MONOCYTES % (AUTO) 10.4 % (2-12); NEUTROPHILS # (AUTO) 19.9 X10'3 (1.8-7.7); NEUTROPHILS % (AUTO) 84.2 % (42-75); PLATELET COUNT 73 X10'3 (140-440); RED BLOOD COUNT 2.85 X10'6 (4.20-5.60); RED CELL DISTRIBUTION WIDTH 15.9 % (11.5-14.5); WHITE BLOOD COUNT 23.6 X10'3 (4.5-11.0)
[2021-05-29 16:29] LABS: ALANINE AMINOTRANSFERASE 166 U/L (12-78); ALBUMIN 0.8 G/DL (3.4-5.0); ALBUMIN/GLOBULIN RATIO 0.3 (1.1-1.5); ALKALINE PHOSPHATASE 178 IU/L (46-116); ANION GAP 11 (8-16); ASPARTATE AMINO TRANSFERASE 115 U/L (10-37); BILIRUBIN,TOTAL 3.4 MG/DL (0.1-1.0); BLOOD UREA NITROGEN 36 MG/DL (7-18); BUN/CREATININE RATIO 19.5 (6.6-38.0); CHLORIDE 103 MMOL/L (99-107); CREATININE 1.85 MG/DL (0.40-0.90); GLUCOSE 159 MG/DL (70-104); MAGNESIUM 1.7 MG/DL (1.5-2.4); PHOSPHORUS 2.2 MG/DL (2.3-4.5); SODIUM 138 MMOL/L (135-145); TOTAL CARBON DIOXIDE 23.8 MMOL/L (24-32); eGFR 28 ML/MIN
[2021-05-29 16:32] LABS: ANISOCYTOSIS 1+; NUCLEATED RED BLOOD CELLS 24 /100WBC (0-0); PLATELET ESTIMATE DECREASED; TOTAL CELLS COUNTED 100
[2021-05-29 16:33] LABS: POLYCHROMASIA 2+
--- NOTE | 2021-05-29 18:31 | NUR ---
Patient in room CICU 2013. I have received report from Lucita MEJIA and had the opportunity to ask questions and assume patient care.
[2021-05-29 19:44] LABS: EOSINOPHILS # (AUTO) 0.2 X10'3 (0-0.9); MEAN CORPUSCULAR HEMOGLOBIN 29.6 PG (27.0-31.0)
[2021-05-29 19:45] LABS: ALBUMIN 0.8 G/DL (3.4-5.0); ANION GAP 11 (8-16); BLOOD UREA NITROGEN 33 MG/DL (7-18); BUN/CREATININE RATIO 20.2 (6.6-38.0); CHLORIDE 103 MMOL/L (99-107); CREATININE 1.63 MG/DL (0.40-0.90); GLUCOSE 142 MG/DL (70-104); MAGNESIUM 1.8 MG/DL (1.5-2.4); PHOSPHORUS 1.9 MG/DL (2.3-4.5); SODIUM 139 MMOL/L (135-145); TOTAL CARBON DIOXIDE 25.2 MMOL/L (24-32); eGFR 32 ML/MIN
[2021-05-29 19:46] LABS: BASOPHILS # (AUTO) 0.2 X10'3 (0-0.2); BASOPHILS % (AUTO) 0.7 % (0-1); EOSINOPHILS % (AUTO) 0.6 % (0-6); HEMATOCRIT 24.4 % (35.0-45.0); LYMPHOCYTES # (AUTO) 1.4 X10'3 (1.1-4.8); LYMPHOCYTES % (AUTO) 5.4 % (21-51); MEAN CORPUSCULAR HGB CONC 32.9 g/dL (33.0-36.5); MEAN CORPUSCULAR VOLUME 89.9 FL (78-98); MEAN PLATELET VOLUME 9.1 FL (7.4-10.4); MONOCYTES # (AUTO) 2.9 X10'3 (0-0.9); MONOCYTES % (AUTO) 10.9 % (2-12); NEUTROPHILS # (AUTO) 21.7 X10'3 (1.8-7.7); NEUTROPHILS % (AUTO) 82.4 % (42-75); PLATELET COUNT 72 X10'3 (140-440); RED BLOOD COUNT 2.71 X10'6 (4.20-5.60); RED CELL DISTRIBUTION WIDTH 16.1 % (11.5-14.5)
[2021-05-29 19:50] LABS: WHITE BLOOD COUNT 26.3 X10'3 (4.5-11.0)
[2021-05-29] MEDS: sodium phosphate inj. 30 MMOL in normal saline 250ml IV soln 250 ML IV PRN (22:00)
[2021-05-30] VITALS (24 sets, daily range): BP systolic 81–127; BP diastolic 33–72
--- NOTE | 2021-05-30 00:30 | NUR ---
Generator check at 0000, CVVH machine did not power back on until nursing followed the instructions and got it running again. Was unable to get 0000 numbers. 0100 numbers are not accurate d/t being powered off @0000 and 0030. Message in HX page states "Volume since communication restored 05/30/21 @0028.
[2021-05-30] MEDS: Duosol 4K/3 Ca (w/calcium) 5,000 ML HE SCH ×8 (01:09→19:53)
[2021-05-30] MEDS: morphine 2 MG/ML inj. syringe IV PRN (01:10)
[2021-05-30 01:38] LABS: BASOPHILS # (AUTO) 0.1 X10'3 (0-0.2); EOSINOPHILS # (AUTO) 0.3 X10'3 (0-0.9); EOSINOPHILS % (AUTO) 1.6 % (0-6); HEMOGLOBIN 7.9 g/dl (12.0-16.0); WHITE BLOOD COUNT 19.7 X10'3 (4.5-11.0)
[2021-05-30 01:39] LABS: BASOPHILS % (AUTO) 0.3 % (0-1); LYMPHOCYTES # (AUTO) 1.3 X10'3 (1.1-4.8); LYMPHOCYTES % (AUTO) 6.7 % (21-51); MEAN CORPUSCULAR HEMOGLOBIN 29.5 PG (27.0-31.0); MEAN CORPUSCULAR VOLUME 89.4 FL (78-98); MEAN PLATELET VOLUME 9.3 FL (7.4-10.4); MONOCYTES % (AUTO) 10.1 % (2-12); NEUTROPHILS % (AUTO) 81.3 % (42-75); PLATELET COUNT 66 X10'3 (140-440); RED BLOOD COUNT 2.68 X10'6 (4.20-5.60); RED CELL DISTRIBUTION WIDTH 16.2 % (11.5-14.5)
[2021-05-30 01:44] LABS: ANISOCYTOSIS 1+; NUCLEATED RED BLOOD CELLS 26 /100WBC (0-0); PLATELET ESTIMATE DECREASED; TOTAL CELLS COUNTED 100
[2021-05-30 01:45] LABS: POLYCHROMASIA 1+
[2021-05-30 01:57] LABS: ALBUMIN 0.8 G/DL (3.4-5.0); ANION GAP 8 (8-16); BLOOD UREA NITROGEN 29 MG/DL (7-18); BUN/CREATININE RATIO 20.4 (6.6-38.0); CHLORIDE 104 MMOL/L (99-107); CREATININE 1.42 MG/DL (0.40-0.90); GLUCOSE 123 MG/DL (70-104); MAGNESIUM 1.6 MG/DL (1.5-2.4); PHOSPHORUS 2.7 MG/DL (2.3-4.5); POTASSIUM 3.9 MMOL/L (3.5-5.1); SODIUM 139 MMOL/L (135-145); TOTAL CARBON DIOXIDE 26.9 MMOL/L (24-32); eGFR 38 ML/MIN
[2021-05-30] MEDS ORDERED: NORMAL SALINE IV SCH (04:00)
[2021-05-30] MEDS ORDERED: GENTAMICIN IV SCH (04:00)
[2021-05-30] MEDS: sodium bicarbonate (8.4%) inj. 150 MEQ in dextrose 5%-water 1,000 ML IV SCH (04:13)
--- NOTE | 2021-05-30 06:36 | NUR ---
Problems reprioritized. Patient report given, questions answered & plan of care reviewed with Nuno MEJIA.
[2021-05-30 07:37] LABS: BASOPHILS # (AUTO) 0.1 X10'3 (0-0.2); HEMOGLOBIN 7.8 g/dl (12.0-16.0)
[2021-05-30 07:39] LABS: BASOPHILS % (AUTO) 0.3 % (0-1); EOSINOPHILS # (AUTO) 0.2 X10'3 (0-0.9); EOSINOPHILS % (AUTO) 1.1 % (0-6); HEMATOCRIT 23.4 % (35.0-45.0); LYMPHOCYTES % (AUTO) 4.9 % (21-51); MEAN CORPUSCULAR HEMOGLOBIN 29.7 PG (27.0-31.0); MEAN CORPUSCULAR HGB CONC 33.3 g/dL (33.0-36.5); MEAN CORPUSCULAR VOLUME 89.3 FL (78-98); MEAN PLATELET VOLUME 8.5 FL (7.4-10.4); MONOCYTES % (AUTO) 9.8 % (2-12); NEUTROPHILS # (AUTO) 16.7 X10'3 (1.8-7.7); NEUTROPHILS % (AUTO) 83.9 % (42-75); PLATELET COUNT 53 X10'3 (140-440); RED BLOOD COUNT 2.62 X10'6 (4.20-5.60); RED CELL DISTRIBUTION WIDTH 16.6 % (11.5-14.5); WHITE BLOOD COUNT 19.9 X10'3 (4.5-11.0)
[2021-05-30] MEDS: calcium carbonate 500mg tablet PO SCH ×3 (07:51→17:02)
[2021-05-30 07:52] LABS: ALANINE AMINOTRANSFERASE 158 U/L (12-78); ALBUMIN 0.7 G/DL (3.4-5.0); ALBUMIN/GLOBULIN RATIO 0.2 (1.1-1.5); ALKALINE PHOSPHATASE 186 IU/L (46-116); ANION GAP 9 (8-16); ASPARTATE AMINO TRANSFERASE 107 U/L (10-37); BILIRUBIN,DIRECT 3.3 MG/DL (0-0.3); BILIRUBIN,TOTAL 3.9 MG/DL (0.1-1.0); BLOOD UREA NITROGEN 24 MG/DL (7-18); BUN/CREATININE RATIO 18.6 (6.6-38.0); CHLORIDE 104 MMOL/L (99-107); CREATININE 1.29 MG/DL (0.40-0.90); GLUCOSE 104 MG/DL (70-104); MAGNESIUM 1.6 MG/DL (1.5-2.4); PHOSPHORUS 2.2 MG/DL (2.3-4.5); POTASSIUM 3.9 MMOL/L (3.5-5.1); SODIUM 141 MMOL/L (135-145); TOTAL CARBON DIOXIDE 27.8 MMOL/L (24-32); eGFR 42 ML/MIN
[2021-05-30] MEDS: pantoprazole 40MG/NS 100ML BAG 100 ML IV SCH (07:52)
[2021-05-30] MEDS: fludrocortisone acetate 0.1mg tablet PO SCH (07:52)
[2021-05-30] MEDS: calcitriol 0.25mcg capsule PO SCH (07:52)
[2021-05-30] MEDS: piperacillin/tazo 3.375gm/50ml 50 ML IV SCH ×2 (07:52→19:48)
[2021-05-30] MEDS: oxybutynin 5mg tablet PO SCH (07:52)
[2021-05-30] MEDS: amiodarone 200mg tablet PO SCH ×2 (07:52→19:52)
[2021-05-30] MEDS: aspirin 81mg tab.chew PO SCH (07:52)
[2021-05-30] MEDS: sucralfate 1 gm tablet PO SCH ×4 (07:52→20:44)
[2021-05-30] MEDS: NUT.TX.IMP.RENAL FXN,LAC-REDUC (Nepro) 237 ML VANILLA PO SCH ×3 (08:00→17:51)
[2021-05-30] MEDS: K and/or MAG REPLACEMENT MC SCH ×2 (08:00→19:52)
[2021-05-30] MEDS: sevelamer carbonate 800mg tablet PO SCH ×3 (08:30→17:30)
--- NOTE | 2021-05-30 09:06 | NUR ---
Dr. Cruz roundnohemi. Okay to D/C bicarb drip as venous co2 27 on AM labs. Hold phosph replacements per MD. Orders not to take off 50ml/hour until pressors are turned off.
[2021-05-30 09:28] LABS: ANISOCYTOSIS 1+; NUCLEATED RED BLOOD CELLS 15 /100WBC (0-0); PLATELET ESTIMATE DECREASED; TOTAL CELLS COUNTED 100
[2021-05-30 09:29] LABS: HYPOCHROMASIA 1+; POLYCHROMASIA 1+
[2021-05-30] MEDS: normal saline 1000ml 1,000 ML IV SCH (12:20)
[2021-05-30] MEDS: NORepinephrine 8mg/ 250ml NS 250 ML IV SCH (12:22)
[2021-05-30] MEDS ORDERED: ondansetron 4mg rapidly disintigrating tab PO PRN (12:30)
[2021-05-30 13:26] LABS: BASOPHILS % (AUTO) 0.2 % (0-1); EOSINOPHILS # (AUTO) 0.3 X10'3 (0-0.9); EOSINOPHILS % (AUTO) 1.7 % (0-6); HEMATOCRIT 22.5 % (35.0-45.0); HEMOGLOBIN 7.5 g/dl (12.0-16.0); LYMPHOCYTES % (AUTO) 6.2 % (21-51); MEAN CORPUSCULAR HEMOGLOBIN 29.8 PG (27.0-31.0); MEAN CORPUSCULAR HGB CONC 33.2 g/dL (33.0-36.5); MEAN CORPUSCULAR VOLUME 89.8 FL (78-98); MEAN PLATELET VOLUME 9.8 FL (7.4-10.4); MONOCYTES # (AUTO) 1.5 X10'3 (0-0.9); MONOCYTES % (AUTO) 8.8 % (2-12); NEUTROPHILS # (AUTO) 13.9 X10'3 (1.8-7.7); NEUTROPHILS % (AUTO) 83.1 % (42-75); PLATELET COUNT 54 X10'3 (140-440); WHITE BLOOD COUNT 16.7 X10'3 (4.5-11.0)
[2021-05-30 13:57] LABS: ALBUMIN 0.8 G/DL (3.4-5.0); ANION GAP 1 (8-16); BLOOD UREA NITROGEN 22 MG/DL (7-18); CHLORIDE 107 MMOL/L (99-107); GLUCOSE 98 MG/DL (70-104); MAGNESIUM 2.4 MG/DL (1.5-2.4); PHOSPHORUS 2.3 MG/DL (2.3-4.5); SODIUM 138 MMOL/L (135-145); TOTAL CARBON DIOXIDE 29.7 MMOL/L (24-32); eGFR 51 ML/MIN
--- NOTE | 2021-05-30 18:27 | NUR ---
Problems reprioritized. Patient report given, questions answered & plan of care reviewed with Mac RN.
[2021-05-30 20:10] LABS: BASOPHILS # (AUTO) 0.1 X10'3 (0-0.2); EOSINOPHILS # (AUTO) 0.2 X10'3 (0-0.9); EOSINOPHILS % (AUTO) 1.2 % (0-6); HEMOGLOBIN 7.6 g/dl (12.0-16.0); RED BLOOD COUNT 2.53 X10'6 (4.20-5.60)
[2021-05-30 20:12] LABS: BASOPHILS % (AUTO) 0.8 % (0-1); LYMPHOCYTES # (AUTO) 1.3 X10'3 (1.1-4.8); MEAN CORPUSCULAR HEMOGLOBIN 29.8 PG (27.0-31.0); MEAN CORPUSCULAR HGB CONC 32.9 g/dL (33.0-36.5); MEAN CORPUSCULAR VOLUME 90.7 FL (78-98); MEAN PLATELET VOLUME 8.7 FL (7.4-10.4); MONOCYTES # (AUTO) 1.4 X10'3 (0-0.9); MONOCYTES % (AUTO) 8.8 % (2-12); NEUTROPHILS # (AUTO) 12.7 X10'3 (1.8-7.7); NEUTROPHILS % (AUTO) 81.2 % (42-75); PLATELET COUNT 51 X10'3 (140-440); RED CELL DISTRIBUTION WIDTH 16.7 % (11.5-14.5); WHITE BLOOD COUNT 15.6 X10'3 (4.5-11.0)
[2021-05-30 20:20] LABS: ALBUMIN 0.8 G/DL (3.4-5.0); ANION GAP 7 (8-16); BLOOD UREA NITROGEN 18 MG/DL (7-18); BUN/CREATININE RATIO 16.8 (6.6-38.0); CHLORIDE 104 MMOL/L (99-107); CREATININE 1.07 MG/DL (0.40-0.90); GLUCOSE 86 MG/DL (70-104); MAGNESIUM 2.1 MG/DL (1.5-2.4); POTASSIUM 3.9 MMOL/L (3.5-5.1); SODIUM 138 MMOL/L (135-145); TOTAL CARBON DIOXIDE 26.6 MMOL/L (24-32); eGFR 52 ML/MIN
[2021-05-30 20:33] LABS: PHOSPHORUS 1.8 MG/DL (2.3-4.5)
[2021-05-30] MEDS: polyethylene glycol 3350 17gm powd pack PO SCH (20:44)
[2021-05-30] MEDS: sodium phosphate inj. 30 MMOL in normal saline 250ml IV soln 250 ML IV PRN (22:07)
[2021-05-31] VITALS (23 sets, daily range): BP systolic 77–140; BP diastolic 42–71
[2021-05-31] MEDS: Duosol 4K/3 Ca (w/calcium) 5,000 ML HE SCH ×10 (00:48→20:14)
[2021-05-31] MEDS: LORazepam 0.5 MG tablet PO PRN (01:30)
[2021-05-31] MEDS: HYDROcodone/acetaminophen 5mg/325mg tablet PO PRN (01:30)
[2021-05-31 03:03] LABS: BASOPHILS # (AUTO) 0.1 X10'3 (0-0.2); EOSINOPHILS # (AUTO) 0.2 X10'3 (0-0.9); HEMOGLOBIN 7.5 g/dl (12.0-16.0); LYMPHOCYTES # (AUTO) 1.3 X10'3 (1.1-4.8); RED CELL DISTRIBUTION WIDTH 16.6 % (11.5-14.5); WHITE BLOOD COUNT 16.2 X10'3 (4.5-11.0)
[2021-05-31 03:04] LABS: BASOPHILS % (AUTO) 0.5 % (0-1); EOSINOPHILS % (AUTO) 1.3 % (0-6); HEMATOCRIT 22.6 % (35.0-45.0); LYMPHOCYTES % (AUTO) 7.7 % (21-51); MEAN CORPUSCULAR HEMOGLOBIN 30.1 PG (27.0-31.0); MEAN CORPUSCULAR VOLUME 91.1 FL (78-98); MEAN PLATELET VOLUME 9.4 FL (7.4-10.4); MONOCYTES # (AUTO) 1.7 X10'3 (0-0.9); MONOCYTES % (AUTO) 10.4 % (2-12); NEUTROPHILS # (AUTO) 12.9 X10'3 (1.8-7.7); NEUTROPHILS % (AUTO) 80.1 % (42-75); RED BLOOD COUNT 2.48 X10'6 (4.20-5.60)
[2021-05-31 03:09] LABS: ALBUMIN 0.8 G/DL (3.4-5.0); ANION GAP 6 (8-16); BLOOD UREA NITROGEN 17 MG/DL (7-18); BUN/CREATININE RATIO 18.9 (6.6-38.0); CHLORIDE 108 MMOL/L (99-107); GLUCOSE 70 MG/DL (70-104); POTASSIUM 3.8 MMOL/L (3.5-5.1); SODIUM 141 MMOL/L (135-145); TOTAL CARBON DIOXIDE 27.4 MMOL/L (24-32); eGFR 64 ML/MIN
[2021-05-31 03:11] LABS: PLATELET COUNT 48 X10'3 (140-440)
[2021-05-31 03:25] LABS: PHOSPHORUS 2.8 MG/DL (2.3-4.5)
[2021-05-31] MEDS: NORMAL SALINE IV SCH (03:51)
[2021-05-31] MEDS: GENTAMICIN IV SCH (03:51)
--- NOTE | 2021-05-31 04:30 | NUR ---
RN Note -Tele rounds with Dr. Lopez. Addressed a-fib with RVR and critical platelets. Received order to start IV amiodarone.
[2021-05-31] MEDS ORDERED: amiodarone 150mg/dext, iso-os 100 ML IV ONE (05:05)
[2021-05-31] MEDS: amiodarone/D5 360MG/200ML BAG 200 ML IV SCH ×2 (05:47→11:06)
[2021-05-31] MEDS: DAPTOmycin inj. 500 MG in normal saline 100ml IV soln 100 ML IV SCH (07:29)
[2021-05-31] MEDS: piperacillin/tazo 3.375gm/50ml 50 ML IV SCH (07:31)
[2021-05-31] MEDS: fludrocortisone acetate 0.1mg tablet PO SCH (07:31)
[2021-05-31] MEDS: calcium carbonate 500mg tablet PO SCH ×3 (07:31→17:09)
[2021-05-31] MEDS: oxybutynin 5mg tablet PO SCH (07:31)
[2021-05-31] MEDS: calcitriol 0.25mcg capsule PO SCH (07:31)
[2021-05-31] MEDS: aspirin 81mg tab.chew PO SCH (07:31)
[2021-05-31] MEDS: sucralfate 1 gm tablet PO SCH ×4 (07:31→20:18)
[2021-05-31] MEDS: pantoprazole 40MG/NS 100ML BAG 100 ML IV SCH (07:32)
[2021-05-31 07:39] LABS: EOSINOPHILS # (AUTO) 0.1 X10'3 (0-0.9); EOSINOPHILS % (AUTO) 0.9 % (0-6); HEMOGLOBIN 7.2 g/dl (12.0-16.0); LYMPHOCYTES # (AUTO) 1.2 X10'3 (1.1-4.8)
[2021-05-31 07:41] LABS: BASOPHILS % (AUTO) 0.2 % (0-1); LYMPHOCYTES % (AUTO) 7.7 % (21-51); MEAN CORPUSCULAR HEMOGLOBIN 30.4 PG (27.0-31.0); MEAN CORPUSCULAR HGB CONC 33.2 g/dL (33.0-36.5); MEAN CORPUSCULAR VOLUME 91.5 FL (78-98); MEAN PLATELET VOLUME 8.9 FL (7.4-10.4); MONOCYTES # (AUTO) 1.4 X10'3 (0-0.9); NEUTROPHILS # (AUTO) 12.9 X10'3 (1.8-7.7); NEUTROPHILS % (AUTO) 82.2 % (42-75); RED BLOOD COUNT 2.37 X10'6 (4.20-5.60); RED CELL DISTRIBUTION WIDTH 16.6 % (11.5-14.5); WHITE BLOOD COUNT 15.7 X10'3 (4.5-11.0)
[2021-05-31 07:44] LABS: HEMATOCRIT 21.7 % (35.0-45.0); PLATELET COUNT 47 X10'3 (140-440)
[2021-05-31] MEDS: NUT.TX.IMP.RENAL FXN,LAC-REDUC (Nepro) 237 ML VANILLA PO SCH ×4 (07:52→19:37)
[2021-05-31] MEDS: K and/or MAG REPLACEMENT MC SCH ×2 (07:53→19:38)
[2021-05-31 07:56] LABS: ALANINE AMINOTRANSFERASE 150 U/L (12-78); ALBUMIN 0.7 G/DL (3.4-5.0); ALBUMIN/GLOBULIN RATIO 0.2 (1.1-1.5); ALKALINE PHOSPHATASE 197 IU/L (46-116); ANION GAP 7 (8-16); ASPARTATE AMINO TRANSFERASE 98 U/L (10-37); BILIRUBIN,DIRECT 3.3 MG/DL (0-0.3); BILIRUBIN,TOTAL 3.9 MG/DL (0.1-1.0); BLOOD UREA NITROGEN 15 MG/DL (7-18); CHLORIDE 106 MMOL/L (99-107); CREATININE 0.88 MG/DL (0.40-0.90); GLUCOSE 79 MG/DL (70-104); MAGNESIUM 1.7 MG/DL (1.5-2.4); PHOSPHORUS 2.8 MG/DL (2.3-4.5); POTASSIUM 3.8 MMOL/L (3.5-5.1); SODIUM 140 MMOL/L (135-145); TOTAL CARBON DIOXIDE 27.1 MMOL/L (24-32); eGFR 66 ML/MIN
[2021-05-31] MEDS: sevelamer carbonate 800mg tablet PO SCH ×3 (08:30→17:09)
[2021-05-31 08:44] LABS: NUCLEATED RED BLOOD CELLS 15 /100WBC (0-0); TOTAL CELLS COUNTED 100
[2021-05-31 08:45] LABS: ANISOCYTOSIS 1+; PLATELET ESTIMATE DECREASED; TARGET CELLS FEW
[2021-05-31 08:46] LABS: POIKILOCYTOSIS FEW; POLYCHROMASIA FEW
[2021-05-31] MEDS: potassium Cl 20mEq/100mL bag 100 ML IV PRN ×2 (08:54→10:01)
[2021-05-31] MEDS ORDERED: EPOETIN ALFA-EPBX 20,000 UNIT/ML 1 ML MDV SQ SCH (09:20)
[2021-05-31] MEDS: vasopressin inj. 40 UNIT in dextrose 5%-water 50ml 38 ML IV SCH (09:20)
[2021-05-31] MEDS: dronabinol 2.5mg capsule PO SCH ×2 (09:48→20:12)
[2021-05-31] MEDS: amiodarone 200mg tablet PO SCH ×2 (11:40→20:11)
--- NOTE | 2021-05-31 12:06 | NUR ---
Reassessment: Patient's diet has been appropriately advanced to regular though pt continues to eat poorly with 0-25% PO intake not meeting estimated nutrient needs. Noted pt hasn't been receiving ONS, d/w dietary to send Nepro TIDWM per rx. Patient and patient's mother seen at bedside with RN present to obtain food preferences which were d/w dietary, see below. Patient's mother has been encouraged to bring in any food that pt may like to optimize PO intake. RD contact information provided and pt/mother encouraged to reach out for any additional food preferences. Noted pt started on routine Marinol today, hopeful that that will improve PO intake. LBM 05/25, pt started on routine bowel care 05/30. Pt continues on CVVH at this time. Recommend NGT placement for TF if PO intake does not improve. Will continue to follow closely. Recommendations: 1) Continue regular diet given poor PO intake hx and requiring electrolyte replacement 2) [place] pt food preferences: chopped meat, oatmeal and toast WB; milk and gelatin TIDWM, likes fruit; dislikes cream of wheat and fish fish 3) Nepro TIDWM with chocolate per pt preference; discontinue if pt not accepting of ONS; pt dislikes Nepro 4) Encourage PO intake; allow family to bring in food 5) Routine appetite stimulant per MD 6) IF TF, continuous Vital AF with 60 mL/hr goal rate. To provide 1440 mL total volume/day, 1728 kcal, 108 g protein, and 1168 mL water 7) IF TF, additional water per MD given CVVH 8) Routine Phos binder per MD 9) Routine bowel care 10) Weekly scaled weights Addendum: 05/31/21 at [address] Amended: Links added.
[2021-05-31 13:28] LABS: EOSINOPHILS # (AUTO) 0.1 X10'3 (0-0.9); EOSINOPHILS % (AUTO) 0.8 % (0-6); HEMOGLOBIN 7.5 g/dl (12.0-16.0); LYMPHOCYTES # (AUTO) 1.1 X10'3 (1.1-4.8)
[2021-05-31 13:30] LABS: BASOPHILS # (AUTO) 0.1 X10'3 (0-0.2); BASOPHILS % (AUTO) 0.4 % (0-1); HEMATOCRIT 22.6 % (35.0-45.0); LYMPHOCYTES % (AUTO) 7.1 % (21-51); MEAN CORPUSCULAR HEMOGLOBIN 30.3 PG (27.0-31.0); MEAN CORPUSCULAR HGB CONC 33.1 g/dL (33.0-36.5); MEAN CORPUSCULAR VOLUME 91.4 FL (78-98); MEAN PLATELET VOLUME 8.9 FL (7.4-10.4); MONOCYTES # (AUTO) 1.7 X10'3 (0-0.9); MONOCYTES % (AUTO) 10.6 % (2-12); NEUTROPHILS % (AUTO) 81.1 % (42-75); RED BLOOD COUNT 2.48 X10'6 (4.20-5.60); RED CELL DISTRIBUTION WIDTH 16.7 % (11.5-14.5)
[2021-05-31 13:32] LABS: PLATELET COUNT 48 X10'3 (140-440)
[2021-05-31 14:18] LABS: ALBUMIN 0.8 G/DL (3.4-5.0); ANION GAP 7 (8-16); BLOOD UREA NITROGEN 15 MG/DL (7-18); BUN/CREATININE RATIO 17.9 (6.6-38.0); CALCIUM 7.4 MG/DL (8.5-10.1); CHLORIDE 106 MMOL/L (99-107); CREATININE 0.84 MG/DL (0.40-0.90); GLUCOSE 101 MG/DL (70-104); MAGNESIUM 1.9 MG/DL (1.5-2.4); POTASSIUM 4.5 MMOL/L (3.5-5.1); SODIUM 139 MMOL/L (135-145); TOTAL CARBON DIOXIDE 26.1 MMOL/L (24-32); eGFR 69 ML/MIN
[2021-05-31 14:22] LABS: PHOSPHORUS 2.5 MG/DL (2.3-4.5)
--- NOTE | 2021-05-31 18:32 | NUR ---
Problems reprioritized. Patient report given, questions answered & plan of care reviewed with Mac RN.
[2021-05-31 20:11] LABS: ALBUMIN 0.8 G/DL (3.4-5.0); ANION GAP 8 (8-16); BLOOD UREA NITROGEN 14 MG/DL (7-18); BUN/CREATININE RATIO 17.7 (6.6-38.0); CALCIUM 7.7 MG/DL (8.5-10.1); CHLORIDE 105 MMOL/L (99-107); CREATININE 0.79 MG/DL (0.40-0.90); GLUCOSE 99 MG/DL (70-104); MAGNESIUM 1.9 MG/DL (1.5-2.4); POTASSIUM 4.2 MMOL/L (3.5-5.1); SODIUM 139 MMOL/L (135-145); TOTAL CARBON DIOXIDE 25.9 MMOL/L (24-32); eGFR 74 ML/MIN
[2021-05-31 20:12] LABS: PHOSPHORUS 2.2 MG/DL (2.3-4.5)
[2021-05-31] MEDS: metoprolol tartrate 12.5mg (1/2 tablet) PO SCH (20:12)
[2021-05-31] MEDS: polyethylene glycol 3350 17gm powd pack PO SCH (20:18)
[2021-05-31 20:32] LABS: EOSINOPHILS # (AUTO) 0.2 X10'3 (0-0.9); HEMOGLOBIN 7.6 g/dl (12.0-16.0); LYMPHOCYTES # (AUTO) 1.4 X10'3 (1.1-4.8)
[2021-05-31 20:33] LABS: BASOPHILS # (AUTO) 0.1 X10'3 (0-0.2); BASOPHILS % (AUTO) 0.4 % (0-1); EOSINOPHILS % (AUTO) 0.9 % (0-6); HEMATOCRIT 23.6 % (35.0-45.0); LYMPHOCYTES % (AUTO) 8.6 % (21-51); MEAN CORPUSCULAR HEMOGLOBIN 30.1 PG (27.0-31.0); MEAN CORPUSCULAR HGB CONC 32.4 g/dL (33.0-36.5); MEAN CORPUSCULAR VOLUME 92.7 FL (78-98); MEAN PLATELET VOLUME 9.1 FL (7.4-10.4); MONOCYTES # (AUTO) 1.4 X10'3 (0-0.9); MONOCYTES % (AUTO) 8.6 % (2-12); NEUTROPHILS # (AUTO) 13.5 X10'3 (1.8-7.7); NEUTROPHILS % (AUTO) 81.5 % (42-75); PLATELET COUNT 51 X10'3 (140-440); RED BLOOD COUNT 2.54 X10'6 (4.20-5.60); RED CELL DISTRIBUTION WIDTH 16.9 % (11.5-14.5); WHITE BLOOD COUNT 16.6 X10'3 (4.5-11.0)
--- NOTE | 2021-05-31 22:20 | NUR ---
RN Note -MD Communication Dr. Helm called regarding pt needing to go to CT and MRI to identify/RO source of infection.
[2021-05-31] MEDS ORDERED: iohexol 350MG/ML 100ml bottle IV ONE (22:45)
[2021-05-31] MEDS ORDERED: iohexol 350 MG/ML 50ML vial IV ONE (22:45)
--- NOTE | 2021-05-31 23:30 | NUR ---
RN Note -Pt agitated and dyspneic, pulling off oxygen and desaturating. Placed on nonrebreather mask. Lung sounds are wet and wheezy bilaterally. Called Dr. Cole for orders. Orders received.
[2021-06-01] VITALS (29 sets, daily range): BP systolic 11–147; BP diastolic 35–72
[2021-06-01] MEDS ORDERED: haloperidol lactate 5mg/ml inj IM ONE (00:25)
[2021-06-01] MEDS: Duosol 4K/3 Ca (w/calcium) 5,000 ML HE SCH ×6 (01:02→10:34)
[2021-06-01] MEDS: dexmedetomidine/D5W 100mL 100 ML IV SCH (01:48)
[2021-06-01 03:56] LABS: RED CELL DISTRIBUTION WIDTH 16.9 % (11.5-14.5)
[2021-06-01 03:58] LABS: BASOPHILS % (AUTO) 0.1 % (0-1); EOSINOPHILS # (AUTO) 0.1 X10'3 (0-0.9); EOSINOPHILS % (AUTO) 0.4 % (0-6); LYMPHOCYTES # (AUTO) 0.7 X10'3 (1.1-4.8); LYMPHOCYTES % (AUTO) 4.6 % (21-51); MEAN CORPUSCULAR HEMOGLOBIN 30.5 PG (27.0-31.0); MEAN CORPUSCULAR HGB CONC 32.6 g/dL (33.0-36.5); MEAN CORPUSCULAR VOLUME 93.8 FL (78-98); MEAN PLATELET VOLUME 9.1 FL (7.4-10.4); MONOCYTES # (AUTO) 1.1 X10'3 (0-0.9); MONOCYTES % (AUTO) 7.6 % (2-12); NEUTROPHILS # (AUTO) 12.6 X10'3 (1.8-7.7); NEUTROPHILS % (AUTO) 87.3 % (42-75); RED BLOOD COUNT 2.24 X10'6 (4.20-5.60); WHITE BLOOD COUNT 14.4 X10'3 (4.5-11.0)
[2021-06-01 04:10] LABS: ALBUMIN 0.7 G/DL (3.4-5.0); ANION GAP 7 (8-16); BLOOD UREA NITROGEN 15 MG/DL (7-18); BUN/CREATININE RATIO 18.5 (6.6-38.0); CALCIUM 7.3 MG/DL (8.5-10.1); CHLORIDE 106 MMOL/L (99-107); CREATININE 0.81 MG/DL (0.40-0.90); GLUCOSE 109 MG/DL (70-104); MAGNESIUM 1.8 MG/DL (1.5-2.4); PHOSPHORUS 2.3 MG/DL (2.3-4.5); POTASSIUM 4.1 MMOL/L (3.5-5.1); SODIUM 139 MMOL/L (135-145); TOTAL CARBON DIOXIDE 25.7 MMOL/L (24-32); eGFR 72 ML/MIN
[2021-06-01] MEDS: GENTAMICIN IV SCH (04:13)
[2021-06-01] MEDS: NORMAL SALINE IV SCH (04:13)
[2021-06-01 04:15] LABS: HEMOGLOBIN 6.8 g/dl (12.0-16.0)
[2021-06-01 04:16] LABS: PLATELET COUNT 48 X10'3 (140-440)
--- NOTE | 2021-06-01 04:30 | NUR ---
RN Note -Critical lab values reported to Dr. Lopez during rounds. One unit of blood ordered. Type and screen drawn.
[2021-06-01] MEDS: sucralfate 1 gm tablet PO SCH ×4 (07:00→20:35)
[2021-06-01 07:53] LABS: TOTAL CELLS COUNTED 100
[2021-06-01 07:54] LABS: ANISOCYTOSIS 1+; PLATELET ESTIMATE DECREASED; SCHISTOCYTES FEW
[2021-06-01 07:58] LABS: NUCLEATED RED BLOOD CELLS 13 /100WBC (0-0)
[2021-06-01] MEDS: K and/or MAG REPLACEMENT MC SCH ×2 (08:00→20:00)
[2021-06-01] MEDS: NUT.TX.IMP.RENAL FXN,LAC-REDUC (Nepro) 237 ML VANILLA PO SCH ×3 (08:00→17:28)
[2021-06-01 08:01] LABS: HYPOCHROMASIA 1+; POLYCHROMASIA FEW
[2021-06-01 08:02] LABS: STOMATOCYTES FEW
[2021-06-01] MEDS: oxybutynin 5mg tablet PO SCH (08:39)
[2021-06-01] MEDS: aspirin 81mg tab.chew PO SCH (08:39)
[2021-06-01] MEDS: sevelamer carbonate 800mg tablet PO SCH ×3 (08:39→17:27)
[2021-06-01] MEDS: amiodarone 200mg tablet PO SCH ×2 (08:39→20:06)
[2021-06-01] MEDS: fludrocortisone acetate 0.1mg tablet PO SCH (08:39)
[2021-06-01] MEDS: calcium carbonate 500mg tablet PO SCH ×3 (08:40→17:27)
[2021-06-01] MEDS: calcitriol 0.25mcg capsule PO SCH (08:40)
[2021-06-01] MEDS: pantoprazole 40MG/NS 100ML BAG 100 ML IV SCH (08:40)
[2021-06-01] MEDS: metoprolol tartrate 12.5mg (1/2 tablet) PO SCH ×2 (08:40→20:06)
[2021-06-01 08:44] LABS: ALBUMIN 0.7 G/DL (3.4-5.0); ANION GAP 2 (8-16); BLOOD UREA NITROGEN 15 MG/DL (7-18); BUN/CREATININE RATIO 21.1 (6.6-38.0); CALCIUM 7.3 MG/DL (8.5-10.1); CHLORIDE 108 MMOL/L (99-107); CREATININE 0.71 MG/DL (0.40-0.90); GLUCOSE 101 MG/DL (70-104); MAGNESIUM 1.7 MG/DL (1.5-2.4); PHOSPHORUS 2.3 MG/DL (2.3-4.5); SODIUM 138 MMOL/L (135-145); TOTAL CARBON DIOXIDE 28.3 MMOL/L (24-32); eGFR 84 ML/MIN
[2021-06-01 08:46] LABS: EOSINOPHILS # (AUTO) 0.1 X10'3 (0-0.9); WHITE BLOOD COUNT 16.4 X10'3 (4.5-11.0)
[2021-06-01 08:48] LABS: BASOPHILS % (AUTO) 0.1 % (0-1); EOSINOPHILS % (AUTO) 0.5 % (0-6); LYMPHOCYTES # (AUTO) 1.1 X10'3 (1.1-4.8); LYMPHOCYTES % (AUTO) 6.5 % (21-51); MEAN CORPUSCULAR HEMOGLOBIN 30.5 PG (27.0-31.0); MEAN CORPUSCULAR HGB CONC 32.8 g/dL (33.0-36.5); MEAN CORPUSCULAR VOLUME 93.1 FL (78-98); MEAN PLATELET VOLUME 9.1 FL (7.4-10.4); MONOCYTES # (AUTO) 1.5 X10'3 (0-0.9); MONOCYTES % (AUTO) 9.1 % (2-12); NEUTROPHILS # (AUTO) 13.7 X10'3 (1.8-7.7); NEUTROPHILS % (AUTO) 83.8 % (42-75); RED BLOOD COUNT 2.17 X10'6 (4.20-5.60)
[2021-06-01 08:55] LABS: HEMATOCRIT 20.2 % (35.0-45.0); HEMOGLOBIN 6.6 g/dl (12.0-16.0)
[2021-06-01 08:56] LABS: PLATELET COUNT 42 X10'3 (140-440)
[2021-06-01] MEDS: dronabinol 2.5mg capsule PO SCH ×2 (08:59→20:06)
[2021-06-01] MEDS: normal saline 1000ml 1,000 ML IV SCH (12:20)
[2021-06-01 14:50] LABS: ALBUMIN 0.8 G/DL (3.4-5.0); ANION GAP 4 (8-16); BLOOD UREA NITROGEN 15 MG/DL (7-18); BUN/CREATININE RATIO 20.3 (6.6-38.0); CALCIUM 7.3 MG/DL (8.5-10.1); CHLORIDE 106 MMOL/L (99-107); CREATININE 0.74 MG/DL (0.40-0.90); GLUCOSE 106 MG/DL (70-104); MAGNESIUM 1.7 MG/DL (1.5-2.4); PHOSPHORUS 2.1 MG/DL (2.3-4.5); POTASSIUM 3.9 MMOL/L (3.5-5.1); SODIUM 137 MMOL/L (135-145); TOTAL CARBON DIOXIDE 26.6 MMOL/L (24-32); eGFR 80 ML/MIN
[2021-06-01 14:56] LABS: BASOPHILS # (AUTO) 0.1 X10'3 (0-0.2); EOSINOPHILS # (AUTO) 0.1 X10'3 (0-0.9); HEMATOCRIT 26.9 % (35.0-45.0); HEMOGLOBIN 8.9 g/dl (12.0-16.0); LYMPHOCYTES # (AUTO) 1.1 X10'3 (1.1-4.8); MEAN CORPUSCULAR VOLUME 92.3 FL (78-98)
[2021-06-01 14:58] LABS: BASOPHILS % (AUTO) 0.5 % (0-1); EOSINOPHILS % (AUTO) 0.5 % (0-6); LYMPHOCYTES % (AUTO) 6.6 % (21-51); MEAN CORPUSCULAR HEMOGLOBIN 30.6 PG (27.0-31.0); MEAN CORPUSCULAR HGB CONC 33.1 g/dL (33.0-36.5); MEAN PLATELET VOLUME 9.5 FL (7.4-10.4); MONOCYTES # (AUTO) 1.6 X10'3 (0-0.9); NEUTROPHILS # (AUTO) 14.4 X10'3 (1.8-7.7); NEUTROPHILS % (AUTO) 83.4 % (42-75); RED BLOOD COUNT 2.92 X10'6 (4.20-5.60); WHITE BLOOD COUNT 17.3 X10'3 (4.5-11.0)
[2021-06-01 15:04] LABS: PLATELET COUNT 42 X10'3 (140-440)
[2021-06-01] MEDS: polyethylene glycol 3350 17gm powd pack PO SCH (20:35)
[2021-06-02] VITALS (15 sets, daily range): BP systolic 103–128; BP diastolic 51–71
[2021-06-02] MEDS: dexmedetomidine/D5W 100mL 100 ML IV SCH (01:15)
[2021-06-02] MEDS ORDERED: MESSAGE TO NURSING IV ONE (03:30)
[2021-06-02] MEDS: GENTAMICIN IV SCH (03:30)
[2021-06-02] MEDS: NORMAL SALINE IV SCH (03:30)
[2021-06-02] MEDS: Duosol 4K/3 Ca (w/calcium) 5,000 ML HE SCH ×3 (05:38→09:49)
[2021-06-02] MEDS: sucralfate 1 gm tablet PO SCH ×2 (06:52→11:00)
[2021-06-02 07:17] LABS: EOSINOPHILS % (AUTO) 0.3 % (0-6)
[2021-06-02 07:19] LABS: BASOPHILS # (AUTO) 0.1 X10'3 (0-0.2); BASOPHILS % (AUTO) 0.6 % (0-1); EOSINOPHILS # (AUTO) 0.1 X10'3 (0-0.9); HEMATOCRIT 26.8 % (35.0-45.0); HEMOGLOBIN 8.9 g/dl (12.0-16.0); LYMPHOCYTES # (AUTO) 1.4 X10'3 (1.1-4.8); LYMPHOCYTES % (AUTO) 8.5 % (21-51); MEAN CORPUSCULAR HEMOGLOBIN 30.8 PG (27.0-31.0); MEAN CORPUSCULAR VOLUME 93.3 FL (78-98); MEAN PLATELET VOLUME 8.9 FL (7.4-10.4); MONOCYTES # (AUTO) 2.2 X10'3 (0-0.9); MONOCYTES % (AUTO) 13.1 % (2-12); NEUTROPHILS # (AUTO) 13.1 X10'3 (1.8-7.7); NEUTROPHILS % (AUTO) 77.5 % (42-75); PLATELET COUNT 56 X10'3 (140-440); RED BLOOD COUNT 2.88 X10'6 (4.20-5.60); RED CELL DISTRIBUTION WIDTH 16.4 % (11.5-14.5); WHITE BLOOD COUNT 16.9 X10'3 (4.5-11.0)
--- NOTE | 2021-06-02 07:32 | NUR ---
Patient in room [facility] 2013. I have received report from and had the opportunity to ask questions and assume patient care. Addendum: 06/02/21 at 0734 by Tracy Johnson RN Report received from Sol MEJIA @ [id number] questions answered, care assumed. pt right side lying in bed, HOB at 30 degrees, NS running. breathing even and non labored. HR tachy and baseline. safety measures in place.
[2021-06-02 07:45] LABS: ALANINE AMINOTRANSFERASE 144 U/L (12-78); ALBUMIN 0.8 G/DL (3.4-5.0); ALBUMIN/GLOBULIN RATIO 0.2 (1.1-1.5); ALKALINE PHOSPHATASE 266 IU/L (46-116); ANION GAP 10 (8-16); ASPARTATE AMINO TRANSFERASE 90 U/L (10-37); BILIRUBIN,TOTAL 3.5 MG/DL (0.1-1.0); BLOOD UREA NITROGEN 20 MG/DL (7-18); BUN/CREATININE RATIO 18.5 (6.6-38.0); CALCIUM 7.4 MG/DL (8.5-10.1); CHLORIDE 105 MMOL/L (99-107); CREATININE 1.08 MG/DL (0.40-0.90); GLUCOSE 69 MG/DL (70-104); MAGNESIUM 1.7 MG/DL (1.5-2.4); PHOSPHORUS 2.2 MG/DL (2.3-4.5); SODIUM 139 MMOL/L (135-145); TOTAL CARBON DIOXIDE 24.3 MMOL/L (24-32); TOTAL PROTEIN 4.5 G/DL (6.4-8.2); eGFR 52 ML/MIN
[2021-06-02 07:52] LABS: ANISOCYTOSIS 1+; NUCLEATED RED BLOOD CELLS 6 /100WBC (0-0); PLATELET ESTIMATE DECREASED; POIKILOCYTOSIS 1+; POLYCHROMASIA 2+; TARGET CELLS FEW; TOTAL CELLS COUNTED 100
[2021-06-02] MEDS: NUT.TX.IMP.RENAL FXN,LAC-REDUC (Nepro) 237 ML VANILLA PO SCH ×3 (08:00→18:00)
[2021-06-02] MEDS: oxybutynin 5mg tablet PO SCH (08:00)
[2021-06-02] MEDS: K and/or MAG REPLACEMENT MC SCH (08:00)
[2021-06-02] MEDS: amiodarone 200mg tablet PO SCH (08:00)
[2021-06-02] MEDS: calcitriol 0.25mcg capsule PO SCH (08:00)
[2021-06-02] MEDS: dronabinol 2.5mg capsule PO SCH (08:00)
[2021-06-02] MEDS: aspirin 81mg tab.chew PO SCH (08:00)
[2021-06-02] MEDS: metoprolol tartrate 12.5mg (1/2 tablet) PO SCH (08:00)
[2021-06-02] MEDS ORDERED: dextrose 50%-water 50ml dispensing syringe IV ONE (08:27)
[2021-06-02] MEDS: fludrocortisone acetate 0.1mg tablet PO SCH (08:30)
[2021-06-02] MEDS: calcium carbonate 500mg tablet PO SCH (08:30)
[2021-06-02] MEDS: sevelamer carbonate 800mg tablet PO SCH (08:30)
[2021-06-02] MEDS: pantoprazole 40MG/NS 100ML BAG 100 ML IV SCH (08:58)
[2021-06-02] MEDS: vasopressin inj. 40 UNIT in dextrose 5%-water 50ml 38 ML IV SCH (09:11)
[2021-06-02] MEDS: DAPTOmycin inj. 500 MG in normal saline 100ml IV soln 100 ML IV SCH (09:49)
--- NOTE | 2021-06-02 09:59 | NUR ---
Dr. Plunkett to make rounds pt concisely and deliberately verbalizing she does not want CPR/intubation or further treatment. Pt indicated she did not want HD. pt continue to refuse p.o. meds/nutritional intake. Addendum: 06/02/21 at 1010 by Tracy Johnson RN also discussed pt's low blood sugar this am, in addition to refusing p.o. intake. new order for D20 @ 30ml/hr continuous
[2021-06-02] MEDS ORDERED: DEXTROSE 20% IN WATER 500mL 500 ML IV SCH (10:10)
[2021-06-02] MEDS ORDERED: dextrose 50%-water 50ml dispensing syringe IV PRN ×2 (10:10)
[2021-06-02] MEDS ORDERED: LORazepam 2 mg/ml vial IV PRN (10:35)
--- NOTE | 2021-06-02 11:00 | NUR ---
Pt's Sister Deborah and Mother Paris called. Both in agreement with POC Sister and mother verbalized gratitude and complete agreement with comfort focused care. appropriate grieving/questions noted. all questions answered. Per Deborah, Pt's brother Vish will be heading in and she will call and update Vish. Addendum: 06/02/21 at 1210 by Tracy Johnson RN Pt brothyuliana luna at bedside. Bill in agreement with plan of care.
[2021-06-02] MEDS ORDERED: sodium chloride inj. 154 MEQ in Dextrose 10%-water IV solution 961.5 ML IV SCH (11:15)
[2021-06-02] MEDS ORDERED: Dextrose 10%-water IV solution 1,000 ML IV SCH (11:20)
[2021-06-02] MEDS: LORazepam 2 mg/ml vial IV PRN ×2 (16:13→20:23)
[2021-06-02] MEDS: morphine 2 MG/ML inj. syringe IV PRN ×2 (16:26→22:15)
--- NOTE | 2021-06-02 16:41 | NUR ---
increased restlessness, tachypnea, tachycardia. Ativan and morphine administered prn. lights dim, meditation sounds played from bed, SCDs removed. pt's mother at bedside. soothing light tough and conversation employed. Addendum: 06/02/21 at 1644 by Tracy Johnson RN pt continues comfort focused care. pt's mother at bedside and in agreement with POC.
--- NOTE | 2021-06-02 18:20 | NUR ---
Problems reprioritized. Patient report given, questions answered & plan of care reviewed with Raymundo MEJIA. Pt semi folwers, supported with pillows, eyes closed, tachypnic but appearing with increased comfort, decreased restlessness. pt continues on comfort care. safety measures in place.
--- NOTE | 2021-06-02 20:04 | NUR ---
Problems reprioritized. Patient report given, questions answered & plan of care reviewed with Gabrielle MEJIA.
[2021-06-02] MEDS: polyethylene glycol 3350 17gm powd pack PO SCH (20:17)
[2021-06-03] VITALS: BP 114/63
[2021-06-03] MEDS: LORazepam 2 mg/ml vial IV PRN ×2 (00:12→04:35)
[2021-06-03] MEDS: morphine 2 MG/ML inj. syringe IV PRN ×2 (02:35→08:00)
[2021-06-03 04:00] VITALS: BP 89/53
--- NOTE | 2021-06-03 05:58 | NUR ---
Called Paris the patients mother at this time and informed her about her daughters condition. She said she would be in to see her. Will inform dayshift nurse of the interaction. Patients Bp trending down and this time and the patient is more relaxed. Will continue to monitor.
--- NOTE | 2021-06-03 06:20 | NUR ---
Problems reprioritized. Patient report given, questions answered & plan of care reviewed with Tracy MEJIA.
--- NOTE | 2021-06-03 06:45 | NUR ---
Patient in room CICU 2012. I have received report from Raymundo MEJIA and had the opportunity to ask questions and assume patient care. Pt appears very comfortable in bed, supported with pillows, breathing tachypnic, without ss/sx restlessness. pt's mother arrived and assisted to bedside to be with her daughter through EOL. Safety measures in place. disease process/EOL education completed with pt's mother. understanding verbalized.
[2021-06-03 08:00] VITALS: BP 81/48
[2021-06-03] MEDS: NUT.TX.IMP.RENAL FXN,LAC-REDUC (Nepro) 237 ML VANILLA PO SCH (08:00)
[2021-06-03 09:34] VITALS: BP 0/0
--- NOTE | 2021-06-03 10:20 | NUR ---
Pronouncement of : 1. Time Physician Notified: Dr. Mayes 2. Date of : 06/03/2021 3. Time of : 933 4. DNR/Withdraw life support documented: Yes: DNR comfort focused care. 5. Monitor strip has been placed on chart: Yes 6. Assessment process is of one-minute duration and includes following criteria: a) Patient is unresponsive to all stimuli: yes b) Pupils fixed and non-reactive: yes c) Auscultation of precordium reveals absence of heart tones: yes d) Auscultation of lungs reveals absence of breath sounds: yes e) Absence of blood pressure / all vital signs: yes f) QRS complexes are not present on monitor / EKG strip: yes g) Pacer spikes without capture: n/a 4. Comments: This nurse and pt's mother at bedside at [facility]. Dr. Plunkett on unit and notified. Per family, they would like to wait to call [facility] until all family has arrived to say goodbye. [facility] called at 10am. spoke with Kerry. Reference # [id number]. Pt is not eligible for tissue donation. ok to release remains per donor network. Pt's sister, brother and mother at bedside, grieving appropriately. denied wanting clergy at this time. requesting social sciences lecturer to discuss EOL paperwork. SS notified. pot mortem care provided by this nurse. all belongings collected for family to take home.
--- NOTE | 2021-06-03 10:53 | NUR ---
[facility] called. spoke with Celi. Per Celi, spanish moss picker time is 1.5 hours.
--- NOTE | 2021-06-03 14:20 | NUR ---
Pt remains picked up by "Aaron" from [facility] @ [id number]
[2021-06-04] MEDS ORDERED: amiodarone 200mg tablet PO SCH (08:00)
== END 2021-06-03 14:02 | DRG 987 ==
LOC: ER 18:27 → ED HOLD 23:47 → EDBEDREQ 05-14 16:10 → MED 3N 05-14 20:35 → CICU 2S 05-22 18:30 → PCU 3S 05-23 20:57 → CICU 2S 05-26 21:25
PROVIDERS: ADMIT Internal Medicine; ATTEND Family Medicine
PROC: 30233N1 Transfusion of Nonautologous Red Blood Cells into Peripheral Vein, Percutaneous Approach (ICD-10-PCS; 2021-05-14)
PROC: CF1C1ZZ Planar Nuclear Medicine Imaging of Hepatobiliary System, All using Technetium 99m (Tc-99m) (ICD-10-PCS; 2021-05-15)
PROC: 0F9430Z Drainage of Gallbladder with Drainage Device, Percutaneous Approach (ICD-10-PCS; 2021-05-16)
PROC: BF121ZZ Fluoroscopy of Gallbladder using Low Osmolar Contrast (ICD-10-PCS; 2021-05-18)
PROC: 0FT44ZZ Resection of Gallbladder, Percutaneous Endoscopic Approach (ICD-10-PCS; principal; 2021-05-22 15:42)
PROC: 0W9B3ZZ Drainage of Left Pleural Cavity, Percutaneous Approach (ICD-10-PCS; 2021-05-27)
PROC: 5A1D90Z Performance of Urinary Filtration, Continuous, Greater than 18 hours Per Day (ICD-10-PCS; 2021-05-27)
PROC: 02HV33Z Insertion of Infusion Device into Superior Vena Cava, Percutaneous Approach (ICD-10-PCS; 2021-05-27)
PROC: 5A1D90Z Performance of Urinary Filtration, Continuous, Greater than 18 hours Per Day (ICD-10-PCS; 2021-05-28)
PROC: 5A1D90Z Performance of Urinary Filtration, Continuous, Greater than 18 hours Per Day (ICD-10-PCS; 2021-05-29)
PROC: 5A1D90Z Performance of Urinary Filtration, Continuous, Greater than 18 hours Per Day (ICD-10-PCS; 2021-05-30)
PROC: B32T1ZZ Computerized Tomography (CT Scan) of Left Pulmonary Artery using Low Osmolar Contrast (ICD-10-PCS; 2021-05-31)
PROC: B3201ZZ Computerized Tomography (CT Scan) of Thoracic Aorta using Low Osmolar Contrast (ICD-10-PCS; 2021-05-31)
PROC: B32S1ZZ Computerized Tomography (CT Scan) of Right Pulmonary Artery using Low Osmolar Contrast (ICD-10-PCS; 2021-05-31)
PROC: B4201ZZ Computerized Tomography (CT Scan) of Abdominal Aorta using Low Osmolar Contrast (ICD-10-PCS; 2021-05-31)
PROC: B4241ZZ Computerized Tomography (CT Scan) of Superior Mesenteric Artery using Low Osmolar Contrast (ICD-10-PCS; 2021-05-31)
PROC: B4281ZZ Computerized Tomography (CT Scan) of Bilateral Renal Arteries using Low Osmolar Contrast (ICD-10-PCS; 2021-05-31)
PROC: B42C1ZZ Computerized Tomography (CT Scan) of Pelvic Arteries using Low Osmolar Contrast (ICD-10-PCS; 2021-05-31)
PROC: B42H1ZZ Computerized Tomography (CT Scan) of Bilateral Lower Extremity Arteries using Low Osmolar Contrast (ICD-10-PCS; 2021-05-31)
PROC: B4211ZZ Computerized Tomography (CT Scan) of Celiac Artery using Low Osmolar Contrast (ICD-10-PCS; 2021-05-31)
PROC: BR201ZZ Computerized Tomography (CT Scan) of Cervical Spine using Low Osmolar Contrast (ICD-10-PCS; 2021-05-31)
PROC: BR271ZZ Computerized Tomography (CT Scan) of Thoracic Spine using Low Osmolar Contrast (ICD-10-PCS; 2021-05-31)
PROC: 5A1D90Z Performance of Urinary Filtration, Continuous, Greater than 18 hours Per Day (ICD-10-PCS; 2021-05-31)
PROC: 5A09357 Assistance with Respiratory Ventilation, Less than 24 Consecutive Hours, Continuous Positive Airway Pressure (ICD-10-PCS; 2021-06-01)
PROC: 5A1D90Z Performance of Urinary Filtration, Continuous, Greater than 18 hours Per Day (ICD-10-PCS; 2021-06-01)
DX: T80.211A Bloodstream infection due to central venous catheter, initial encounter (principal); A41.89 Other specified sepsis; I50.33 Acute on chronic diastolic (congestive) heart failure; R65.21 Severe sepsis with septic shock; I33.0 Acute and subacute infective endocarditis; N18.6 End stage renal disease; I63.40 Cerebral infarction due to embolism of unspecified cerebral artery; I21.A1 Myocardial infarction type 2; J96.01 Acute respiratory failure with hypoxia; G93.41 Metabolic encephalopathy; E43 Unspecified severe protein-calorie malnutrition; N17.9 Acute kidney failure, unspecified; D68.59 Other primary thrombophilia; K76.6 Portal hypertension; E87.4 Mixed disorder of acid-base balance; I13.2 Hypertensive heart and chronic kidney disease with heart failure and with stage 5 chronic kidney disease, or end stage renal disease; K81.0 Acute cholecystitis; K92.0 Hematemesis; N39.0 Urinary tract infection, site not specified; D62 Acute posthemorrhagic anemia; E22.2 Syndrome of inappropriate secretion of antidiuretic hormone; Z16.21 Resistance to vancomycin; B95.2 Enterococcus as the cause of diseases classified elsewhere; B96.20 Unspecified Escherichia coli [E. coli] as the cause of diseases classified elsewhere; E78.5 Hyperlipidemia, unspecified; E83.51 Hypocalcemia; E88.09 Other disorders of plasma-protein metabolism, not elsewhere classified; G62.9 Polyneuropathy, unspecified; I34.0 Nonrheumatic mitral (valve) insufficiency; I48.0 Paroxysmal atrial fibrillation; I71.2 Thoracic aortic aneurysm, without rupture; I73.9 Peripheral vascular disease, unspecified; J44.9 Chronic obstructive pulmonary disease, unspecified; K21.9 Gastro-esophageal reflux disease without esophagitis; K70.31 Alcoholic cirrhosis of liver with ascites; Z20.822 Contact with and (suspected) exposure to COVID-19; K82.8 Other specified diseases of gallbladder; K83.8 Other specified diseases of biliary tract; B95.62 Methicillin resistant Staphylococcus aureus infection as the cause of diseases classified elsewhere; B95.4 Other streptococcus as the cause of diseases classified elsewhere; K52.9 Noninfective gastroenteritis and colitis, unspecified; N32.81 Overactive bladder; E83.39 Other disorders of phosphorus metabolism; K76.9 Liver disease, unspecified; Z60.2 Problems related to living alone; R34 Anuria and oliguria; R62.7 Adult failure to thrive; R04.0 Epistaxis; E87.6 Hypokalemia; D69.59 Other secondary thrombocytopenia; Y84.8 Other medical procedures as the cause of abnormal reaction of the patient, or of later complication, without mention of misadventure at the time of the procedure; Z51.5 Encounter for palliative care; Z78.9 Other specified health status; Z87.891 Personal history of nicotine dependence; Z95.1 Presence of aortocoronary bypass graft; Z99.2 Dependence on renal dialysis; Z68.34 Body mass index [BMI] 34.0-34.9, adult; Z88.7 Allergy status to serum and vaccine; Z88.8 Allergy status to other drugs, medicaments and biological substances; Z79.899 Other long term (current) drug therapy; Z79.82 Long term (current) use of aspirin; E16.2 Hypoglycemia, unspecified
CPT/HCPCS: 32555; 36415; 36430; 36600; 47490; 49424; 70486; 70544; 70551; 71045; 71250; 71275; 72126; 72129; 72132; 74174; 74176; 76080; 76700; 76705; 77012; 78226; 80048; 80053; 80061; 80069; 80076; 80202; 81001; 82140; 82248; 82330; 82550; 82728; 82803; 82948; 83540; 83550; 83605; 83615; 83735; 83880; 84100; 84132; 84145; 84157; 84300; 84443; 84484; 85007; 85008; 85018; 85025; 85027; 85610; 85730; 86803; 86885; 86900; 86901; 86920; 87040; 87070; 87077; 87081; 87088; 87102; 87186; 87635; 88108; 88304; 88305; 89051; 90935; 92508; 92616; 93005; 93308; 93312; 93325; 93880; 93970; 93971; 94640; 94660; 94760; 94799; 96365; 96375; 97110; 97161; 97530; 97535; 99291; A4215; A4618; A7000; A7015; A9537; C9113; E1594; G0378; J0282; J0878; J1580; J1630; J1644; J1650; J1815; J1940; J2060; J2250; J2270; J2405; J2543; J3010; J3370; J3475; J3480; J3490; J7030; J7040; J7050; J7060; J7070; J7120; P9016; P9045; P9047; Q0167; Q4081; Q9967; S0020